=== PATIENT | male | born 1940 | race Caucasian/White ===

== ENCOUNTER → 2017-05-03 | Outpatient (CLI) | payer BC ==
[2017-05-03 08:51] LABS: BASO % 0.4 %; BASO ABS # 0.03 K/uL (0-0.2); COMPLETE YES; HEMATOCRIT 52.7 % (42-52); IG% 0.3 %; LYMPH % 14.9 %; LYMPH ABS # 1.15 K/uL (1.2-3.4); MEAN CELL VOLUME 89.6 fL (80-100); MEAN CORPUSCULAR HEMOGLOBIN 30.4 pg (25-34); MONO % 10.9 %; NEUT % 69.5 %; PLATELET COUNT 179 K/uL (130-400); RED BLOOD COUNT 5.88 M/uL (4.7-6.1)
[2017-05-03 09:13] LABS: AST/SGOT 28 U/L (15-37); BLOOD UREA NITROGEN 19 mg/dl (7-18); BUN/CREATININE RATIO 13.7 (10-20); CARBON DIOXIDE 28 mmol/L (21-32); CHLORIDE 105 mmol/L (98-107); GLUCOSE 91 mg/dl (70-99); POTASSIUM 4.1 mmol/L (3.5-5.1); SODIUM 141 mmol/L (136-145)
[2017-05-03 09:17] LABS: CALCIUM 8.4 mg/dl (8.5-10.1)
[2017-05-03 09:20] LABS: ESTIMATED AVERAGE GLUCOSE 123 mg/dl; HA1C FLAG Normal (Normal)
[2017-05-03 09:23] LABS: ALT/SGPT 55 U/L (12-78); CHOLESTEROL 183 mg/dl (0-200); CHOLESTEROL/HDL RATIO 4.1; HDL CHOLESTEROL 45 mg/dl; LDL CHOLESTEROL CALCULATED 102 mg/dl; TRIGLYCERIDES 180 mg/dl (0-150); VERY LOW DENSITY LIPOPROT CALC 36 mg/dl
== END | disposition home or self-care (01) ==
LOC: C.LAB 07:15
DX: E03.9 Hypothyroidism, unspecified (principal); E78.5 Hyperlipidemia, unspecified; R73.02 Impaired glucose tolerance (oral)

== ENCOUNTER → 2017-05-24 | Outpatient (CLI) | payer BC ==
[2017-05-27 20:18] LABS: ACETYLCHOLINE RECEP MODULATING 18; ACETYLCHOLINE RECEPT BLOCKING <15 % inhibit (<15); RECEPTOR BINDING AB <0.30 nmol/L (<=0.30)
== END | disposition home or self-care (01) ==
LOC: C.LAB 07:22
PROVIDERS: ATTEND Physician Assistant
DX: G70.00 Myasthenia gravis without (acute) exacerbation (principal)

== ENCOUNTER → 2017-07-05 | Outpatient (CLI) | payer BC ==
[2017-07-05 10:35] LABS: BASO % 0.4 %; BASO ABS # 0.03 K/uL (0-0.2); COMPLETE YES; EOS % 4.3 %; HEMATOCRIT 50.2 % (42-52); IG% 0.2 %; LYMPH ABS # 0.97 K/uL (1.2-3.4); MEAN CELL VOLUME 91.4 fL (80-100); MEAN CORPUSCULAR HEMOGLOBIN 30.1 pg (25-34); MEAN CORPUSCULAR HGB CONC 32.9 g/dl (32-36); MEAN PLATELET VOLUME 11.5 fL (7.4-10.4); MONO % 14.4 %; NEUT % 68.7 %; PLATELET COUNT 150 K/uL (130-400); RED BLOOD COUNT 5.49 M/uL (4.7-6.1); WHITE BLOOD COUNT 8.11 K/uL (4.8-10.8)
[2017-07-05 10:53] LABS: BLOOD UREA NITROGEN 23 mg/dl (7-18); BUN/CREATININE RATIO 20.5 (10-20); CALCIUM 8.7 mg/dl (8.5-10.1); CARBON DIOXIDE 30 mmol/L (21-32); CHLORIDE 109 mmol/L (98-107); CHOLESTEROL 248 mg/dl (0-200); GLUCOSE 89 mg/dl (70-99); POTASSIUM 4.4 mmol/L (3.5-5.1); SODIUM 140 mmol/L (136-145)
[2017-07-05 11:04] LABS: CHOLESTEROL/HDL RATIO 6.4; HDL CHOLESTEROL 39 mg/dl; LDL CHOLESTEROL CALCULATED 180 mg/dl; THYROID STIMULATING HORMONE 0.238 uIu/ml (0.300-4.500); TRIGLYCERIDES 146 mg/dl (0-150); VERY LOW DENSITY LIPOPROT CALC 29 mg/dl
== END | disposition home or self-care (01) ==
LOC: C.LAB 07:40
PROVIDERS: ATTEND Physician Assistant
DX: E03.9 Hypothyroidism, unspecified (principal); E78.5 Hyperlipidemia, unspecified; E29.1 Testicular hypofunction

== ENCOUNTER → 2017-08-12 | Outpatient (CLI) | payer BC ==
[2017-08-12 15:37] LABS: BASO % 0.3 %; BASO ABS # 0.02 K/uL (0-0.2); COMPLETE YES; HEMATOCRIT 48.7 % (42-52); IG% 0.3 %; LYMPH % 19.4 %; LYMPH ABS # 1.41 K/uL (1.2-3.4); MEAN CELL VOLUME 89.5 fL (80-100); MEAN CORPUSCULAR HEMOGLOBIN 30.1 pg (25-34); MEAN CORPUSCULAR HGB CONC 33.7 g/dl (32-36); MONO % 14.3 %; NEUT % 61.7 %; PLATELET COUNT 155 K/uL (130-400); RED BLOOD COUNT 5.44 M/uL (4.7-6.1); WHITE BLOOD COUNT 7.25 K/uL (4.8-10.8)
== END | disposition home or self-care (01) ==
LOC: C.LAB 14:45
PROVIDERS: ATTEND Physician Assistant
DX: G70.00 Myasthenia gravis without (acute) exacerbation (principal)

== ENCOUNTER → 2017-08-21 | Outpatient (CLI) | payer BC ==
--- NOTE | 2017-08-22 08:37 | PULMONARY FUNCTION TEST ---
Spirometry shows a mild decrease in both forced vital capacity and FEV1 with a normal FEV1/FVC ratio. This would represent mild restriction. Repeat study done following bronchodilator showed no significant change in function. Flow volume loops were consistent with spirometric findings. No prior studies were available for comparison.
== END | disposition home or self-care (01) ==
LOC: C.RC 12:28
DX: R06.00 Dyspnea, unspecified (principal); G70.00 Myasthenia gravis without (acute) exacerbation

== ENCOUNTER → 2017-10-24 | Outpatient (CLI) | payer BC ==
[2017-10-24 12:10] LABS: BASO % 0.4 %; BASO ABS # 0.03 K/uL (0-0.2); COMPLETE YES; EOS % 1.5 %; HEMATOCRIT 50.2 % (42-52); IG% 0.3 %; LYMPH % 10.8 %; LYMPH ABS # 0.78 K/uL (1.2-3.4); MEAN CELL VOLUME 88.7 fL (80-100); MEAN CORPUSCULAR HEMOGLOBIN 29.7 pg (25-34); MEAN CORPUSCULAR HGB CONC 33.5 g/dl (32-36); MEAN PLATELET VOLUME 11.1 fL (7.4-10.4); MONO % 9.8 %; NEUT % 77.2 %; PLATELET COUNT 151 K/uL (130-400); RED BLOOD COUNT 5.66 M/uL (4.7-6.1); WHITE BLOOD COUNT 7.25 K/uL (4.8-10.8)
[2017-10-24 12:22] LABS: ESTIMATED AVERAGE GLUCOSE 123 mg/dl; HA1C FLAG Normal (Normal)
[2017-10-24 12:37] LABS: BLOOD UREA NITROGEN 22 mg/dl (7-18); CALCIUM 8.8 mg/dl (8.5-10.1); CARBON DIOXIDE 27 mmol/L (21-32); CHLORIDE 105 mmol/L (98-107); GLUCOSE 93 mg/dl (70-99); POTASSIUM 4.4 mmol/L (3.5-5.1); SODIUM 137 mmol/L (136-145)
[2017-10-24 12:46] LABS: ALB/GLOB RATIO 1.3 (0.9-2); ALKALINE PHOSPHATASE 72 U/L (45-117); ALT/SGPT 37 U/L (12-78); AST/SGOT 24 U/L (15-37); FERRITIN 332.1 ng/ml (8.0-388.0)
== END | disposition home or self-care (01) ==
LOC: C.LAB 10:19
DX: E03.9 Hypothyroidism, unspecified (principal); R53.83 Other fatigue; F39 Unspecified mood [affective] disorder; E53.8 Deficiency of other specified B group vitamins

== ENCOUNTER → 2018-02-26 | Outpatient (CLI) | payer BC ==
[2018-02-26 12:30] LABS: BASO % 0.3 %; BASO ABS # 0.02 K/uL (0-0.2); EOS % 5.8 %; EOS ABS # 0.34 K/uL (0-0.5); HEMATOCRIT 44.6 % (42-52); HEMOGLOBIN 15.3 g/dL (14.0-18.0); IG# 0.02 K/uL (0.00-0.02); LYMPH % 23.9 %; MEAN CELL VOLUME 88.5 fL (80-100); MEAN CORPUSCULAR HEMOGLOBIN 30.4 pg (25-34); MEAN CORPUSCULAR HGB CONC 34.3 g/dl (32-36); MEAN PLATELET VOLUME 10.9 fL (7.4-10.4); MONO % 11.8 %; MONO ABS # 0.69 K/uL (0.11-0.59); NEUT % 57.9 %; NEUT ABS # 3.38 K/uL (1.4-6.5); PLATELET COUNT 159 K/uL (130-400); RED CELL DISTRIBUTION WIDTH CV 14.5 % (11.5-14.5); RED CELL DISTRIBUTION WIDTH SD 46.9 fL (36.4-46.3); WHITE BLOOD COUNT 5.85 K/uL (4.8-10.8)
[2018-02-26 12:47] LABS: ALBUMIN 3.9 gm/dl (3.4-5.0); ALT/SGPT 37 U/L (12-78); BLOOD UREA NITROGEN 17 mg/dl (7-18); CALCIUM 9.3 mg/dl (8.5-10.1); CARBON DIOXIDE 29 mmol/L (21-32); CREATININE 1.06 mg/dl (0.60-1.40); GLUCOSE 92 mg/dl (70-99); POTASSIUM 4.2 mmol/L (3.5-5.1); SODIUM 137 mmol/L (136-145)
[2018-02-26 12:50] LABS: ALKALINE PHOSPHATASE 60 U/L (45-117); AST/SGOT 28 U/L (15-37); TOTAL PROTEIN 7.4 gm/dl (6.4-8.2)
== END | disposition home or self-care (01) ==
LOC: C.LAB 10:31
PROVIDERS: ATTEND Physician Assistant
DX: G70.00 Myasthenia gravis without (acute) exacerbation (principal)

== ENCOUNTER → 2018-03-25 | Outpatient (CLI) | payer BC ==
--- NOTE | 2018-03-26 04:55 | PAP/PSG TECHNICIAN REPORT ---
[facility] Assessment Nurse Polysomnogram Report Study name: None Report date: 03/26/2018 Study date: 03/25/2018 Referring Physician: Dr. Umang Daly DO Name: KIARA COTA Interpreting Physician: Umang Daly D.O. Date of : 1940 Assessment Nurse: WILFREDO Morley. Sex: Male Age: 77 StudyType: PSG PAP Weight: 185 lbs Height: 77 years, Height 6' 1" Neck Circum:15.75inches BMI: 24.41 Medications: Levothyroxine 137mcg, Mycophenolate Mefetil 500mg, Pyridostigmine Shepherd 60mg, ASA 81mg, Depakote ER 250mg, Mirtazapine 30mg, Multivitamins, Sertraline HCl Vit D3 2000unit Patient History Study started on room air with bipap+ 8/4 in room #6. 77 yr old male here tonight for a bipap titration study. He has been using cpap for many years but has been having difficulty exhaling. He is her for a trial of bipap. His neck circ=15.75inches. ESS=6/24. Parameters Monitored NPSG: E1-M2, E2-M1, Fp1-M2, Fp2-M1, F3-M2, F4-M2, F4-M1, C3-M2, C4-M2, C4-M1, O1-M2, O2-M2, O2-M1, T3-M2, T4-M1, P3-M2, P4-M1, CHIN1, CHIN2, HR, EKG, Legs, PFLOW, SNOR, FLOW, CFLOW, Tidal Volume, THOR, ABDO, SpO2, PLTH, CPRESS, ETCO2 Wave, ETCO2, pH Sleep Architecture Sleep Stages Time at Lights Off 10:11:11 PM STAGES Time (min.) TST (%) Time at Lights On 4:47:11 AM Wake 67.0 -- Total Recording Time (TRT) 396.00 min. N1 32.5 10 Total Sleep Period (TSP) 356.5 min. N2 217.0 66 Total Sleep Time (TST) 329.0min. N3 44.5 14 Awake Time 67.0 min. REM 35.0 11 Wake after Sleep Onset 46.5 min. Sleep Efficiency (SE) 83 % Sleep Onset Latency (PATRICIA) 20.5 min. Number of Stage 1 Shifts None Awakenings 24 Stage Changes 131 Number of REM periods 1 REM 35.0 11 REM Latency 321.5 min. NREM 294.0 89 Body Position Analysis Supine Right Left Side Prone Vertical Total Sleep Time (min.) 153.0 169.5 52.5 222.00 0.0 0.0 Total Sleep Time (%) 33% 52% 16% 67 0% N/A% Total Sleep Time REM (min.) 0.0 35.0 0.0 None 0.0 0.0 Total Sleep Time NREM (min.) 107.0 134.5 52.5 None 0.0 0.0 Intermittent Wake (min.) 46.0 14.4 6.6 None 0.0 0.0 Total Sleep Period (%) 32% None None None None None Arousals Myoclonus (PLM) * Events Count Index Events Count Index Spontaneous 32 6 Events Awake (PLMW) 91 81.5 Respiratory 1 0.2 Events Asleep w/ Arousal (PLMA) 27 4.9 PLM 27 5 Events Asleep w/o Arousal (PLMS) 141 25.7 Snoring 8 1 Total Asleep 168 30.6 Total 68 12 Total 259 39 Respiratory Analysis * CA OA MA CH H RERA Total Count 0 1 0 0 3 0 4 Index 0.0 0.2 0.0 0 0.5 0 0.7 Mean Duration 0.0 23.2 0.0 0.00 23.3 0.0 23.3 Longest Duration 0.0 23.2 0.0 0.00 0.0 0.0 27.5 Respiratory Event Summary Total Supine ~Supine Right Left Prone REM NREM Apneas Count 1 1 0 0 0 N/A 0 1 Index 0.2 1 0 0.0 0.0 N/A 0 0 Hypopneas (4% Desat) Count 3 3 0 0 0 N/A 0 3 Index 0.5 1.7 0 0.0 0.0 N/A 0.0 0.6 Apneas & All Hypopneas Count 4 4 0 0 0 N/A 0 4 Index 0.7 2 0 0 0 N/A 0.0 0.8 Respiratory Events (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 And 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 Hyp+RERA) Count 4 4 0 0 0 N/A 0 4 Index 0.7 2 0 0.0 0.0 N/A 0.0 0.8 Respiratory Related Arousal Count 1 4 0 0 0 N/A 0 1 Index 0.2 1 0 0 0 N/A 0 0 Snoring Analysis Supine Right Left Prone REM NREM Total Snore duration 3.5 min Snores count 26 19 6 N/A 0 51 51 Snore mean duration 4.1 Sec Snores index 15 7 7 N/A 0.0 10.4 9.3 TST with snoring (%) 1.1% Desaturation Event Summary: Minimum %SpO2 Event Count Mean/Min/Max Duration(sec.) Desaturation Index % Time In Bed > 90 11 26.7 / 11.0 / 60.0 1.9 89.4 86 - 90 0 N/A 0.0 10.6 81 - 85 0 N/A 0.0 0.0 76 - 80 0 N/A 0.0 0.0 71 - 75 0 N/A 0.0 0.0 66 - 70 0 N/A 0.0 0.0 61 - 65 0 N/A 0.0 0.0 56 - 60 0 N/A 0.0 0.0 51 - 55 0 N/A 0.0 0.0 < 50 0 N/A 0.0 0.0 Total REM NREM Awake <50% 0.0 min. 0.0 min. 0.0 min. 0.0 min. 51 - 60% 0.0 min. 0.0 min. 0.0 min. 0.0 min. 61 - 70% 0.0 min. 0.0 min. 0.0 min. 0.0 min. 71 - 80% 0.0 min. 0.0 min. 0.0 min. 0.0 min. 81 - 90% 41.0 min. 0.0 min. 37.9 min. 3.0 min. 91 - 100% 343.9 min. 35.0 min. 254.0 min. 54.9 min. Average 92 93 92 93 Minimum SpO2 86 91 86 88 Desaturation Event Index 1.7 0.0 1.0 5.4 # Desat. Events below 89% 3 N/A 3 N/A Time(%) with Saturation below 89% 0.2 0.0 0.2 0.1 Time(min.) with Saturation below 89% 0.8 0.0 0.6 0.2 Time (mins) REM (mins) NREM (mins) % of TST SpO2 Below 90% 4 N/A N4 1.9 SpO2 Below 88% 2 0 0 0 Heart Rate Analysis Min (bpm) Max (bpm) Average (bpm) Awake 40 127 72 NREM 58 127 70 REM 64 75 68 Overall 58 127 69 Supplemental O2 Values Minimum O2 level: None Value Start Time End Time Assessment Nurse Comments Mr. Cota slept in the right, left and supine positions. No cardiac arrhythmia noted. PLM's were noted. No bruxism noted. PAP initiated at an IPAP of +8 CMH2O and an EPAP of +4 CMH2O which nearly eliminated all respiratory events and snoring. His own Air Fit F20 full facemask by [employer] was used during titration. He did not use the restroom during the night. He stated that he slept great and would like to come back and sleep here again tonight. The final report will be interpreted and signed by a sleep physician. The completed physician report will then be placed in the patient medical record. Therapy Event: Therapy (cm H20) 06/20 Total Time at Pressure (min.) 395.8 TST at Pressure (min.) 329.0 # Periods 1 Sleep Onset (min.) 20.3 REM Onset (min.) 341.8 Sleep Efficiency % 83 Wakefulness (%) 16.9 Wakefulness (min.) 66.8 NREM 1 (%) 8.2 NREM 1 (min.) 32.5 NREM 2 (%) 54.8 NREM 2 (min.) 217.0 NREM 3 (%) 11.2 NREM 3 (min.) 44.5 REM (%) 8.8 REM (min.) 35.0 # Arousals 68 Arousal Index 12.4 # Snore 51 Snore Index 9.3 AHI 0.7 AHI Supine 2.2 AHI Non-Supine 0.0 NREM AHI 0.8 REM AHI 0.0 RDI 0.7 # Obstructive 1 # Central Ap 0 # Mixed 0 # Hypopneas 3 RERAS 0 Total Respiratory Events 4 Time Below SpO2 89.00% (min.) 0.6 Mean NREM SpO2 (%) 92 Mean REM SpO2 (%) 93 Mean Sleep SpO2 (%) 92 Min NREM SpO2 (%) 86 Min REM SpO2 (%) 91 Position Supine (min.) 107.0 Position Non-supine (min.) 222.0 LM Index Sleep 30.6 LM Index NREM 33.3 LM Index REM 8.6 Mean Heart Rate (bpm) 69 Min Heart Rate (bpm) 58
--- NOTE | 2018-03-28 15:06 | POLYSOMNOGRAPH REPORT ---
SLEEP STUDY REPORT CLINICAL DATA: The patient is a 77-year-old male who has a history of sleep apnea diagnosed from a home study in 2015. He has been on auto CPAP since then, but not doing well. His compliance data has not been good. He complains of difficulty exhaling. The patient comes to the sleep lab for a BiPAP titration study. SLEEP ARCHITECTURE: The total sleep period was 356.5 minutes. The total sleep time was 329 minutes. The sleep efficiency was mildly reduced at 83%. The sleep latency was 20.5 minutes. Wake after sleep onset was 46.5 minutes. The REM latency was prolonged to 321.5 minutes. There was only 1 REM period during the night. Sleep consisted of stage N1 10%, stage N2 66%, stage N3 14%, stage REM 11%. AROUSAL DATA: The patient had a total of 68 arousals including 32 spontaneous arousals, 1 respiratory arousal, 27 PLM arousals, and 8 snoring arousals. The arousal index was 12. PLM DATA: The patient had a total of 168 periodic limb movements of sleep for a PLM index of 30.6. There were 27 arousals, associated with limb movements for a PLM arousal index of 4.9. EKG: The underlying cardiac rhythm was normal sinus. He had at times frequent PACs. The cardiac rates ranged from 58-75 beats per minute. The average heart rate was 69 beats per minute. RESPIRATORY DATA: The patient's nocturnal events were treated with BiPAP. He had a total of 4 respiratory events including 1 obstructive apnea and 3 hypopneas. Hypopneas were scored according to the 4% desaturation rule. The apnea was 23.2 seconds. The mean duration of hypopneas was 23.3 seconds. The apnea hypopnea index was only 0.7 events per hour, suggesting no significant sleep apnea. The patient was maintained on BiPAP 8/4 throughout the night. OXIMETRY DATA: The average saturation for the night was 92%. The minimum saturation was 86%. There was a total of 0.8 minutes with saturations less than 89%. 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 PLMs were noted. No bruxism noted. BiPAP was initiated at IPAP 8 and EPAP 4 which nearly eliminated all respiratory events and snoring. His own AirFit F20 full facemask by [employer] was used during titration. He did not use the restroom during the night. He stated that he slept great and would like to come back and sleep again tonight. IMPRESSION: 1. Obstructive sleep apnea - treated with BiPAP 06/20. 2. Cardiac arrhythmia - PACs. COMMENTS: The patient overall did well. His sleep efficiency was mildly reduced. He had only 1 REM episode and there was a delayed REM latency. However, he is on mirtazapine which may suppress REM sleep. Otherwise, the patient slept well and tolerated BiPAP without symptoms. RECOMMENDATIONS: 1. It is advised that the patient be started on BiPAP 06/20. 2. He can continue to wear his current mask which is a [employer] AirFit F20 full facemask. 3. The patient should be advised of the appropriate principles of sleep hygiene. 4. Clinical followup is required along with compliance data to determine if BiPAP has been well tolerated.
== END | disposition home or self-care (01) ==
LOC: C.NEUR 20:00
PROVIDERS: ATTEND Internal Medicine Pulmonary Disease
DX: G47.33 Obstructive sleep apnea (adult) (pediatric) (principal); J98.4 Other disorders of lung; G70.00 Myasthenia gravis without (acute) exacerbation

== ENCOUNTER 2022-09-23 20:19 | Observation (INO) ==
[2022-09-23 21:40] LABS: Alanine Aminotransferase 17 U/L (7-52); Albumin Globulin Ratio 1.6 (0.9-2); Albumin Level 4.9 gm/dl (3.4-5.0); Alkaline Phosphatase 78 U/L (34-104); Anion Gap 9 (3-11); Aspartate Aminotransferase 21 U/L (13-39); BUN Creatinine Ratio 12.6 (10-20); Bilirubin,Total 0.9 mg/dl (0.2-1.0); Blood Urea Nitrogen 14 mg/dl (6-23); Calcium 9.7 mg/dl (8.5-10.1); Carbon Dioxide 25 mmol/L (21-32); Chloride 102 mmol/L (98-107); Est GFR (African American) 70.8 ml/min; Est GFR (Non-African American) 61.1 ml/min; Glucose 85 mg/dl (70-99(Fasting)); Potassium 4.6 mmol/L (3.5-5.1); Sodium 136 mmol/L (136-145); Total Protein 7.9 gm/dl (6.0-8.3)
[2022-09-23 21:41] LABS: Troponin I High Sensitivity 11.5 pg/ml (0-20)
[2022-09-23 21:42] LABS: Appearance Urine Clear (Clear); Bacteria Urine Automated Negative (Negative); Bilirubin Urine Negative (Negative); Blood Urine 1+ (Negative); Color Urine Yellow; Epithelial Cell Urine Auto 0-5 /lpf (0-5); Glucose Urine UA Negative (Negative); Ketones Urine 1+ (Negative); Leukocyte Esterase Urine Negative (Negative); Nitrite Urine Negative (Negative); Protein Urine Negative (Negative); RBC Urine Automated 0-4 /hpf (0-4); Specific Gravity Urine 1.016 (1.000-1.030); Urobilinogen Urine Negative (Negative); WBC Urine Automated 0 /hpf (0-5); pH Urine 5.5 (4.5-7.5)
[2022-09-23 22:08] LABS: Basophils # (auto) 0.04 K/uL (0-0.2); Basophils % (auto) 0.5 %; Eosinophils # (auto) 0.05 K/uL (0-0.50); Eosinophils % (auto) 0.7 %; Hematocrit (blood only) 45.3 % (40.1-51.0); Hemoglobin 15.8 g/dl (14.0-18.0); Immature Granulocytes # (auto) 0.01 K/uL (0.00-0.02); Immature Granulocytes % (auto) 0.1 %; Lymphocytes # (auto) 1.07 K/uL (1.2-3.4); Lymphocytes % (auto) 14.2 %; Mean Corpuscular Hgb Conc 34.9 g/dL (32.0-36.0); Mean Corpuscular Volume 88.8 fL (80.0-100.0); Mean Platelet Volume 11.5 fL (9.4-12.4); Monocytes # (auto) 0.63 K/uL (0.24-0.82); Monocytes % (auto) 8.4 %; Neutrophils # (auto) 5.72 K/uL (1.4-6.5); Neutrophils % (auto) 76.1 %; Platelet Count 142 K/uL (130-400); RDW Coefficient of Variation 13.3 % (11.5-14.5); RDW Standard Deviation 43.8 fL (36.4-46.3); White Blood Count 7.52 K/ul (4.8-10.8)
[2022-09-23] MEDS ORDERED: SODIUM CHLORIDE 0.9% 1000ML 500 ML IV ONE (22:08)
[2022-09-23] MEDS ORDERED: KETOROLAC TROMETHAMINE 15 MG/ML VIAL IV STA (22:23)
--- NOTE | 2022-09-23 22:34 | Emergency Department Note ---
Impression & Plan Weakness, Falling, Cough, Influenza A ED Provider Note NAME: KIARA COTA AGE: 81 SEX: M : 1940 ARRIVES VIA: Ambulance INFORMANT: [Patient][family, EMS] ED PROVIDER(S): [Qasim Kennedy MD] CHIEF COMPLAINT: Weakness, falling HISTORY OF PRESENT ILLNESS: The patient is an 81-year-old male who truly has been feeling weaker for about a year but, in the last 2 days, he has been quite a bit worse. He has had a cough and some congestion and burning in his chest. He feels short of breath but states this is not really all that unusual. No fever. No vomiting or urinary complaints. The patient actually fell 3 times today and the last time, really could not get up and had to call EMS. Of note, the patient's is ill with a cough, she is on a Z-Umberto. The patient denies any sick exposures except for his . The patient did not lose consciousness with his falls, he denies any injury. The last time he fell, he slid off the bed. REVIEW OF SYSTEMS: See HPI for pertinent positives and negatives. A total of ten systems were reviewed and were otherwise negative. PMHx/PSHx: See Below SOCIAL HISTORY: See Below. PHYSICAL EXAM: GENERAL: Patient is in no acute distress. HEENT: No acute trauma, normocephalic atraumatic, mucous membranes dry, no nasal congestion, no scleral icterus. NECK: No stridor, no adenopathy, no meningismus, trachea is midline. LUNGS: Crackles at the left base, no wheezing. No respiratory distress HEART: Mildly tachycardic, regular rhythm, no murmurs. ABDOMEN: Soft, nontender, bowel sounds positive, no peritonitis. EXTREMITIES: No cyanosis or edema, full range of motion of all the joints without pain or difficulty, no signs for acute trauma. NEUROLOGIC: Oriented x 3, no acute motor or sensory deficits, no focal weakness. SKIN: No rash, no jaundice, no diaphoresis. DIFFERENTIAL DIAGNOSIS: Infection, dehydration, metabolic abnormality, UTI, COVID-19, RSV, influenza, bronchitis, hypo/hyperglycemia, electrolyte disturbance, anemia, hypoxia, cardiac sources, intracerebral event, toxicologic issues, stroke, TIA, as well as other pathologies. EMERGENCY DEPARTMENT COURSE/PROCEDURES: ECG: Indication was weakness. The ECG shows a sinus tachycardia with a first- degree AV block. There is some baseline artifact and some nonspecific ST change. There is no ST elevation. No PVCs. The QTc is 409. Continuous Cardiac Monitoring: An order was placed for continuous cardiac monitoring. The monitor shows a rate of 104 with sinus tachycardia. MEDICAL DECISION MAKING: There is no leukocytosis or concerning anemia. There is a normal platelet count. No renal failure or significant electrolyte abnormality. Lactic acid level is not elevated making sepsis less likely. ECG shows a sinus tachycardia with a first-degree AV block, no ischemia. Cardiac enzyme testing x1 is not not consistent with acute cardiac injury. TSH is slightly elevated. Urinalysis does not show infection. COVID and RSV test were negative. Influenza A test was positive. Chest film does not show pneumonia or CHF. Brain CT showed no acute bleed or mass-effect. On exam, the patient seemed a bit dehydrated, he was mildly tachycardic. The patient received IV saline, 500 cc. He was given IV Toradol for pain, he received oral Tamiflu. The patient has influenza A. I suspect this has led to his cough increasing weakness and falling. He is not safe for discharge home. Hospitalization and further care is warranted. I spoke with the patient and his family, I spoke with the on-call hospitalist, case management has been involved. Past Med/Surg History Medical History Abnormal gag reflex RESOLVED Anxiety Chronic fatigue unknown cause Chronic sore throat year around -- unknown reason. following with PCP (possibly could be spinal stenosis) Depression GERD (gastroesophageal reflux disease) Hearing deficit History of COVID-19 x2 (October 2020 - treated through the emergency room & spring - asymptomatic) no current problems. History of Mohs micrographic surgery for skin cancer Hx of basal cell carcinoma Hx of squamous cell carcinoma of the skin Hypothyroidism Myasthenia gravis WAS DIAGNOSED INCORRECTLY> DID NOT HAVE THIS Osteoarthritis Pneumothorax partially collapsed right lung -> incidentally found on scans at [facility] and treated with [facility] ~Spring 2020. patient does state he still has sob occasionally, he does monitor his oxygen levels at home and they have been "fine", 94-95% on RA. does not use oxygen. Sleep apnea unable to use cpap machine. Spinal stenosis Weight loss RESOLVED Surgical History History of bilateral cataract extraction History of colonoscopy History of endoscopic sinus surgery x2 History of right inguinal hernia repair History of tonsillectomy and adenoidectomy History of tooth extraction Hx of vasectomy S/P epidural steroid injection LESI Family History Mother Lung cancer Father Stroke Tremor Other No family history of adverse response to anesthesia Social History Smoking Status: Never smoker Second Hand Exposure: No; Hx Alcohol Use: No Hx Substance Use: No Preferred Language: Hebrew Communication Ability: Effective 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 Beliefs That Will Affect Care: None Current Living Situation: Spouse Feels Safe at Home: Yes Assistive Devices: Cane, Glasses, Hearing Aid - Bilateral and Walker Allergies Allergies Allergy/AdvReac Type Severity Reaction Status Date / Time No Known Allergies Allergy Verified 09/23/22 22:43 Home Meds Home Medications Medication Instructions Recorded Confirmed cholecalciferol (vitamin D3) 50 2,000 unit PO QAM 01/20/19 09/23/22 mcg (2,000 unit) capsule (Vitamin D3) levothyroxine 137 mcg tablet 137 mcg PO QAM 01/20/19 09/23/22 multivitamin 1 tab PO QAM 01/20/19 09/23/22 sertraline 100 mg tablet 200 mg PO 08/18/19 09/23/22 azelastine 205.5 mcg (0.15 %) 2 spray intranasal HS 09/26/20 09/23/22 nasal spray famotidine 40 mg tablet (Pepcid) 40 mg PO HS 08/12/22 09/23/22 ropinirole 1 mg tablet 1 mg PO 08/12/22 09/23/22 tamsulosin 0.4 mg capsule 0.8 mg PO 08/12/22 09/23/22 salmon oil 1,000 mg-omega-3 fatty 2 cap PO QAM 09/23/22 09/23/22 acids 210 mg capsule Results & Data (ED) Vital Signs Vital Signs - 24 hr 09/23/22 20:10 09/23/22 20:10 09/23/22 20:10 Temperature 37.1 C Temperature Source Oral Pulse Rate 103 H Pulse Rate [Apical] 101 H Pulse Rhythm Regular Pulse Rhythm [Apical] Regular Pulse Strength Normal Pulse Strength [Apical] Normal Respiratory Rate 19 22 Respiratory Effort / Characteristics Non-Labored Non-Labored Respiratory Depth Normal Normal Respiratory Pattern Regular Regular Blood Pressure 163/75 H Blood Pressure [Right Arm] 163/75 H Blood Pressure Mean 104 Blood Pressure Mean [Right Arm] 104 Blood Pressure Position Lying Blood Pressure Position [Right Arm] Lying Pulse Oximetry 98 94 94 Oxygen Delivery Method Room Air Room Air Room Air Sepsis Recent Fever Within 48 Hours No Sepsis New/Unexplained Change in Mental Status N/A Sepsis Action Taken by Nursing No Action Required 09/23/22 22:10 09/23/22 23:41 Temperature 37.5 C Temperature Source Oral Pulse Rate Pulse Rate [Apical] 104 H 98 H Pulse Rhythm Pulse Rhythm [Apical] Pulse Strength Pulse Strength [Apical] Respiratory Rate 21 22 Respiratory Effort / Characteristics Respiratory Depth Respiratory Pattern Blood Pressure Blood Pressure [Right Arm] 141/80 H 141/71 H Blood Pressure Mean Blood Pressure Mean [Right Arm] 100 94 Blood Pressure Position Blood Pressure Position [Right Arm] Pulse Oximetry 93 94 Oxygen Delivery Method Room Air Sepsis Recent Fever Within 48 Hours Sepsis New/Unexplained Change in Mental Status Sepsis Action Taken by Residential Medications Current Medication List: was personally reviewed by me Laboratory Data Attestation: I reviewed the patient's lab results. Result diagrams: 09/23/22 20:29 09/23/22 20:29 Lab Results 09/23/22 09/23/22 09/23/22 Range/Units 20:29 20:29 20:29 WBC 7.52 (4.8-10.8) K/ul RBC 5.10 (4.63-6.08) M/uL Hgb 15.8 (14.0-18.0) g/dl Hct 45.3 (40.1-51.0) % MCV 88.8 (80.0-100.0) fL MCH 31.0 (25.0-34.0) pg MCHC 34.9 (32.0-36.0) g/dL RDW Std Deviation 43.8 (36.4-46.3) fL RDW Coeff of Anita 13.3 (11.5-14.5) % Plt Count 142 (130-400) K/uL MPV 11.5 (9.4-12.4) fL Immature Gran % (Auto) 0.1 % Neut % (Auto) 76.1 % Lymph % (Auto) 14.2 % Storey % (Auto) 8.4 % Eos % (Auto) 0.7 % Baso % (Auto) 0.5 % Neut # (Auto) 5.72 (1.4-6.5) K/uL Lymph # (Auto) 1.07 L (1.2-3.4) K/uL Storey # (Auto) 0.63 (0.24-0.82) K/uL Eos # (Auto) 0.05 (0-0.50) K/uL Baso # (Auto) 0.04 (0-0.2) K/uL Immature Gran # (Auto) 0.01 (0.00-0.02) K/uL Sodium 136 (136-145) mmol/L Potassium 4.6 (3.5-5.1) mmol/L Chloride 102 (98-107) mmol/L Carbon Dioxide 25 (21-32) mmol/L Anion Gap 9 (3-11) BUN 14 (6-23) mg/dl Creatinine 1.11 (0.6-1.4) mg/dl Est Cr Clr Drug Dosing Not Reportable Est GFR ( Amer) 70.8 ml/min Est GFR (Non-Af Amer) 61.1 ml/min BUN/Creatinine Ratio 12.6 (10-20) Glucose 85 (70-99(Fasting)) mg/dl Lactate (0.4-2.0) mmol/L Calcium 9.7 (8.5-10.1) mg/dl Magnesium (1.7-2.4) mg/dl Total Bilirubin 0.9 (0.2-1.0) mg/dl AST 21 (13-39) U/L ALT 17 (7-52) U/L Alkaline Phosphatase 78 (34-104) U/L Troponin I High Sens 11.5 (0-20) pg/ml Total Protein 7.9 (6.0-8.3) gm/dl Albumin 4.9 (3.4-5.0) gm/dl Globulin 3.0 (2.5-4.0) gm/dl Albumin/Globulin Ratio 1.6 (0.9-2) TSH 4.591 H (0.300-4.500) uIu/ml Urine Color Urine Appearance (Clear) Urine pH (4.5-7.5) Ur Specific [place] (1.000-1.030) Urine Protein (Negative) Urine Glucose (UA) (Negative) Urine Ketones (Negative) Urine Blood (Negative) Urine Nitrite (Negative) Urine Bilirubin (Negative) Urine Urobilinogen (Negative) Ur Leukocyte Esterase (Negative) Urine WBC (Auto) (0-5) /hpf Urine RBC (Auto) (0-4) /hpf U Hyaline Cast (Auto) (0-5) /lpf U Epithel Cells (Auto) (0-5) /lpf Urine Bacteria (Auto) (Negative) SARS-CoV-2 (PCR) (Negative) Influenza Type A (PCR) (Neg) Influenza Type B (PCR) (Neg) RSV (RT-PCR) (Neg) 09/23/22 09/23/22 09/23/22 Range/Units 20:29 21:21 22:15 WBC (4.8-10.8) K/ul RBC (4.63-6.08) M/uL Hgb (14.0-18.0) g/dl Hct (40.1-51.0) % MCV (80.0-100.0) fL MCH (25.0-34.0) pg MCHC (32.0-36.0) g/dL RDW Std Deviation (36.4-46.3) fL RDW Coeff of Anita (11.5-14.5) % Plt Count (130-400) K/uL MPV (9.4-12.4) fL Immature Gran % (Auto) % Neut % (Auto) % Lymph % (Auto) % Storey % (Auto) % Eos % (Auto) % Baso % (Auto) % Neut # (Auto) (1.4-6.5) K/uL Lymph # (Auto) (1.2-3.4) K/uL [place] # (Auto) (0.24-0.82) K/uL Eos # (Auto) (0-0.50) K/uL Baso # (Auto) (0-0.2) K/uL Immature Gran # (Auto) (0.00-0.02) K/uL Sodium (136-145) mmol/L Potassium (3.5-5.1) mmol/L Chloride (98-107) mmol/L Carbon Dioxide (21-32) mmol/L Anion Gap (3-11) BUN (6-23) mg/dl Creatinine (0.6-1.4) mg/dl Est Cr Clr Drug Dosing Est GFR ( Amer) ml/min Est GFR (Non-Af Amer) ml/min BUN/Creatinine Ratio (10-20) Glucose (70-99(Fasting)) mg/dl Lactate (0.4-2.0) mmol/L Calcium (8.5-10.1) mg/dl Magnesium 2.2 (1.7-2.4) mg/dl Total Bilirubin (0.2-1.0) mg/dl AST (13-39) U/L ALT (7-52) U/L Alkaline Phosphatase (34-104) U/L Troponin I High Sens (0-20) pg/ml Total Protein (6.0-8.3) gm/dl Albumin (3.4-5.0) gm/dl Globulin (2.5-4.0) gm/dl Albumin/Globulin Ratio (0.9-2) TSH (0.300-4.500) uIu/ml Urine Color Yellow Urine Appearance Clear (Clear) Urine pH 5.5 (4.5-7.5) Ur Specific [place] 1.016 (1.000-1.030) Urine Protein Negative (Negative) Urine Glucose (UA) Negative (Negative) Urine Ketones 1+ H (Negative) Urine Blood 1+ H (Negative) Urine Nitrite Negative (Negative) Urine Bilirubin Negative (Negative) Urine Urobilinogen Negative (Negative) Ur Leukocyte Esterase Negative (Negative) Urine WBC (Auto) 0 (0-5) /hpf Urine RBC (Auto) 0-4 (0-4) /hpf U Hyaline Cast (Auto) 1-5 (0-5) /lpf U Epithel Cells (Auto) 0-5 (0-5) /lpf Urine Bacteria (Auto) Negative (Negative) SARS-CoV-2 (PCR) NEGATIVE (Negative) Influenza Type A (PCR) Positive A* (Neg) Influenza Type B (PCR) Negative (Neg) RSV (RT-PCR) Negative (Neg) 09/23/22 Range/Units 22:34 WBC (4.8-10.8) K/ul RBC (4.63-6.08) M/uL Hgb (14.0-18.0) g/dl Hct (40.1-51.0) % MCV (80.0-100.0) fL MCH (25.0-34.0) pg MCHC (32.0-36.0) g/dL RDW Std Deviation (36.4-46.3) fL RDW Coeff of Anita (11.5-14.5) % Plt Count (130-400) K/uL MPV (9.4-12.4) fL Immature Gran % (Auto) % Neut % (Auto) % Lymph % (Auto) % Storey % (Auto) % Eos % (Auto) % Baso % (Auto) % Neut # (Auto) (1.4-6.5) K/uL Lymph # (Auto) (1.2-3.4) K/uL [place] # (Auto) (0.24-0.82) K/uL Eos # (Auto) (0-0.50) K/uL Baso # (Auto) (0-0.2) K/uL Immature Gran # (Auto) (0.00-0.02) K/uL Sodium (136-145) mmol/L Potassium (3.5-5.1) mmol/L Chloride (98-107) mmol/L Carbon Dioxide (21-32) mmol/L Anion Gap (3-11) BUN (6-23) mg/dl Creatinine (0.6-1.4) mg/dl Est Cr Clr Drug Dosing Est GFR ( Amer) ml/min Est GFR (Non-Af Amer) ml/min BUN/Creatinine Ratio (10-20) Glucose (70-99(Fasting)) mg/dl Lactate 0.9 (0.4-2.0) mmol/L Calcium (8.5-10.1) mg/dl Magnesium (1.7-2.4) mg/dl Total Bilirubin (0.2-1.0) mg/dl AST (13-39) U/L ALT (7-52) U/L Alkaline Phosphatase (34-104) U/L Troponin I High Sens (0-20) pg/ml Total Protein (6.0-8.3) gm/dl Albumin (3.4-5.0) gm/dl Globulin (2.5-4.0) gm/dl Albumin/Globulin Ratio (0.9-2) TSH (0.300-4.500) uIu/ml Urine Color Urine Appearance (Clear) Urine pH (4.5-7.5) Ur Specific [place] (1.000-1.030) Urine Protein (Negative) Urine Glucose (UA) (Negative) Urine Ketones (Negative) Urine Blood (Negative) Urine Nitrite (Negative) Urine Bilirubin (Negative) Urine Urobilinogen (Negative) Ur Leukocyte Esterase (Negative) Urine WBC (Auto) (0-5) /hpf Urine RBC (Auto) (0-4) /hpf U Hyaline Cast (Auto) (0-5) /lpf U Epithel Cells (Auto) (0-5) /lpf Urine Bacteria (Auto) (Negative) SARS-CoV-2 (PCR) (Negative) Influenza Type A (PCR) (Neg) Influenza Type B (PCR) (Neg) RSV (RT-PCR) (Neg) Administered Medications Discontinued Medications Sodium Chloride (Nss 1000ml) 500 mls @ 999 mls/hr IV .Q31M ONE Stop: 09/23/22 22:38 Last Infusion: 09/23/22 22:54 Dose: 0 mls/hr Documented By: Admin: 09/23/22 22:23 Dose: 999 mls/hr Documented By: JOHNNIE Ketorolac Tromethamine (Ketorolac Tromethamine 15 Mg/Ml Vial) 15 mg IV NOW STA Stop: 09/23/22 22:24 Last Admin: 09/23/22 23:01 Dose: 15 mg Documented By: BIRGIT Oseltamivir Phosphate (Oseltamivir Phosphate 75 Mg Cap) 75 mg PO NOW STA; Protocol Stop: 09/23/22 23:19 Last Admin: 09/23/22 23:40 Dose: 75 mg Documented By: SHARON Imaging Data Attestation: I personally reviewed and interpreted this imaging study as foll ows: My Impression: Chest x-ray: There is some chronic change, no pneumonia, CHF or pneumothorax. Radiologist's Impression: Brain CT: No intracranial hemorrhage or mass-effect, no edema. No acute cortical stroke. Sinuses appear clear. Discharge Plan Visit Data Chief Complaint: Weakness ED Provider: Feese,Qasim J Discharge Problem: Weakness, Falling, Cough, Influenza A Patient Disposition: Admitted As Inpatient Condition: Fair Forms Stand Alone Forms: My [facility] [employer] Prescriptions Prescriptions: No Action sertraline 100 mg tablet 200 mg PO HS azelastine 0.15 % (205.5 mcg) spray,non-aerosol 2 spray intranasal HS Rx Instructions: administer into each nostril multivitamin Tablet 1 tab PO QAM levothyroxine 137 mcg Tablet 137 mcg PO QAM cholecalciferol (vitamin D3) [Vitamin D3] 2,000 unit Capsule 2,000 unit PO QAM ropinirole 1 mg Tablet 1 mg PO HS Rx Instructions: administer 1-3 hours before bedtime tamsulosin 0.4 mg Capsule 0.8 mg PO HS famotidine [Pepcid] 40 mg Tablet 40 mg PO HS salmon oil-omega-3 fatty acids 1,000-210 mg Capsule 2 cap PO QAM Referrals Referrals: Zachary Pablo Jr, [Primary Care Provider] -
[2022-09-23 23:12] LABS: Influenza B virus by PCR Negative (Neg); RSV by PCR Negative (Neg); SARS CoV2 RNA(COVID-19)Cepheid NEGATIVE (Negative)
[2022-09-23 23:16] LABS: Influenza A virus by PCR Positive (Neg)
[2022-09-23] MEDS ORDERED: OSELTAMIVIR PHOSPHATE 75 MG CAP PO STA (23:18)
--- NOTE | 2022-09-23 23:33 | History & Physical Report ---
Date of Service September 23, 2022 Assessment & Plan (1) Influenza A: Plan: Influenza A- Likely cause of worsening recent generalized weakness Tamiflu 75 mg p.o. twice daily, with first dose given in ED NSS + KCl 20 mEq at 80 mils per hour x1 L (2) Vitamin D deficiency: Plan: Continue vitamin D3 2000 international units p.o. every morning (3) Impaired gait: Plan: Impaired gait/idiopathic polyneuropathy/lumbar spinal stenosis- Likely all contributing to problems with generalized weakness and ambulatory dysfunction Consult PT/OT if symptoms do not improve after treatment for influenza A (4) Idiopathic polyneuropathy: (5) Cervical spinal stenosis: (6) Spinal stenosis of lumbar region: Plan: Patient reports his last injection with Dr. 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 at bedtime (12) Restless leg syndrome: Plan: Continue ropinirole 1 mg at bedtime History of Present Illness Chief Complaint: The patient presents to the emergency department with complaint of worsening generalized weakness over the past year, but in particular over the past 2 days, accompanied by nasal congestion, cough and burning in his chest. He also reports having fallen 1 time yesterday, and 3 times today, with the last time not being able to get up off the floor, and thus had to call EMS, which brought him to the ED for assessment Primary Care Provider: Zachary Pablo Jr, DO The patient is an 81-year-old male with past medical history including BPH with LUTS, depression, hyperlipidemia, RLS, hypothyroidism, GERD, allergic rhinitis and vitamin D deficiency he presents to the emergency department as noted above. He reports that his presently is ill with a cough, and is presently taking a Z-Umberto. He denies any other sick exposures other than his . Allergies Allergy/AdvReac Type Severity Reaction Status Date / Time No Known Allergies Allergy Verified 09/23/22 22:43 Home Medications Medication Instructions Recorded Confirmed Type cholecalciferol (vitamin D3) 50 2,000 unit PO QAM 01/20/19 09/23/22 History mcg (2,000 unit) capsule (Vitamin D3) levothyroxine 137 mcg tablet 137 mcg PO QAM 01/20/19 09/23/22 History multivitamin 1 tab PO QAM 01/20/19 09/23/22 History sertraline 100 mg tablet 200 mg PO HS 08/18/19 09/23/22 History azelastine 205.5 mcg (0.15 %) 2 spray intranasal HS 09/26/20 09/23/22 History nasal spray famotidine 40 mg tablet (Pepcid) 40 mg PO HS 08/12/22 09/23/22 History ropinirole 1 mg tablet 1 mg PO HS 08/12/22 09/23/22 History tamsulosin 0.4 mg capsule 0.8 mg PO HS 08/12/22 09/23/22 History salmon oil 1,000 mg-omega-3 fatty 2 cap PO QAM 09/23/22 09/23/22 History acids 210 mg capsule Past Med/Surg History Medical History (Updated 09/24/22 @ 00:41 by Carlitos Nielsen MD) Abnormal gag reflex RESOLVED Anxiety Chronic fatigue unknown cause Chronic sore throat year around -- unknown reason. following with PCP (possibly could be spinal stenosis) Depression GERD (gastroesophageal reflux disease) Hearing deficit History of COVID-19 x2 (October 2020 - treated through the emergency room & spring - asymptomatic) no current problems. History of Mohs micrographic surgery for skin cancer Hx of basal cell carcinoma Hx of squamous cell carcinoma of the skin Hypothyroidism Myasthenia gravis WAS DIAGNOSED INCORRECTLY> DID NOT HAVE THIS Osteoarthritis Pneumothorax partially collapsed right lung -> incidentally found on scans at [facility] and treated with [facility] ~Spring 2020. patient does state he still has sob occasionally, he does monitor his oxygen levels at home and they have been "fine", 94-95% on RA. does not use oxygen. Sleep apnea unable to use cpap machine. Spinal stenosis Weight loss RESOLVED Surgical History History of bilateral cataract extraction History of colonoscopy History of endoscopic sinus surgery x2 History of right inguinal hernia repair History of tonsillectomy and adenoidectomy History of tooth extraction Hx of vasectomy S/P epidural steroid injection LESI Family History Mother Lung cancer Father Stroke Tremor Other No family history of adverse response to anesthesia Social History Smoking Status: Never smoker Second Hand Exposure: No; Hx Alcohol Use: No Hx Substance Use: No Preferred Language: Upper Sorbian Communication Ability: Effective [employer]ment Technician Required: No Beliefs That Will Affect Care: None Current Living Situation: Spouse Feels Safe at Home: Yes Assistive Devices: Cane, Glasses, Hearing Aid - Bilateral and Walker Review of Systems Review of Systems: The patient denies palpitations, lower extremity swelling, fevers, chills, sweats, nausea, vomiting, diarrhea , constipation, abdominal pain, pelvic pain, blood in urine or stool, dysuria, urinary frequency or urgency, lightheadedness, dizziness, headache, memory loss, loss of consciousness, rash, abnormal bruising or bleeding, focal weakness, numbness or tingling in arms or legs, generalized arthralgias or myalgias, change in chronic back, or neck pain, or night sweats. The review of systems is otherwise negative other than for that already noted above, and at least 10 systems have been reviewed. Physical Exam Physical Exam: The patient is awake, alert and oriented 3, well developed and well nourished, normocephalic and atraumatic, lying in bed and in no acute distress. HEENT--PERRL, EOMI, mucous membranes and oropharynx normal. Neck--supple. No JVD. No bruits. Thyroid normal, trachea midline, no adenopathy. Heart--normal S1 and S2. No murmurs, rubs or gallops. Lungs--clear bilaterally, no respiratory distress, no accessory muscle use. Abdomen--normal bowel sounds and soft. Nontender. Nondistended, no hernias or masses, no organomegaly. Extremities--no cyanosis or clubbing. No edema. Dermatologic--normal skin turgor, normal color, no abnormal lymph nodes, no rash. Neurologic--cranial nerves II through XII grossly intact. Rheumatologic--normal range of motion. Psychiatric--normal affect. Results & Data Results & Data ([facility]) Vital Signs (Past 12 Hours) Vital Signs Temp Pulse Pulse Resp BP BP Pulse Ox 09/23/22 22:10 104 H 21 141/80 H 93 09/23/22 20:10 101 H 22 163/75 H 94 09/23/22 20:10 94 09/23/22 20:10 37.1 C 103 H 19 163/75 H 98 O2 Del Method 09/23/22 22:10 09/23/22 20:10 Room Air 09/23/22 20:10 Room Air 09/23/22 20:10 Room Air Laboratory Results Laboratory Results WBC 7.52 K/ul (4.8-10.8) 09/23/22 20: RBC 5.10 M/uL (4.63-6.08) 09/23/22: Hgb 15.8 g/dl (14.0-18.0) 09/23/22: Hct 45.3 % (40.1-51.0) 09/23/22: MCV 88.8 fL (80.0-100.0) 09/23/22: MCH 31.0 pg (25.0-34.0) 09/23/22: MCHC 34.9 g/dL (32.0-36.0) 09/23/22: RDW Std Deviation 43.8 fL (36.4-46.3) 09/23/22: RDW Coeff of Anita 13.3 % (11.5-14.5) 09/23/22: Plt Count 142 K/uL (130-400) 09/23/22: MPV 11.5 fL (9.4-12.4) 09/23/22: Immature Gran % (Auto) 0.1 % 09/23/22: Neut % (Auto) 76.1 % 09/23/22: Lymph % (Auto) 14.2 % 09/23/22: [place] % (Auto) 8.4 % 09/23/22: Eos % (Auto) 0.7 % 09/23/22: Baso % (Auto) 0.5 % 09/23/22: Neut # (Auto) 5.72 K/uL (1.4-6.5) 09/23/22 20: Lymph # (Auto) 1.07 K/uL (1.2-3.4) L 09/23/22 20: [place] # (Auto) 0.63 K/uL (0.24-0.82) 09/23/22 20: Eos # (Auto) 0.05 K/uL (0-0.50) 09/23/22 20: Baso # (Auto) 0.04 K/uL (0-0.2) 09/23/22: Immature Gran # (Auto) 0.01 K/uL (0.00-0.02) 09/23/22 20: Sodium 136 mmol/L (136-145) 09/23/22: Potassium 4.6 mmol/L (3.5-5.1) 09/23/22: Chloride 102 mmol/L (98-107) 09/23/22: Carbon Dioxide 25 mmol/L (21-32) 09/23/22: Anion Gap 9 (3-11) 09/23/22: BUN 14 mg/dl (6-23) 09/23/22: Creatinine 1.11 mg/dl (0.6-1.4) 09/23/22: Est Cr Clr Drug Dosing Not Reportable 09/23/22: Est GFR ( Amer) 70.8 ml/min 09/23/22: Est GFR (Non-Af Amer) 61.1 ml/min 09/23/22: BUN/Creatinine Ratio 12.6 (10-20) 09/23/22: Glucose 85 mg/dl (70-99(Fasting)) 09/23/22: Lactate 0.9 mmol/L (0.4-2.0) 09/23/22 22:34 Calcium 9.7 mg/dl (8.5-10.1) 09/23/22: Magnesium 2.2 mg/dl (1.7-2.4) 09/23/22: Total Bilirubin 0.9 mg/dl (0.2-1.0) 09/23/22 20: AST 21 U/L (13-39) 09/23/22: ALT 17 U/L (7-52) 09/23/22 20:29 Alkaline Phosphatase 78 U/L (34-104) 09/23/22 20: Troponin I High Sens 11.5 pg/ml (0-20) 09/23/22 20: Total Protein 7.9 gm/dl (6.0-8.3) 09/23/22 20: Albumin 4.9 gm/dl (3.4-5.0) 09/23/22: Globulin 3.0 gm/dl (2.5-4.0) 09/23/22 20: Albumin/Globulin Ratio 1.6 (0.9-2) 09/23/22: TSH 4.591 uIu/ml (0.300-4.500) H 09/23/22 20: Urine Color Yellow 09/23/22 21: Urine Appearance Clear (Clear) 09/23/22 21: Urine pH 5.5 (4.5-7.5) 09/23/22 21: Ur Specific [place] 1.016 (1.000-1.030) 09/23/22 21:21 Urine Protein Negative (Negative) 09/23/22 21:21 Urine Glucose (UA) Negative (Negative) 09/23/22 21: Urine Ketones 1+ (Negative) H 09/23/22 21: Urine Blood 1+ (Negative) H 09/23/22 21:21 Urine Nitrite Negative (Negative) 09/23/22 21:21 Urine Bilirubin Negative (Negative) 09/23/22 21:21 Urine Urobilinogen Negative (Negative) 09/23/22 21:21 Ur Leukocyte Esterase Negative (Negative) 09/23/22 21:21 Urine WBC (Auto) 0 /hpf (0-5) 09/23/22 21:21 Urine RBC (Auto) 0-4 /hpf (0-4) 09/23/22 21: U Hyaline Cast (Auto) 1-5 /lpf (0-5) 09/23/22 21:21 U Epithel Cells (Auto) 0-5 /lpf (0-5) 09/23/22 21:21 Urine Bacteria (Auto) Negative (Negative) 09/23/22 21:21 SARS-CoV-2 (PCR) NEGATIVE (Negative) 09/23/22 22:15 Influenza Type A (PCR) Positive (Neg) A* 09/23/22 22:15 Influenza Type B (PCR) Negative (Neg) 09/23/22 22:15 RSV (RT-PCR) Negative (Neg) 09/23/22 22:15 Code Status & VTE Plan Code Status Full code VTE Prophylaxis Plan VTE Prophylaxis will be ordered: Yes
--- NOTE | 2022-09-24 00:42 | Billing Data ---
Date of Service September 24, 2022 Coding Level of Care Code INT OBSERVATION CARE 70M LVL 3
[2022-09-24] MEDS ORDERED: ONDANSETRON INJ 2 MG/ML 2 ML VIAL IV PRN (01:17)
[2022-09-24] MEDS ORDERED: ACETAMINOPHEN 325 MG TAB PO PRN (01:17)
[2022-09-24] MEDS ORDERED: ALUMINUM/MAGNESIUM SUSP 30 ML UDC PO PRN (01:17)
[2022-09-24] MEDS ORDERED: MAGNESIUM HYDROXIDE SUSP 30 ML UDC PO PRN (01:17)
[2022-09-24] MEDS ORDERED: NSS + 20MEQ KCL 20 MEQ/1,000 ML BAG IV SCH (02:00)
[2022-09-24] MEDS: LEVOTHYROXINE SODIUM 137 MCG TABLET PO SCH (05:54)
--- NOTE | 2022-09-24 07:28 | XRay Report ---
XR chest 1V portable CLINICAL HISTORY: weakness TECHNIQUE: Single frontal radiograph of the chest was obtained. Comparison: Comparison is made to chest radiograph 11/24/2020 FINDINGS: No lines and tubes are seen. The cardiomediastinal silhouette is stable. Lungs are underinflated but clear apart from previously noted atelectasis/scarring predominantly in the right lower lung. No evid ence of pleural effusion or pneumothorax. IMPRESSION: No acute abnormalities and in particular no evidence of pneumonia. ACT 112: Negative or not required by law. Electronically signed by: Delmer Koroma M.D. 09/24/2022 7:27 AM
[2022-09-24] MEDS ORDERED: ASTELIN - ORDER AWAITING ACTION SCH (08:00)
--- NOTE | 2022-09-24 08:35 | CT Scan Report ---
CT head/brain wo con CLINICAL HISTORY: falling, weak Technique: Contiguous axial CT images of the head were acquired from the base of the skull to the nabeel naveed without intravenous contrast administration. Images were viewed in brain, subdural and bone [facility]. Automated dose lowering techniques and/or adjustment according to patient size were utilized for this exam. Comparison: Comparison is made to MRI brain 01/01/2021 Findings: Areas of decreased attenuation are present in the periventricular and subcortical white matter bilate rally consistent with small vessel ischemic disease. Generalized cerebral atrophy with commensurate e nlargement of the ventricles, sulci, and cisterns is also present. There is no acute intracranial hem orrhage or evidence of acute territorial infarction. No shift of the midline structures, mass effect, or extra-axial abnormalities are shown. Atherosclerotic calcifications are present in the intracran ial segments of the internal carotid arteries. Imaged portions of the paranasal sinuses and mastoid air cells are clear. The orbits appear normal. There are no acute fractures of the calvaria or scalp swelling. Impression: No acute intracranial hemorrhage, no evidence of acute territorial infarction or other acute intracra nial disease process. ACT 112: Negative or not required by law. Electronically signed by: Delmer Koroma M.D. 09/24/2022 8:34 AM
[2022-09-24] MEDS: MULTIVITAMIN TAB PO SCH (08:47)
[2022-09-24] MEDS: CHOLECALCIFEROL 1,000 UNITS 25 MCG TAB PO SCH (08:47)
[2022-09-24] MEDS ORDERED: OSELTAMIVIR PHOSPHATE SUSP 30 MG/5 ML UDP PO SCH (09:00)
[2022-09-24] MEDS: OSELTAMIVIR PHOSPHATE SUSP 30 MG/5 ML UDP PO SCH ×2 (09:52→20:17)
--- NOTE | 2022-09-24 13:58 | Electrocardiogram Report ---
Test Reason : Blood Pressure : / mmHG Vent. Rate : 101 BPM Atrial Rate : 101 BPM P-R Int : 232 ms QRS Dur : 074 ms QT Int : 316 ms P-R-T Axes : 042 -03 065 degrees QTc Int : 409 ms Poor data quality, interpretation may be adversely affected Sinus tachycardia with 1st degree A-V block Otherwise normal ECG When compared with ECG of 24-NOV-2020 12:32, No significant change was found Confirmed by Earl Nicole ([id number]) on 09/24/2022 1:58:08 PM Referred By: REFERRED SELF Confirmed By:Earl Nicole
--- NOTE | 2022-09-24 14:17 | Hospitalist Progress Note ---
Date of Service September 24, 2022 Assessment & Plan (1) Influenza A: Plan: Day #2 of tamiflu. Plan 5 day course in total. Supportive care - add combivent for cough; add mucinex. Mild rhabdo from the flu infection - cont IV fluids. PT consult due to weakness and unsteady gait. Recheck labs in am. Cont droplet precautions. (2) Vitamin D deficiency: Plan: Continue vitamin D3 2000 international units p.o. every morning (3) Impaired gait: Plan: Impaired gait/idiopathic polyneuropathy/lumbar spinal stenosis- Likely all contributing to problems with generalized weakness and ambulatory dysfunction Consult PT/OT (4) Idiopathic polyneuropathy: (5) Cervical spinal stenosis: (6) Spinal stenosis of lumbar region: Plan: Patient reports his last injection with Dr. 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 at bedtime (12) Restless leg syndrome: Plan: Continue ropinirole 1 mg at bedtime (13) Rhabdomyolysis: Plan: 2nd to flu infection. IV fluids; repeat CPK am. (14) Chest tightness: Plan: 2nd to flu. Pleuritic. Likely has element of bronchial involvement from the flu. Add bronchodilators. Trop is scantly elevated. EKG without ischemic changes. follow carefully. o2 sats wnl at this time. (15) Elevated troponin: Plan: 2nd myocardial demand ischemia in setting of #1 above (16) DVT prophylaxis: Plan: heparin SC Plan daughter updated at bedside cont supportive care Admission and Anticipated Discharge Date Admission Date: September 23, 2022 Subjective patient feels exhausted, fatigued, poor appetite, achy all over. mild cough, nonproductive. mild chest tightness centrally off and on. no vomiting or diarrhea. no chills. feels unsteady on feet. feels a little dizzy as well. recently sick with similar symptoms as well. did have flu shot. Review of Systems Review of Systems: gen - no fevers today pulm - no dyspnea GI - no pain CV - pain is mildly pleuritic Physical Exam Physical Exam: gen - looks sick but nontoxic mouth - MM slightly dry neck - no JVD heart - RRR, s1 s2 lungs - mildly decreased BS expiratory phase but no rales or wheeze abd - soft NT ND BS+ ext - no edema, pulses 2+ b/l neuro - gait - slow musculo - foot deformity on right with walking (significant eversion present) Results & Data Results & Data ([facility]) Vital Signs (Past 12 Hours) Vital Signs Temp Pulse Resp BP Pulse Ox O2 Del Method 09/24/22 07:20 36.6 C 90 18 115/71 94 Room Air 09/24/22 04:20 36.3 C L 96 H 20 141/78 H 93 Room Air Laboratory Results Laboratory Results - last 24 hr 09/24/22 14:38 WBC RBC Hgb Hct MCV MCH MCHC RDW Std Deviation RDW Coeff of Anita Plt Count MPV Sodium 137 Potassium 4.0 Chloride 108 H Carbon Dioxide 24 Anion Gap 5 BUN 19 Creatinine 1.15 Est Cr Clr Drug Dosing 50.3 Est GFR ( Amer) 67.8 Est GFR (Non-Af Amer) 58.5 BUN/Creatinine Ratio 16.5 Glucose 101 H Calcium 8.2 L Total Creatine Kinase 637 H Troponin I High Sens 28.3 H D Diagnostic Findings EKG - NSR, 1st degree AV block, no ST changes (my reading) PG Care Time/CCT Total # of Minutes Spent Total Time Spent with Patient: Total time spent is greater than 50% in coordination of care (as documented) at patient's floor/unit and/or counseling patient: Coding Level of Care Code 10171 Subseq Obs Care Lvl 3 Diagnoses Influenza A J10.1 Vitamin D deficiency E55.9 Impaired gait R26.9 Idiopathic polyneuropathy G60.9 Cervical spinal stenosis M48.02 Spinal stenosis of lumbar region M48.061 Hypothyroidism E03.9 GERD (gastroesophageal reflux disease) K21.9 Anxiety F41.9 Depression F32.9 BPH w urinary obs/LUTS N40.1; N13.8 Restless leg syndrome G25.81 Rhabdomyolysis M62.82 Chest tightness R07.89 Elevated troponin R77.8 DVT prophylaxis Z29.9
[2022-09-24] MEDS: IPRATROPIUM BROMIDE HFA INHALER INH SCH ×2 (15:27→19:04)
[2022-09-24] MEDS: ALBUTEROL HFA 8 GM INHALER INH SCH ×2 (15:27→19:04)
[2022-09-24 15:43] LABS: BUN Creatinine Ratio 16.5 (10-20); Calcium 8.2 mg/dl (8.5-10.1); Creatinine Clr Calc Pharmacy 50.3 ml/min; Est GFR (African American) 67.8 ml/min; Est GFR (Non-African American) 58.5 ml/min; Troponin I High Sensitivity 28.3 pg/ml (0-20)
[2022-09-24] MEDS ORDERED: IPRATROPIUM BROMIDE/ALBUTEROL respimat INH INH SCH (17:00)
[2022-09-24] MEDS: rOPINIRole HCL 1 MG TABLET PO SCH (18:35)
[2022-09-24] MEDS: IBUPROFEN 200 MG TAB PO PRN (20:16)
[2022-09-24] MEDS: FAMOTIDINE 40 MG TABLET PO SCH (20:17)
[2022-09-24] MEDS: SERTRALINE HCL 100 MG TABLET PO SCH (20:17)
[2022-09-24] MEDS: TAMSULOSIN HCL 0.4 MG CAP PO SCH (20:17)
[2022-09-24] MEDS: guaiFENesin 600 MG TABCR PO SCH (20:26)
[2022-09-24] MEDS: AZELASTINE HCL 0.1% NASAL 200 SPRAYS/27,400 MCG BTL NAE SCH (20:26)
[2022-09-24] MEDS: HEPARIN SOD 5,000 UNIT/0.5 ML VIAL SQ SCH (23:01)
[2022-09-25] MEDS: HEPARIN SOD 5,000 UNIT/0.5 ML VIAL SQ SCH ×3 (05:46→22:49)
[2022-09-25] MEDS: LEVOTHYROXINE SODIUM 137 MCG TABLET PO SCH (05:46)
[2022-09-25] MEDS: ALBUTEROL HFA 8 GM INHALER INH SCH ×4 (06:50→19:03)
[2022-09-25] MEDS: IPRATROPIUM BROMIDE HFA INHALER INH SCH ×4 (06:50→19:03)
[2022-09-25 07:30] LABS: BUN Creatinine Ratio 19.2 (10-20); Calcium 8.1 mg/dl (8.5-10.1); Creatinine Clr Calc Pharmacy 55.6 ml/min; Est GFR (African American) 76.6 ml/min; Est GFR (Non-African American) 66.1 ml/min; Potassium 3.9 mmol/L (3.5-5.1)
[2022-09-25 07:31] LABS: Hematocrit (blood only) 36.3 % (40.1-51.0); Hemoglobin 12.3 g/dl (14.0-18.0); Mean Corpuscular Hemoglobin 30.8 pg (25.0-34.0); Mean Corpuscular Hgb Conc 33.9 g/dL (32.0-36.0); Mean Corpuscular Volume 90.8 fL (80.0-100.0); Mean Platelet Volume 10.9 fL (9.4-12.4); Platelet Count 97 K/uL (130-400); RDW Coefficient of Variation 13.8 % (11.5-14.5); RDW Standard Deviation 46.5 fL (36.4-46.3); White Blood Count 4.08 K/ul (4.8-10.8)
[2022-09-25 07:53] LABS: Basophils # (auto) 0.02 K/uL (0-0.2); Basophils % (auto) 0.5 %; Echinocytes 1+; Eosinophils # (auto) 0.11 K/uL (0-0.50); Eosinophils % (auto) 2.7 %; Lymphocytes % (auto) 39.2 %; Monocytes # (auto) 0.65 K/uL (0.24-0.82); Monocytes % (auto) 15.9 %; Neutrophils % (auto) 41.7 %
[2022-09-25] MEDS: MULTIVITAMIN TAB PO SCH (08:12)
[2022-09-25] MEDS: OSELTAMIVIR PHOSPHATE SUSP 30 MG/5 ML UDP PO SCH ×2 (08:12→20:22)
[2022-09-25] MEDS: guaiFENesin 600 MG TABCR PO SCH ×2 (08:12→20:15)
[2022-09-25] MEDS: CHOLECALCIFEROL 1,000 UNITS 25 MCG TAB PO SCH (08:12)
--- NOTE | 2022-09-25 16:38 | Electrocardiogram Report ---
Test Reason : Blood Pressure : / mmHG Vent. Rate : 067 BPM Atrial Rate : 067 BPM P-R Int : 262 ms QRS Dur : 070 ms QT Int : 388 ms P-R-T Axes : 046 -17 069 degrees QTc Int : 409 ms Sinus rhythm with sinus arrhythmia with 1st degree A-V block Otherwise normal ECG When compared with ECG of 23-SEP-2022 20:26, Vent. rate has decreased BY 34 BPM Confirmed by Earl Nicole ([id number]) on 09/25/2022 4:38:46 PM Referred By: REFERRED SELF Confirmed By:Earl Nicole
[2022-09-25] MEDS: rOPINIRole HCL 1 MG TABLET PO SCH (18:13)
[2022-09-25] MEDS: IBUPROFEN 200 MG TAB PO PRN (18:15)
--- NOTE | 2022-09-25 18:53 | XRay Report ---
XR chest 2V PA/lateral CLINICAL HISTORY: fluA; b/l basilar rales COMPARISON STUDY: Chest CT November 24, 2020. Chest radiograph September 23, 2022. FINDINGS: Lung volumes are normal. No pneumothorax or pleural effusion is present. Cardiomediastinal silhouette is stable. No evidence for pulmonary edema. Apparent lower lung opacity on lateral project ion is probably artifactual. There is mild right lower lung opacity which favors atelectasis. IMPRESSION: Mild lower lung opacities which favor atelectasis. An infectious process would be diffic ult to completely exclude. ACT 112: Negative or not required by law. Electronically signed by: Vincent Joya M.D. 09/25/2022 6:51 PM
--- NOTE | 2022-09-25 19:06 | Hospitalist Progress Note ---
Date of Service September 25, 2022 Assessment & Plan (1) Influenza A: Plan: Day #3 of tamiflu. Plan 5 day course in total. Clinically improved. Mild rales on bases - cxr obtained -- minimal infiltrates. This certainly could be mild pneumonia from the flu itself. No evidence of bacterial superinfection at this time. O2 sats wnl as well. Cont supportive care - combivent for cough; mucinex. Mild rhabdo from the flu infection - improved today; ok to d/c fluids. PT consult appreciated - should be able to return home tomorrow. Recheck labs in am. Cont droplet precautions. (2) Vitamin D deficiency: Plan: Continue vitamin D3 2000 international units p.o. every morning (3) Impaired gait: Plan: Impaired gait/idiopathic polyneuropathy/lumbar spinal stenosis- Likely all contributing to problems with generalized weakness and ambulatory dysfunction Influenza will make this worse as well PT/OT (4) Idiopathic polyneuropathy: (5) Cervical spinal stenosis: (6) Spinal stenosis of lumbar region: Plan: Patient reports his last injection with Dr. 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 at bedtime (12) Restless leg syndrome: Plan: Continue ropinirole 1 mg at bedtime (13) Rhabdomyolysis: Plan: 2nd to flu infection. Very mild - CPK improved today s/p IV fluids. ok to d/c fluids. (14) Chest tightness: Plan: 2nd to flu. Pleuritic. Likely has element of bronchial involvement from the flu. Added bronchodilators and these helped. Trop is scantly elevated. EKG without ischemic changes. follow carefully. o2 sats wnl at this time. (15) Elevated troponin: Plan: 2nd myocardial demand ischemia in setting of #1 above (16) DVT prophylaxis: Plan: heparin SC (17) Pancytopenia: Plan: 2nd to flu - repeat CBC am Plan daughter updated at bedside yesterday updated at bedside today cont supportive care change obs to full admit status home tomorrow? 2 days? Admission and Anticipated Discharge Date Admission Date: September 25, 2022 Subjective patient feeling better today although still very achy and still quite tired/fatigued he worked with PT and did feel more steady & stronger on feet but not back to baseline appetite is better today inhaler is helping his cough and chest symptoms no sputum no headache at bedside -- she recently had the flu as well Review of Systems Review of Systems: gen - no fevers or chills; still with fatigue cv - no further chest tightness pulm - no dyspnea or WARNER GI - no nausea/emesis; no pain Physical Exam Physical Exam: gen - looks better today, more animated than yesterday mouth - MMM neck - no JVD heart - RRR, s1 s2 lungs - mild dry rales bases, otherwise CTA b/l; airation improved today abd - soft NT ND BS+ ext - no edema, pulses 2+ b/l Results & Data Results & Data ([facility]) Vital Signs (Past 12 Hours) Vital Signs Temp Pulse Resp BP Pulse Ox O2 Del Method 09/25/22 19:04 64 18 95 Room Air 09/25/22 15:08 67 16 95 Room Air 09/25/22 14:21 36.2 C L 67 16 131/71 96 Room Air 09/25/22 11:03 64 16 96 Room Air 09/25/22 07:51 Room Air, Nasal Cannula 09/25/22 07:50 36.2 C L 65 16 113/70 94 Room Air Laboratory Results Laboratory Results - last 24 hr 09/25/22 09/25/22 09/25/22 05:51 05:51 08:00 WBC 4.08 L RBC 4.00 L Hgb 12.3 L D Hct 36.3 L MCV 90.8 MCH 30.8 MCHC 33.9 RDW Std Deviation 46.5 H RDW Coeff of Anita 13.8 Plt Count 97 L MPV 10.9 Immature Gran % (Auto) 0.0 Neut % (Auto) 41.7 Lymph % (Auto) 39.2 [place] % (Auto) 15.9 Eos % (Auto) 2.7 Baso % (Auto) 0.5 Neut # (Auto) 1.70 Lymph # (Auto) 1.60 [place] # (Auto) 0.65 Eos # (Auto) 0.11 Baso # (Auto) 0.02 Immature Gran # (Auto) 0.00 Echinocytes 1+ Sodium 138 Potassium 3.9 Chloride 108 H Carbon Dioxide 23 Anion Gap 7 BUN 20 Creatinine 1.04 Est Cr Clr Drug Dosing 55.6 Est GFR ( Amer) 76.6 Est GFR (Non-Af Amer) 66.1 BUN/Creatinine Ratio 19.2 Glucose 77 POC Glucose 75 Calcium 8.1 L Total Creatine Kinase 576 H Diagnostic Findings Chest X-Ray 09/25/22 14:05 XR chest 2V PA/lateral CLINICAL HISTORY: fluA; b/l basilar rales COMPARISON STUDY: Chest CT November 24, 2020. Chest radiograph September 23, 2022. FINDINGS: Lung volumes are normal. No pneumothorax or pleural effusion is present. Cardiomediastinal silhouette is stable. No evidence for pulmonary edema. Apparent lower lung opacity on lateral projection is probably artifactual. There is mild right lower lung opacity which favors atelectasis. IMPRESSION: Mild lower lung opacities which favor atelectasis. An infectious process would be difficult to completely exclude. ACT 112: Negative or not required by law. Electronically signed by: Vincent Joya M.D. 09/25/2022 6:51 PM PG Care Time/CCT Total # of Minutes Spent Total Time Spent with Patient: Total time spent is greater than 50% in coordination of care (as documented) at patient's floor/unit and/or counseling patient: Coding Level of Care Code 79775 Subseq Hosp Care Lvl 2 Diagnoses Influenza A J10.1 Vitamin D deficiency E55.9 Impaired gait R26.9 Idiopathic polyneuropathy G60.9 Cervical spinal stenosis M48.02 Spinal stenosis of lumbar region M48.061 Hypothyroidism E03.9 GERD (gastroesophageal reflux disease) K21.9 Anxiety F41.9 Depression F32.9 BPH w urinary obs/LUTS N40.1; N13.8 Restless leg syndrome G25.81 Rhabdomyolysis M62.82 Chest tightness R07.89 Elevated troponin R77.8 DVT prophylaxis Z29.9 Pancytopenia D61.818
[2022-09-25] MEDS: AZELASTINE HCL 0.1% NASAL 200 SPRAYS/27,400 MCG BTL NAE SCH (20:14)
[2022-09-25] MEDS: FAMOTIDINE 40 MG TABLET PO SCH (20:15)
[2022-09-25] MEDS: SERTRALINE HCL 100 MG TABLET PO SCH (20:15)
[2022-09-25] MEDS: TAMSULOSIN HCL 0.4 MG CAP PO SCH (20:15)
[2022-09-26] MEDS: LEVOTHYROXINE SODIUM 137 MCG TABLET PO SCH (06:20)
[2022-09-26] MEDS: HEPARIN SOD 5,000 UNIT/0.5 ML VIAL SQ SCH (06:20)
[2022-09-26] MEDS: IPRATROPIUM BROMIDE HFA INHALER INH SCH ×2 (06:21→11:33)
[2022-09-26] MEDS: ALBUTEROL HFA 8 GM INHALER INH SCH ×2 (06:22→11:34)
[2022-09-26 06:57] LABS: Hemoglobin 12.9 g/dl (14.0-18.0); Mean Corpuscular Hemoglobin 30.7 pg (25.0-34.0); Mean Corpuscular Hgb Conc 33.9 g/dL (32.0-36.0); Mean Corpuscular Volume 90.5 fL (80.0-100.0); Platelet Count 107 K/uL (130-400); RDW Coefficient of Variation 13.7 % (11.5-14.5); RDW Standard Deviation 45.4 fL (36.4-46.3); White Blood Count 3.36 K/ul (4.8-10.8)
[2022-09-26 07:27] LABS: Basophils # (auto) 0.03 K/uL (0-0.2); Basophils % (auto) 0.9 %; Echinocytes 1+; Eosinophils # (auto) 0.18 K/uL (0-0.50); Eosinophils % (auto) 5.4 %; Immature Granulocytes # (auto) 0.01 K/uL (0.00-0.02); Immature Granulocytes % (auto) 0.3 %; Lymphocytes # (auto) 1.57 K/uL (1.2-3.4); Lymphocytes % (auto) 46.7 %; Monocytes # (auto) 0.31 K/uL (0.24-0.82); Monocytes % (auto) 9.2 %; Neutrophils # (auto) 1.26 K/uL (1.4-6.5); Neutrophils % (auto) 37.5 %
[2022-09-26] MEDS: CHOLECALCIFEROL 1,000 UNITS 25 MCG TAB PO SCH (07:36)
[2022-09-26] MEDS: guaiFENesin 600 MG TABCR PO SCH (07:37)
[2022-09-26] MEDS: MULTIVITAMIN TAB PO SCH (07:37)
[2022-09-26] MEDS: OSELTAMIVIR PHOSPHATE SUSP 30 MG/5 ML UDP PO SCH (08:45)
--- NOTE | 2022-09-26 11:39 | Discharge Summary ---
Date of Service date of admission - September 23, 2022 date of discharge - September 26, 2022 Admission HPI Per Admitting Provider The patient is an 81-year-old male with past medical history including BPH with LUTS, depression, hyperlipidemia, RLS, hypothyroidism, GERD, allergic rhinitis and vitamin D deficiency who presents to the emergency department with 2 days of generalized weakness, nasal congestion, myalgias, cough, and a burning in his chest. He also reports having fallen 1 time yesterday and 3 times on day of presentation. After his final fall he was unable to get up off the floor and thus had to call EMS. He reports that his is presently ill with a cough. He denies any other sick exposures other than his . Principal Diagnosis Influenza A infection Mild rhabdomyolysis 2nd to flu A infection Mild pancytopenia likely 2nd to flu A infection Discharge Exam gen - looks much better than previous exams, NAD mouth - MMM neck - no JVD heart - RRR, s1 s2 lungs - minimal dry rales bases, otherwise CTA b/l; airation normal abd - soft NT ND BS+ ext - no edema, pulses 2+ b/l psych - a/o x 3 musculo - foot deformity right foot when he walks Discharge Data Allergies Allergy/AdvReac Type Severity Reaction Status Date / Time No Known Allergies Allergy Verified 09/23/22 22:43 Consultations Physical Therapy Ordered Studies Chest X-Ray 09/23/22 22:08 XR chest 1V portable CLINICAL HISTORY: weakness TECHNIQUE: Single frontal radiograph of the chest was obtained. Comparison: Comparison is made to chest radiograph 11/24/2020 FINDINGS: No lines and tubes are seen. The cardiomediastinal silhouette is stable. Lungs are underinflated but clear apart from previously noted atelectasis/scarring predominantly in the right lower lung. No evidence of pleural effusion or pneumothorax. IMPRESSION: No acute abnormalities and in particular no evidence of pneumonia. ACT 112: Negative or not required by law. Electronically signed by: Delmer Koroma M.D. 09/24/2022 7:[address] 09/23/22 22:09 CT head/brain wo con CLINICAL HISTORY: falling, weak Technique: Contiguous axial CT images of the head were acquired from the base of the skull to the vertex without intravenous contrast administration. Images were viewed in brain, subdural and bone windows. Automated dose lowering techniques and/or adjustment according to patient size were utilized for this exam. Comparison: Comparison is made to MRI brain 01/01/2021 Findings: Areas of decreased attenuation are present in the periventricular and subcortical white matter bilaterally consistent with small vessel ischemic disease. Generalized cerebral atrophy with commensurate enlargement of the ventricles, sulci, and cisterns is also present. There is no acute intracranial hemorrhage or evidence of acute territorial infarction. No shift of the midline structures, mass effect, or extra-axial abnormalities are shown. Atherosclerotic calcifications are present in the intracranial segments of the internal carotid arteries. Imaged portions of the paranasal sinuses and mastoid air cells are clear. The orbits appear normal. There are no acute fractures of the calvaria or scalp swelling. Impression: No acute intracranial hemorrhage, no evidence of acute territorial infarction or other acute intracranial disease process. ACT 112: Negative or not required by law. Electronically signed by: Delmer Koroma M.D. 09/24/2022 8:34 AM Chest X-Ray 09/25/22 14:05 XR chest 2V PA/lateral CLINICAL HISTORY: fluA; b/l basilar rales COMPARISON STUDY: Chest CT November 24, 2020. Chest radiograph September 23, 2022. FINDINGS: Lung volumes are normal. No pneumothorax or pleural effusion is presen t. Cardiomediastinal silhouette is stable. No evidence for pulmonary edema. Apparent lower lung opacity on lateral projection is probably artifactual. There is mild right lower lung opacity which favors atelectasis. IMPRESSION: Mild lower lung opacities which favor atelectasis. An infectious process would be difficult to completely exclude. ACT 112: Negative or not required by law. Electronically signed by: Vincent Joya M.D. 09/25/2022 6:51 PM Hospital Course (1) Influenza A: The patient received Tamiflu therapy and supportive care for his FluA infection. O2 sats remained stable the entire stay. He had mild rhabdomyolysis from his FluA infection and received IV fluids for such. PT was consulted, and he was cleared to return home with his at discharge. He will complete 2 more days of Tamiflu at home for a total of 5 days of Rx. He was given bronchodilators to use at home for his cough. WBC count, hemoglobin, and platelet count were all mildly low while here likely due to viral suppression from his FluA infection. He will need a repeat CBC with diff at time of hospital follow-up to ensure norm alization. (2) Rhabdomyolysis: 2nd to flu infection. Very mild - peak CPK was 637. Received IV fluids for such. (3) Pancytopenia: 2nd to Influenza infection. Repeat cbc at time of hospital follow-up advised to ensure normalization. (4) Chest tightness: 2nd to Influenza infection. Pleuritic in quality. Likely had element of bronchial involvement from the Flu as well. Added bronchodilators and these helped. Troponin was scantly elevated. EKG without ischemic changes. O2 sats were normal the entire stay. (5) Elevated troponin: 2nd myocardial demand ischemia in setting of #1 above (6) Impaired gait: 2nd to idiopathic polyneuropathy and lumbar spinal stenosis. While sick with influenza his gait was transiently worse. As he recovered his weakness and gait improved. He was seen by PT and cleared for home with his . (7) Vitamin D deficiency: Continue vitamin D3 2000 international units p.o. every morning (8) Idiopathic polyneuropathy: (9) Cervical spinal stenosis: (10) Spinal stenosis of lumbar region: Patient reports his last injection with Dr. Ronen Mcmahon was about 1 month ago. (11) Hypothyroidism: Continue levothyroxine 137 mcg every morning TSH mildly high at 4.5. simply repeat in 1 month as outpatient. (12) GERD (gastroesophageal reflux disease): Continue famotidine 40 mg at bedtime (13) Anxiety: Anxiety with depression- Continue sertraline 200 mg at bedtime (14) Depression: (15) BPH w urinary obs/LUTS: Continue tamsulosin 0.8 mg p.o. at bedtime No issues while here (16) Restless leg syndrome: Continue ropinirole 1 mg at bedtime Total Time Total Time Spent Total Time Spent (In Minutes): 40 Discharge Plan Discharge Items Patient Disposition: Home - Self-Care Reason For Visit: INFLUENZA A, WEAKNESS, FALLS Discharge Diagnosis: 1. influenza A infection - improving 2. weakness, falls - due to influenza 3. low white blood cell count, mildly low platelets - due to influenza infection - repeat CBC needed at time of hospital follow-up 4. neuropathy, chronic Condition on Discharge: Fair Activity: As commented below Activity Comment: light activity as you recover then gradually increase activity next 7 days Non-emergency contact: Primary Care Provider Call non-emergency contact if: you have any medication questions and your symptoms worsen Follow-up/Referrals: Sung Brown MD [Primary Care Provider] - 10/02/22 1:10 pm (APPT WITH DR LEES) Diet: Regular Addtl Attending Provider Instructions: Mr Peguero, You were hospitalized at [facility] due to weakness from influenza A infection ("the flu"). You received Tamiflu (oseltamivir) anti-viral medication for your influenza. This medication will shorten the course of your illness by about 1-2 days. You gradually improved with IV fluids, Tamiflu, and supportive care. You were seen by physical therapy and you were cleared to return home with your . They are recommending that you use your walker at home diligently, es pecially while you are recovering from your illness. Several lab tests were mildly abnormal due to your influenza infection which is quite common. Your white blood cells and platelets were mildly low. You will need a repeat CBC blood count at time of follow-up with your family doctor. The blood counts will normalize as you recover from the illness. You likely have another few days of recovery at home. During this time please drink plenty of fluids, focus on good nutrition, and treat your symptoms as needed (see below). You likely are contagious to others for another 2-3 days. If you have visitors to your home or you leave your house to go to the pharmacy, etc, please wear a mask. Recommendations - 1. Tamiflu (oseltamivir) medication - 5ml twice daily x 4 doses (2 days). Take your first dose TONIGHT. This is for the influenza. 2. May use albuterol via spacer device - 2 puffs every 6 hours as needed for cough/congestion/wheezing/shortness of breath. 3. May use [id number] mucinex up to 1200mg twice daily as needed/as desired for cough. 4. May use [id number] tylenol and/or ibuprofen as needed for headache, fever over 100 degrees, body aches, etc. Tylenol dosing -- 1000mg every 6 hours as needed, up to 3000mg/ in 24 hours maximum. Ibuprofen dosing -- 400mg every 8 hours as needed; take with food. 5. Please use your incentive spirometer device for another few days at home. This will help speed up resolution of your cough and help you recover faster. Follow-up - see separate section Return to [facility] if - * you have worsening shortness of breath * you have chest pains * you have recurrent, persistent fevers over 100 degrees (you could potentially have a low-grade fever in the next 1-2 days from the flu but high temperatures would be concerning) * you are dizzy or lightheaded or have difficulty walking * any other concerns It was our pleasure to care for you at [facility]! Please continue to feel better, Dr Smith Pending Studies at Discharge: No Stand-Alone Forms: My [facility], Smoking Cessation Medications and DC Order Prescriptions: New albuterol sulfate [Ventolin HFA] 90 mcg/actuation Hfa Aerosol Inhaler 2 puff inhalation Q6H PRN (Reason: cough, wheeze, shortness of breath) Qty: 1 0RF Rx Instructions: use with plastic spacer device provided by [facility] Continued sertraline 100 mg tablet 200 mg PO HS azelastine 0.15 % (205.5 mcg) spray,non-aerosol 2 spray intranasal HS Rx Instructions: administer into each nostril multivitamin Tablet 1 tab PO QAM levothyroxine 137 mcg Tablet 137 mcg PO QAM cholecalciferol (vitamin D3) [Vitamin D3] 2,000 unit Capsule 2,000 unit PO QAM ropinirole 1 mg Tablet 1 mg PO HS Rx Instructions: administer 1-3 hours before bedtime tamsulosin 0.4 mg Capsule 0.8 mg PO HS famotidine [Pepcid] 40 mg Tablet 40 mg PO HS salmon oil-omega-3 fatty acids 1,000-210 mg Capsule 2 cap PO QAM Discharge Orders: Discharge Order (Routine); Ordered 09/26/22 Ordered By: Ede Timmons/Other Patient Handouts: Using an Inhaler with a Spacer, The Flu (Influenza), ED Influenza (Adult) Admission Data Admit Date/Time: 09/23/22 23:32 Attending Provider: Ede Smith Admit Provider: Carlitos Nielsen Primary Care Provider: Sung Brown Other Providers: Carlitos Nielsen ; [facility] Other Interventions: Discharge Summary Assessment (RN) Last Done: 09/26/22 11:31 Coding Level of Care Code D/C DAY MANAGEMENT >30 MINS Diagnoses Influenza A J10.1 Rhabdomyolysis M62.82 Pancytopenia D61.818 Chest tightness R07.89 Elevated troponin R77.8 Impaired gait R26.9 Vitamin D deficiency E55.9 Idiopathic polyneuropathy G60.9 Cervical spinal stenosis M48.02 Spinal stenosis of lumbar region M48.061 Hypothyroidism E03.9 GERD (gastroesophageal reflux disease) K21.9 Anxiety F41.9 Depression F32.9 BPH w urinary obs/LUTS N40.1; N13.8 Restless leg syndrome G25.81
== END 2022-09-26 13:20 | disposition home or self-care (01) ==
LOC: 3E 20:19 → ED 20:19 → SUATTDRO 23:32 → 3E 09-24 00:24
DX: G60.9 Hereditary and idiopathic neuropathy, unspecified; G25.81 Restless legs syndrome; D61.818 Other pancytopenia; M48.02 Spinal stenosis, cervical region; Z86.16 Personal history of COVID-19; J10.1 Influenza due to other identified influenza virus with other respiratory manifestations; F41.9 Anxiety disorder, unspecified; F32.A Depression, unspecified; M62.82 Rhabdomyolysis; M48.061 Spinal stenosis, lumbar region without neurogenic claudication; Z79.899 Other long term (current) drug therapy; Z79.890 Hormone replacement therapy; E03.9 Hypothyroidism, unspecified; E55.9 Vitamin D deficiency, unspecified; R79.89 Other specified abnormal findings of blood chemistry

== ENCOUNTER 2023-11-22 09:00 | Observation (INO) ==
--- NOTE | 2023-11-22 09:04 | Emergency Department Note ---
Impression & Plan COVID-19, Shortness of breath, Generalized weakness ED Provider Note NAME: KIARA COTA AGE: 82 SEX: M ARRIVES VIA: Ambulance INFORMANT: Patient ED PROVIDER(S): Ko Lee MD CHIEF COMPLAINT: Sore throat, congestion, generalized weakness. COVID-19 exposure. PLAN: Disposition: Admit MEDICAL DECISION MAKING: The patient is an 82-year-old gentleman with a past medical history of acid reflux, hypothyroidism who presents to the emergency department via EMS for evaluation of sore throat with mild congestion, shortness of breath, body aches, feverishness that began last night and progressed into this morning. The patient symptoms occur in the setting of his developing similar symptoms over this week where she was diagnosed with COVID-19. Patient reports that he has felt generalized weakness where he feels to weak to walk and so this is why EMS was called. He denies any episodes of syncope near headache. He denies nausea or vomiting. Patient ports he is not vaccinated for COVID-19. He is vaccinated for influenza. On my evaluation the patient is ill appearing but in no acute distress, afebrile with HR in the 100s and otherwise stable vital signs with O2 saturation 97% on room air with normal respiratory effort. Lungs with scant intermittent wheeze and otherwise clear to auscultation. EKG with suspected sinus rhythm with first-degree AV block and premature supraventricular complexes versus atrial ectopic rhythm and otherwise without overt acute ischemia. WBC, H/H and platelets within normal limits. Chemistry without metabolic acidosis. BUNs/creatinine 24, consistent with patient's clinically dry appearance. Electrolytes and LFTs unremarkable. High-sensitivity troponin within normal limits. CPK within normal limits. Lipase is not elevated. Upon evaluation the patient did feel somewhat improved after initial treatment with IV fluid hydration, APAP, albuterol MDI, guaifenesin and nasal saline. He still did exhibit generalized weakness where he did require 1 person assist though eventually did ambulate without assistance but still significantly weak. We did discuss option for admission given his continued weakness and severity of his initial presentation in the setting of severe winter weather arriving. Ultimately we did agree to proceed with admission at this time for continued supportive care and possible PT OT evaluation. Case was discussed with Leo Hu [facility] PAC, with Dr. Foster, [facility] hospitalist who will evaluate the patient for admission. Triage Nursing notes reviewed and agree them. Prior/external medical records reviewed Vital Signs: reviewed Differential diagnosis: Reactive airway disease, pneumonia, pneumothorax, COPD, CHF, infections, cardiac ischemia, pulmonary embolism, musculoskeletal, gastrointestinal, as well as other pathologies. ER treatment provided: See below. Diagnostics interpreted by me: EC bpm, Sinus rhythm with first-degree AV block and premature supraventricular complexes versus atrial ectopic rhythm, no overt ST elevation or depression, QTc 413, QRS 60. Cardiac Monitoring: An order for continuous cardiac monitoring was placed and demonstrated 91 bpm, Sinus rhythm with first-degree AV block and premature supraventricular complexes versus atrial ectopic rhythm Laboratory studies: See below Imaging studies: See below Consultations: Case was discussed with Leo Hu, [facility], with Dr. Foster, [facility] hospitalist who will evaluate the patient for admission. HPI: The patient is an 82-year-old gentleman with a past medical history of acid reflux, hypothyroidism who presents to the emergency department via EMS for evaluation of sore throat with mild congestion, shortness of breath, body aches, feverishness that began last night and progressed into this morning. The patient symptoms occur in the setting of his developing similar symptoms over this week where she was diagnosed with COVID-19. Patient reports that he has felt generalized weakness where he feels to weak to walk and so this is why EMS was called. He denies any episodes of syncope near headache. He denies nausea or vomiting. Patient ports he is not vaccinated for COVID-19. He is vaccinated for influenza. ROS: See above HPI for pertinent positives & negatives. A total of 10 systems reviewed and were otherwise negative. VITALS:See Below PHYSICAL EXAMINATION: GENERAL: Awake, alert, fatigued-appearing, in no distress HENT: Normocephalic, atraumatic. Boggy nasal turbinates. Oropharynx with dry mucous membranes and otherwise unremarkable. EYES: Normal conjunctiva. Sclera non-icteric. NECK: Supple. No nuchal rigidity. FROM. No JVD. RESPIRATORY: Scant intermittent wheeze and otherwise clear to auscultation. CARDIAC: Tachycardic rate, normal rhythm. Extremities warm and well perfused. Pulses equal. ABDOMEN: Soft, non-distended. No tenderness to palpation. No rebound or guarding. No masses. RECTAL: Deferred. MUSCULOSKELETAL: Chest examination reveals no tenderness. The back is symmetrical on inspection without obvious abnormality. There is no CVA tenderness to palpation. No joint edema. LOWER EXTREMITIES: Calves are equal size bilaterally and non-tender. No edema. No discoloration. NEURO: No focal sensory or motor deficits noted. Generalized weakness x 4 ext. SKIN: No rash or jaundice noted. Ko Lee MD Past Med/Surg History Medical History Chronic back pain Pancytopenia Rhabdomyolysis 09/2022?? patient unsure, but was treated at [facility] inpatient for Influenza A. Restless leg syndrome BPH w urinary obs/LUTS GERD (gastroesophageal reflux disease) History of Mohs micrographic surgery for skin cancer Hx of squamous cell carcinoma of the skin Hx of basal cell carcinoma Pneumothorax partially collapsed right lung -> incidentally found on scans at [facility] and treated with [facility] ~Spring 2020. patient does state he still has sob occasionally, he does monitor his oxygen levels at home and they have been "fine", 94-95% on RA. does not use oxygen. Chronic fatigue unknown cause History of COVID-19 x2 (October 2020 - treated through the emergency room & spring - asymptomatic) no current problems. Chronic sore throat year around -- unknown reason. following with PCP (possibly could be spinal stenosis) Cervical spinal stenosis Idiopathic polyneuropathy Spinal stenosis of lumbar region Impaired gait Vitamin D deficiency Osteoarthritis Spinal stenosis Abnormal gag reflex RESOLVED Weight loss RESOLVED Hypothyroidism Hearing deficit Depression Anxiety Myasthenia gravis WAS DIAGNOSED INCORRECTLY> DID NOT HAVE THIS Sleep apnea unable to use cpap machine. 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 Beliefs That Will Affect Care: None Current Living Situation: Spouse Feels Safe at Home: Yes Assistive Devices: Cane, Glasses, Hearing Aid - Bilateral and Walker Allergies Allergies Allergy/AdvReac Type Severity Reaction Status Date / Time No Known Allergies Allergy Verified 11/25/22 13:25 Home Meds Home Medications Medication Instructions Recorded Confirmed cholecalciferol (vitamin D3) 50 2,000 unit PO QAM 01/20/19 11/25/22 mcg (2,000 unit) capsule (Vitamin D3) levothyroxine 137 mcg tablet 137 mcg PO QAM 01/20/19 11/22/23 multivitamin 1 tab PO QAM 01/20/19 11/25/22 azelastine 205.5 mcg (0.15 %) 1 spray intranasal HS 09/26/20 11/22/23 nasal spray famotidine 40 mg tablet (Pepcid) 40 mg PO HS 08/12/22 11/22/23 salmon oil 1,000 mg-omega-3 fatty 2 cap PO QAM 09/23/22 11/25/22 acids 210 mg capsule diphenhydramine HCl 25 mg tablet 25 mg PO HS PRN allergies 11/19/22 11/25/22 duloxetine 20 mg capsule,delayed 60 mg PO HS 11/19/22 11/22/23 release doxazosin 1 mg tablet 1 mg PO DAILY 11/22/23 11/22/23 gabapentin 300 mg capsule 300 mg PO TID 11/22/23 11/22/23 prednisone 10 mg tablet 10 mg PO UD 11/22/23 11/22/23 Previous Rx's Medication Instructions Recorded albuterol sulfate 90 mcg/actuation 2 puff inhalation Q6H PRN cough, 09/26/22 aerosol inhaler (Ventolin HFA) wheeze, shortness of breath #1 inhaler meclizine 12.5 mg tablet 12.5 mg PO TID PRN dizziness #20 05/23/23 tabs Results & Data (ED) Vital Signs Vital Signs - 24 hr 11/22/23 09:10 11/22/23 09:11 11/22/23 09:19 Temperature 36.6 C Temperature Source Oral Pulse Rate 97 H 95 H Pulse Rate from SpO2 Sensor Respiratory Rate 18 Respiratory Effort / Characteristics Non-Labored Spontaneous Respiratory Depth Normal Respiratory Pattern Regular Blood Pressure 155/94 H Blood Pressure Mean 114 Blood Pressure Position Sitting Pulse Oximetry 97 97 Oxygen Delivery Method Room Air Room Air Sepsis Recent Fever Within 48 Hours No Sepsis New/Unexplained Change in Mental Status N/A Sepsis Action Taken by Nursing No Action Required 11/22/23 11:33 11/22/23 12:00 11/22/23 13:00 Temperature Temperature Source Pulse Rate 85 102 H 98 H Pulse Rate from SpO2 Sensor 85 102 H 104 H Respiratory Rate 19 30 H 30 H Respiratory Effort / Characteristics Respiratory Depth Respiratory Pattern Blood Pressure 135/77 Blood Pressure Mean 96 Blood Pressure Position Pulse Oximetry 98 94 95 Oxygen Delivery Method Sepsis Recent Fever Within 48 Hours Sepsis New/Unexplained Change in Mental Status Sepsis Action Taken by Nursing 11/22/23 13:13 11/22/23 14:36 11/22/23 15:00 Temperature Temperature Source Pulse Rate 107 H 91 H Pulse Rate from SpO2 Sensor Respiratory Rate 30 H Respiratory Effort / Characteristics Respiratory Depth Respiratory Pattern Blood Pressure 143/103 H Blood Pressure Mean 116 Blood Pressure Position Pulse Oximetry Oxygen Delivery Method Sepsis Recent Fever Within 48 Hours Sepsis New/Unexplained Change in Mental Status Sepsis Action Taken by Nursing Laboratory Data Attestation: I reviewed the patient's lab results. 11/22/23 09:21 11/22/23 09:21 Lab Results 11/22/23 Range/Units 09:21 WBC 9.80 (4.8-10.8) K/ul RBC 5.26 (4.70-6.10) M/uL Hgb 15.9 (14.0-18.0) g/dl Hct 47.3 (42.0-52.0) % MCV 89.9 (80.0-100.0) fL MCH 30.2 (25.0-34.0) pg MCHC 33.6 (32.0-36.0) g/dL RDW Std Deviation 42.5 (36.4-46.3) fL RDW Coeff of Anita 12.9 (11.5-14.5) % Plt Count 169 (130-400) K/uL MPV 11.0 (9.4-12.4) fL Immature Gran % (Auto) 0.4 % Neut % (Auto) 75.6 % Lymph % (Auto) 17.3 % [place] % (Auto) 5.9 % Eos % (Auto) 0.4 % Baso % (Auto) 0.4 % Neut # (Auto) 7.40 H (1.40-6.50) K/uL Lymph # (Auto) 1.70 (1.20-3.40) K/uL [place] # (Auto) 0.58 (0.11-0.59) K/uL Eos # (Auto) 0.04 (0.00-0.50) K/uL Baso # (Auto) 0.04 (0.00-0.20) K/uL Immature Gran # (Auto) 0.04 (0.01-0.20) K/uL PT 11.0 (9.0-12.0) Seconds INR 1.0 (0.9-1.1) Sodium 139 (136-145) mmol/L Potassium 4.5 (3.5-5.1) mmol/L Chloride 105 (98-107) mmol/L Carbon Dioxide 28 (21-32) mmol/L Anion Gap 6 (3-11) BUN 27 H (6-23) mg/dl Creatinine 1.10 (0.6-1.4) mg/dl Est Cr Clr Drug Dosing Not Reportable Est GFR ( Amer) 71.1 ml/min Est GFR (Non-Af Amer) 61.3 ml/min BUN/Creatinine Ratio 24.5 H (10-20) Glucose 91 (70-99(Fasting)) mg/dl Calcium 9.2 (8.6-10.3) mg/dl Phosphorus 2.5 (2.5-4.9) mg/dl Magnesium 2.0 (1.7-2.4) mg/dl Total Bilirubin 1.0 (0.2-1.0) mg/dl AST 17 (13-39) U/L ALT 14 (7-52) U/L Alkaline Phosphatase 74 (34-104) U/L Total Creatine Kinase 92 (30-223) U/L Troponin I High Sens 13.6 (0-20) pg/ml Total Protein 7.3 (6.0-8.3) gm/dl Albumin 4.3 (3.4-5.0) gm/dl Globulin 3.0 (2.5-4.0) gm/dl Albumin/Globulin Ratio 1.4 (0.9-2) Lipase 22 (11-82) U/L Administered Medications Discontinued Medications Albuterol (Albuterol Hfa 8 Gm Inhaler) 2 puffs INH NOW ONE Stop: 11/22/23 09:17 Last Admin: 11/22/23 09:39 Dose: 2 puffs Documented By: YARA Guaifenesin (Guaifenesin 600 Mg Tabcr) 600 mg PO NOW STA Stop: 11/22/23 09:17 Last Admin: 11/22/23 09:40 Dose: 600 mg Documented By: YARA Acetaminophen (Ofirmev) 1,000 mg in 100 mls @ 400 mls/hr IV NOW STA Stop: 11/22/23 09:30 Last Infusion: 11/22/23 10:54 Dose: Infused Documented By: Admin: 11/22/23 09:39 Dose: 400 mls/hr Documented By: YARA Sodium Chloride (Nss) 1,000 mls @ 999 mls/hr IV .Q1H1M ONE Stop: 11/22/23 10:16 Last Infusion: 11/22/23 10:54 Dose: Infused Documented By: Admin: 11/22/23 09:40 Dose: 999 mls/hr Documented By: YARA Sodium Chloride (Sodium Chloride 0.65% Na Soln 45 Ml ([place])) 2 sprays NA NOW ONE Stop: 11/22/23 09:17 Last Admin: 11/22/23 09:40 Dose: 2 sprays Documented By: YARA Imaging Data Radiologist's Impression: Chest X-Ray 11/22/23 09:15 XR chest 1V portable CLINICAL HISTORY: Chest pain, nonspecific COMPARISON STUDY: Chest CT November 24, 2020. Chest radiograph May 23, 2023. FINDINGS: Mild elevation of the right hemidiaphragm is unchanged. Lungs are clear. There is no pneumothorax or pleural effusion. Cardiac size is normal. Mediastinal contours are normal. There is no evidence for pulmonary edema. IMPRESSION: No acute cardiopulmonary findings. No change in appearance of the chest. ACT 112: Negative or not required by law. Electronically signed by: Vincent Joya M.D. 11/22/2023 9:40 AM Discharge Plan Visit Data Chief Complaint: Illness Stated Complaint: ILLNESS ED Provider: Ko Lee Discharge Problem: COVID-19, Shortness of breath, Generalized weakness Patient Disposition: Admitted As Inpatient Discharge Instructions Interventions: ED Discharge Assessment Last Done: 11/22/23 16:42
[2023-11-22] MEDS ORDERED: ALBUTEROL HFA 8 GM INHALER INH ONE (09:16)
[2023-11-22] MEDS ORDERED: ACETAMINOPHEN 1,000 MG/100 ML VIAL IV STA (09:16)
[2023-11-22] MEDS ORDERED: SODIUM CHLORIDE 0.9% 1,000 ML IV ONE (09:16)
[2023-11-22] MEDS ORDERED: guaiFENesin 600 MG TABCR PO STA (09:16)
[2023-11-22] MEDS ORDERED: SODIUM CHLORIDE 0.65% NA SOLN 45 ML (OCEAN) ONE (09:16)
[2023-11-22 09:38] LABS: Basophils # (auto) 0.04 K/uL (0.00-0.20); Basophils % (auto) 0.4 %; Eosinophils # (auto) 0.04 K/uL (0.00-0.50); Eosinophils % (auto) 0.4 %; Hematocrit (blood only) 47.3 % (42.0-52.0); Hemoglobin 15.9 g/dl (14.0-18.0); Immature Granulocytes # (auto) 0.04 K/uL (0.01-0.20); Immature Granulocytes % (auto) 0.4 %; Lymphocytes % (auto) 17.3 %; Mean Corpuscular Hemoglobin 30.2 pg (25.0-34.0); Mean Corpuscular Hgb Conc 33.6 g/dL (32.0-36.0); Mean Corpuscular Volume 89.9 fL (80.0-100.0); Monocytes # (auto) 0.58 K/uL (0.11-0.59); Monocytes % (auto) 5.9 %; Neutrophils % (auto) 75.6 %; Platelet Count 169 K/uL (130-400); RDW Coefficient of Variation 12.9 % (11.5-14.5); RDW Standard Deviation 42.5 fL (36.4-46.3); Red Blood Count 5.26 M/uL (4.70-6.10)
--- NOTE | 2023-11-22 09:42 | XRay Report ---
XR chest 1V portable CLINICAL HISTORY: Chest pain, nonspecific COMPARISON STUDY: Chest CT November 24, 2020. Chest radiograph May 23, 2023. FINDINGS: Mild elevation of the right hemidiaphragm is unchanged. Lungs are clear. There is no pneumo thorax or pleural effusion. Cardiac size is normal. Mediastinal contours are normal. There is no evid ence for pulmonary edema. IMPRESSION: No acute cardiopulmonary findings. No change in appearance of the chest. ACT 112: Negative or not required by law. Electronically signed by: Vincent Joya M.D. 11/22/2023 9:40 AM
[2023-11-22 09:56] LABS: Alanine Aminotransferase 14 U/L (7-52); Albumin Globulin Ratio 1.4 (0.9-2); Albumin Level 4.3 gm/dl (3.4-5.0); Alkaline Phosphatase 74 U/L (34-104); Anion Gap 6 (3-11); Aspartate Aminotransferase 17 U/L (13-39); BUN Creatinine Ratio 24.5 (10-20); Blood Urea Nitrogen 27 mg/dl (6-23); Calcium 9.2 mg/dl (8.6-10.3); Carbon Dioxide 28 mmol/L (21-32); Chloride 105 mmol/L (98-107); Creatine Kinase 92 U/L (30-223); Est GFR (African American) 71.1 ml/min; Est GFR (Non-African American) 61.3 ml/min; Glucose 91 mg/dl (70-99(Fasting)); Lipase 22 U/L (11-82); Phosphorus 2.5 mg/dl (2.5-4.9); Potassium 4.5 mmol/L (3.5-5.1); Sodium 139 mmol/L (136-145); Total Protein 7.3 gm/dl (6.0-8.3)
[2023-11-22 10:01] LABS: Troponin I High Sensitivity 13.6 pg/ml (0-20)
[2023-11-22 10:08] LABS: Influenza A virus by PCR Negative (Neg); Influenza B virus by PCR Negative (Neg); RSV by PCR Negative (Neg)
[2023-11-22 10:13] LABS: SARS CoV2 RNA(COVID-19) Ceph POSITIVE (Negative)
--- OUTSIDE RECORDS SUMMARY | 2023-11-22 11:40 | External Medical Summary | Continuity of Care Document ---
Author Name Unknown Organization [address] Address [address] [place], [place] [address] [place], [place] [id number] Care Team Providers Care Workflow Developer Name Role Phone Sung Brown Primary Care Physician [phone] Encounter [facility] [id number] Date(s): 11/13/23 - 11/13/[address] Will [address], [address] [place] [address] [phone] Encounter Diagnosis BPH (benign prostatic hyperplasia)(Discharge Diagnosis) - 11/13/23 Spinal stenosis(Discharge Diagnosis) - 11/13/23 Hypothyroidism(Discharge Diagnosis) - 11/13/23 Fatigue(Discharge Diagnosis) - 11/13/23 Dysphagia(Discharge Diagnosis) - 11/13/23 Discharge Disposition: Home or Self Care Attending Physician: MD Brown Michael P Referring Physician: MD Brown Michael P Allergies, Adverse Reactions, Alerts Substance Reaction Severity Status amoxicillin-clavulanate Diarrhea Severe Acti ve lisinopril Unknown Active Dust sinus congestion Active Mold sinus congestion Active pneumococcal 23-valent vaccine (obsolete) Unknown Active Assessment and Plan Extracted from: Title:Office Visit Note Author:MD Kevin, Ayo linares P Date:11/13/23 1.BPH (benign prostatic hy perplasia) Ongoing, symptoms not necessarily improved with medication. Givenongoing concerns of dizziness, I do think it is reasonable to discontinue this. Discontinue doxazosin for now. Will follow-up at her next appointment. 2.Spinal stenosis Ongoing, continues to work with orthopedics. Will continue to follow along. Agree with holding on gabapentin given dizziness/fatigue. 3.Hypothyroidism Suspect stable. Continue with levothyroxine 137mcg daily. Repeat TSH. 4.Fatigue Ongoing fatigue, most likelymultifactorial. Do not suspect dementia as per our discussion above. Will screen for additional secondary causes with blood work including CMP, CBC,vitamin B12, vitamin D,TSH. Follow-up pending blood test results. 5.Dysphagia Ongoing, unclear etiology. Discussed options. Referral to [facility] gastroenterology placed. Follow-up pending results. I have spent46 minutes in face to face interaction regarding review of ongoing medical conditions, discussion and counseling regarding diagnostic testing, discussion and counseling regarding treatment recommendations, discussion and counseling regarding management recommendations and non face to face time for chart review and documentation. Immunizations Given and Recorded Vaccine Date Status Refusal Reason influenza virus vaccine, inactivated 09/25/23 Give n influenza virus vaccine, inactivated 1 08/29/22 Gi ines SARS-CoV-2 (COVID-19) mRNA-1273 vaccine 10/31/21 R ecorded SARS-CoV-2 (COVID-19) mRNA-1273 vaccine 03/03/21 R ecorded SARS-CoV-2 (COVID-19) mRNA-1273 vaccine 02/03/21 R ecorded 1Result Comment: Yudi Claudio, [facility] Medications Dulcolax Stool Softener 100 mg oral capsule Start: 09/29/23 16:15:00 EST, 1 cap, PO, Daily, PRN: as needed for constipation Start Date: 09/29/23 Status: Ordered DULoxetine 60 mg oral delayed release capsule Start: 02/13/23 13:15:00 EDT, 1 cap, PO, Daily, Disp# 90 cap, Refills: 3, Pharmacy: [id number] Start Date: 02/13/23 Stop Date: 02/08/24 Status: Ordered famotidine 40 mg oral tablet Start: 06/13/23 13:10:00 EDT, See Instructions, Disp# 90 tab, Refills: 2, Take 1 tablet by mouth once daily, Pharmacy: [id number] Start Date: 06/13/23 Status: Ordered levothyroxine 137 mcg (0.137 mg) oral tablet Start: 05/15/23 13:56:00 EDT, 1 tab, PO, Daily, Disp# 90 tab, Refills: 1, Pharmacy: [id number] Start Date: 05/15/23 Stop Date: 11/11/23 Status: Ordered meclizine 12.5 mg oral tablet Start: 09/29/23 16:13:00 EST, 20 each, TAKE 1 TABLET BY MOUTH THREE TIMES DAILY NEEDED FOR DIZZINESS Start Date: 09/29/23 Status: Ordered Motrin Start: 11/13/23 13:08:00 EST, 600 mg =, PO, prn not to exceed 3200 mg/day Start Date: 11/13/23 Status: Ordered multivitamin Start: 10/22/18 11:28:00 EST, 1 tab, PO, Daily Start Date: 10/22/18 Status: Ordered [place] Start: 10/22/18 11:27:00 EST, [place], See Instructions, 1000mg po daily Start Date: 10/22/18 Status: Ordered Tylenol 500 mg oral tablet Start: 11/13/23 13:08:00 EST, 1 tab, PO, q6h, PRN: as needed for fever Start Date: 11/13/23 Status: Ordered Vitamin D3 2000 intl units oral tablet Start: 10/22/18 11:28:00 EST, 1 tab, PO, Daily Start Date: 10/22/18 Status: Ordered Problem List Condition Confirmation Course Effective Dates Status H ealth Status Informant BPH (benign prostatic hyperplasia) Confirmed Active Diarrhea Confirmed Active Diplopia Confirmed Active Right hip pain Confirmed Active Hypothyroidism Confirmed Active Sacroiliitis Confirmed Active Leg length discrepancy Confirmed Active Right lumbar radiculopathy Confirmed Active Lumbosacral radiculopathy Confirmed Active Mood disorder Confirmed Active Myasthenia gravis without exacerbation (disorder) Confirmed Active Leg pain Confirmed Active Leg weakness Confirmed Active Spinal stenosis Confirmed Active Lumbar stenosis Confirmed Active Diagnosis Diagnosis Type Effective Dates Health Status Clinical Service Informant Spinal stenosis Discharge Diagnosis 11/13/23 Hypothyroidism Discharge Diagnosis 11/13/23 Fatigue Discharge Diagnosis 11/13/23 BPH (benign prostatic hyperplasia) Discharge Diagnosis 11/13/23 Dysphagia Discharge Diagnosis 11/13/23 Procedures Procedure Date Related Diagnosis Body Site Status Injection 1 11/25/22 Completed Hydrogen breath test 2 03/15/19 Co mpleted Upper GI endoscopy 3, 4 01/27/19 C ompleted Colonoscopy 5 07/03/16 Completed CE - Cataract extraction - Bilateral Completed Hernia repair Completed Surgery - Nasal Completed Tonsillectomy and adenoidectomy Completed 1Right paramedian L4-L5 interlaminar epidural steroid injection under fluoroscopic guidance. Diagnosis lumbar stenosis with a right L5 radiculopathy. 2Negative for small bowel bacterial overgrowth 3Pathology results: Small bowel biopsy: 1) Focal villous blunting and focal crypt hyperplasia are seen. 2) Increased intraepithelial lymphocytes are not seen. 3) Giardia lamblia organisms are not seen. 4) Please see comment. 4F/U as needed. 5Non-bleeding internal hemorrhoids. Diverticulosis in the sigmoid colon. Repeat in 5 years. Vital Signs Most recent to oldest [Reference Range]: 1 Temperature [36.5-37.9 DegC] 36.2 DegC *LOW* (11/13/23 1:09 PM) Heart Rate 78 bpm (11/13/23 1:09 PM) Respiratory Rate 16 br/min (11/13/23 1:09 PM) Blood Pressure 100/62mmHg (11/13/23 1:09 PM) Cuff Pulse Pressure 38 mmHg (11/13/23 1:09 PM) Social History Social History Type Response Smoking Status Never smoked cigaret tarik Sex Male Medicine Outpt Note * MD Kevin, Sung Johnston: PERFORM Event Display: Medicine Outpt Note Authored Date: [id number] Chief Complaint 3 month follow up dizziness- and side effects of medications History of Present Illness Kiara ([place]/Reg) Marielena is an 81 year old male who presents for follow up of his chronic medical conditions. He established care with me on 04/19/22. He is a former patient of Dr. Pablo. He was last seen by me on 05/15/23. At our last appointment, he had ongoing symptoms related to BPH. We made an adjustment and initiated doxazosin 1mg nightly. In addition, he had concerns related to shortness of breath at night. We proceeded with TTE which was generally unremarkable. He continues to have some challenges regarding dizziness as well as falling asleepmore easily. He reports thathe will often sit in his recliner and fall asleep while watching TV more easily. Ongoing fatiguethat has remained relatively the same. He does have trouble swallowing. For example, he has trouble with thin noodles. He is able to drinkwith fluids. He previously had a workup which included an EGDin 2018 which was unremarkable. Symptoms haveprogressed over the past 3 years. He is somewhat concerned aboutproceeding with an EGD giventhe anesthesia. He would like to speak further with gastroenterology. He is worried about dementia. He jumped into a wrong car, figured it out, got into his 's car. He reports that he forgot where he was going. He ultimately got lost but then found where he needed to go. This really shook him up. He doesn't think his family has any concerns about memory. Problem List: #Spinal Stenosis: with associated lower leg weakness. Previous workup concern for myasthenia gravisdue to associated sxs of fatigue and intermittent double vision. Evaluated by [facility] clinic at [facility]. MRI w/ multilevel stenosis of back. He is followed by Dr. Mcmahon, last seen11/13/22with plan for L3-L4 injection. He is currently taking NSAID PRN for pain. Treated with short coursecorticosteroids (05/23/22) and increased APAP 1000mg TID standing. #Concern for restless leg syndrome: Currently managed with ropinirole 1mg QHS. #Hypothyroidism: currently managed with levothyroxine 137 mcg daily; TSH wnl (10/08) #Hyperlipidemia: previously on medication, though not currently #Obstructive sleep apnea: Not currently on CPAP, difficulty with tolerating a mask #Restrictive lung disease: previously followed by pulmonary through [facility] with right lung restriction; as such has avoided any potential sedation #Mood disorder: switched from sertraline to duloxetine (10/17/22) due to decompensated symptoms, uptitrated to 60mg daily #Difficulty swallowing: he was evaluated by Dr. Wolff the past which included EGDwithout anysignificant findings. #BPH: started on tamsulosin (05/23/22) due to significant nocturia Review of Systems As per HPI Physical Exam Vitals & Measurements T:36.2C HR:78(Monitored) RR:16 BP:100/62 SpO2:95% General: No Acute Distress. Speaking comfortably. Does not appear anxious. Neurologic: Alert and Oriented x 3, able to interact. Psychiatric: Pleasant, normal affect. Respiratory: Good inspiratory effort, no use of accessory muscles. No increased work of breathing. Able to complete full sentences. HEENT: Bulbar conjunctivae clear. No discharge from eyes. No nasal discharge. Lips not swollen.No visible neck masses. Skin: No rash on visible, exposed areas. Assessment/Plan 1.BPH (benign prostatic hyperplasia) Ongoing, symptoms not necessarily improved with medication. Givenongoing concerns of dizziness,I do think it is reasonable to discontinue this. Discontinue doxazosin for now. Will follow-up at her next appointment. 2.Spinal stenosis Ongoing, continues to work with orthopedics. Will continue to follow along. Agree with holding on gabapentin given dizziness/fatigue. 3.Hypothyroidism Suspect stable. Continue with levothyroxine 137mcg daily. Repeat TSH. 4.Fatigue Ongoing fatigue, most likelymultifactorial. Do not suspect dementia as per our discussion above. Will screen for additional secondary causes with blood work including CMP, CBC,vitamin B12, vitamin D,TSH. Follow-up pending blood test results. 5.Dysphagia Ongoing, unclear etiology. Discussed options. Referral to [facility] gastroenterology placed. Follow-up pending results. I have spent46 minutes in face to face interaction regarding review of ongoing medical conditions, discussion and counseling regarding diagnostic testing, discussion and counseling regarding treatment recommendations, discussion and counseling regarding management recommendations and non face to face time for chart review and documentation. Problem List/Past Medical History Ongoing BPH (benign prostatic hyperplasia) Diarrhea Diplopia Hypothyroidism Leg length discrepancy Leg pain Leg weakness Lumbar stenosis Lumbosacral radiculopathy Mood disorder Myasthenia gravis without exacerbation (disorder) Right hip pain Right lumbar radiculopathy Sacroiliitis Spinal stenosis Procedure/Surgical History Injection (11/25/2022)Hydrogen breath test (03/15/2019)Upper GI endoscopy (01/27/2019)Colonoscopy (07/03/2016)Surgery - NasalTonsillectomy and adenoidectomyCE - Cataract extraction - BilateralHernia repair Medications acetaminophen(Tylenol 500 mg oral tablet), 500 mg= 1 tab, PO, q6h, PRN cholecalciferol(Vitamin D3 2000 intl units oral tablet), 2000 Int_Unit= 1 tab, PO, Daily docusate(Dulcolax Stool Softener 100 mg oral capsule), 100 mg= 1 cap, PO, Daily, PRN DULoxetine(DULoxetine 60 mg oral delayed release capsule), 60 mg= 1 cap, PO, Daily, 3 refills famotidine(famotidine 40 mg oral tablet), See Instructions ibuprofen(Motrin), 600 mg, PO levothyroxine(levothyroxine 137 mcg (0.137 mg) oral tablet), 137 mcg= 1 tab, PO, Daily, 1 refills meclizine(meclizine 12.5 mg oral tablet) multivitamin, 1 tab, PO, Daily unknown medication([place]), See Instructions Allergies amoxicillin-clavulanate(Severe)Diarrhea Dustsinus congestion Moldsinus congestion lisinoprilUnknown pneumococcal 23-valent vaccine (obsolete)Unknown Social History Smoking Status Never smoked cigarettes Tobacco Use:Never smoker Family History Cancer: Mother and Father. Glaucoma: Mother. Hypertension: Brother. Macular disease: Mother. Respiratory disease: Mother. Health Status Family Member(s) Immunizations Vaccine Date Status influenza virus vaccine, inactivated 09/25/2023 Given influenza virus vaccine, inactivated 08/29/2022 Given Comments : Yudi Claudio CMA SARS-CoV-2 (COVID-19) mRNA-1273 vaccine 10/31/2021 Recorded SARS-CoV-2 (COVID-19) mRNA-1273 vaccine 03/03/2021 Recorded SARS-CoV-2 (COVID-19) mRNA-1273 vaccine 02/03/2021 Recorded Recommendations Health Maintenance Pending(in the next year) OverDue Falls Plan of Care due09/25/23and every 1year Due Adult COVID-19 Vaccination due11/13/23Unknown Frequency Adult Social Determinants of Health Screening due11/13/23Unknown Frequency Adult Tdap/Td Vaccine due11/13/23Unknown Frequency Lipid Screening due11/13/23Unknown Frequency Medicare Annual Wellness Visit due11/13/23and every 1year Shingles Vaccine due11/13/23One-time only Due In Future Adult Influenza Vaccine not due until05/17/24and every 1year Body Mass Index not due until09/18/24and every Satisfied(in the past 1 year) Satisfied Adult Influenza Vaccine on09/25/23.Satisfied by LANCE Goss Carli Body Mass Index on09/18/23.Satisfied by LANCE Hernandez Angela M Electronic Signature on File Electronically Reviewed/Signed by: Sung Brown MD Author Signature Dt/Tm:11/13/2023 01:55 PM Division of Internal Medicine MPM Patient Care team information Care Team Personnel Name: MD Kevin, Sung Johnston Position: Physician - Internal Med Member Role: Primary Care Provider Address: Address: [address] [place] [address] Care Team Related Persons Name: NEDA COTA Address: home No Address Provided
--- OUTSIDE RECORDS SUMMARY | 2023-11-22 11:41 | External Medical Summary | Continuity of Care Document ---
Author Name Unknown Organization [address] Address [address] [place] [id number] Care Team Providers Care Family Consumer Science Fcs Teacher Name Role Phone Sung Brown Primary Care Physician [phone] [id number]/25/[facility] - 09/25/[address] [place] [address] [phone] Encounter Diagnosis Need for influenza vaccination(Discharge Diagnosis) - 09/25/23 Discharge Disposition: Home or Self Care Attending Physician: MD Brown Michael P Referring Physician: MD Brown Michael P Allergies, Adverse Reactions, Alerts Substance Reaction Severity Status Dust sinus congestion Active Mold sinus congestion Active Immunizations Given and Recorded Vaccine Date Status Refusal Reason influenza virus vaccine, inactivated 09/25/23 Give n influenza virus vaccine, inactivated 1 08/29/22 Gi ines SARS-CoV-2 (COVID-19) mRNA-1273 vaccine 10/31/21 R ecorded SARS-CoV-2 (COVID-19) mRNA-1273 vaccine 03/03/21 R ecorded SARS-CoV-2 (COVID-19) mRNA-1273 vaccine 02/03/21 R ecorded 1Result Comment: Yudi Claudio, [facility] Medications diclofenac 1% topical gel Start: 12/26/22 11:12:00 EST, 1 appl, topical, bid, Disp# 100 g, PRN: pain, Pharmacy: [facility] Start Date: 12/26/22 Stop Date: 01/09/23 Status: Ordered doxazosin 1 mg oral tablet Start: 07/17/23 13:46:00 EDT, See Instructions, Disp# 30 tab, Refills: 2, Take 1 tablet by mouth once daily, Pharmacy: [id number] Start Date: 07/17/23 Status: Ordered DULoxetine 60 mg oral delayed release capsule Start: 02/13/23 13:15:00 EDT, 1 cap, PO, Daily, Disp# 90 cap, Refills: 3, Pharmacy: [facility] Start Date: 02/13/23 Stop Date: 02/08/24 Status: Ordered famotidine 40 mg oral tablet Start: 06/13/23 13:10:00 EDT, See Instructions, Disp# 90 tab, Refills: 2, Take 1 tablet by mouth once daily, Pharmacy: [facility] Start Date: 06/13/23 Status: Ordered levothyroxine 137 mcg (0.137 mg) oral tablet Start: 05/15/23 13:56:00 EDT, 1 tab, PO, Daily, Disp# 90 tab, Refills: 1, Pharmacy: [facility] Start Date: 05/15/23 Stop Date: 11/11/23 Status: Ordered multivitamin Start: 10/22/18 11:28:00 EST, 1 tab, PO, Daily Start Date: 10/22/18 Status: Ordered [place] Oil Start: 10/22/18 11:27:00 EST, [place], See Instructions, 1000mg po daily Start Date: 10/22/18 Status: Ordered traMADol 50 mg oral tablet Start: 11/11/22 16:30:00 EST, 1 tab, PO, bid, Disp# 10 tab, PRN: as needed for pain, Pharmacy: [facility] Start Date: 11/11/22 Status: Ordered Vitamin D3 2000 intl units oral tablet Start: 10/22/18 11:28:00 EST, 1 tab, PO, Daily Start Date: 10/22/18 Status: Ordered Problem List Condition Confirmation Course Effective Dates Status H ealth Status Informant BPH (benign prostatic hyperplasia) Confirmed Active Diarrhea Confirmed Active Diplopia Confirmed Active Right hip pain Confirmed Active Hypothyroidism Confirmed Active Sacroiliitis Confirmed Active Right lumbar radiculopathy Confirmed Active Lumbosacral radiculopathy Confirmed Active Mood disorder Confirmed Active Myasthenia gravis without exacerbation (disorder) Confirmed Active Leg pain Confirmed Active Leg weakness Confirmed Active Spinal stenosis Confirmed Active Lumbar stenosis Confirmed Active Diagnosis Diagnosis Type Effective Dates Health Status Clinical Service Informant Need for influenza vaccination Discharge Diagnosis 09/25/23 Non-Specified Procedures Procedure Date Related Diagnosis Body Site [...] the sigmoid colon. Repeat in 5 years. Social History Social History Type Response Smoking Status Never smoked cigaret tarik Sex Male Patient Care team information Care Team Personnel Name: MD Kevin, Sung Johnston Position: Physician - Internal Med Member Role: Primary Care Provider Address: Address: [address] [place] [id number] [place] Care Team Related Persons Name: NEDA COTA Address: home No Address Provided
--- OUTSIDE RECORDS SUMMARY | 2023-11-22 11:41 | External Medical Summary | Continuity of Care Document ---
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 Finance Professor Name Role Phone Kevin Sung Vickie Primary Care Physician [phone] Encounter [facility] [id number] Date(s): 07/25/23 - 07/25/23 [facility] [place] [id number] [address] [place] [id number] Encounter Diagnosis Lumbosacral radiculopathy(Discharge Diagnosis) - 07/25/23 Lumbar stenosis(Discharge Diagnosis) - 07/25/23 Discharge Disposition: Home or Self Care Attending Physician: MD Mcmahon Gregory G Allergies, Adverse Reactions, Alerts Substance Reaction Severity Status Dust sinus congestion Active Mold sinus congestion Active Assessment and Plan Extracted from: Title:Follow Up Visit Author:MD Mcmahon Gregory G Date:07/25/23 1.Lumbar stenosis Stable 2.Lumbosacral radiculopathy No significant flares continue current regimentand have him follow-up with us on a as needed or as needed basis Immunizations Given and Recorded Vaccine Date Status Refusal Reason influenza virus vaccine, inactivated 1 08/29/22 Gi ines SARS-CoV-2 (COVID-19) mRNA-1273 vaccine 10/31/21 R ecorded SARS-CoV-2 (COVID-19) mRNA-1273 vaccine 03/03/21 R ecorded SARS-CoV-2 (COVID-19) mRNA-1273 vaccine 02/03/21 R ecorded 1Result Comment: Yudi Claudio, [facility] Medications diclofenac 1% topical gel Start: 12/26/22 11:12:00 EST, 1 appl, topical, bid, Disp# 100 g, PRN: pain, Pharmacy: [facility] Start Date: 12/26/22 Stop Date: 01/09/23 Status: Ordered doxazosin 1 mg oral tablet Start: 07/17/23 13:46:00 EDT, See Instructions, Disp# 30 tab, Refills: 2, Take 1 tablet by mouth once daily, Pharmacy: [facility] Start Date: 07/17/23 Status: Ordered DULoxetine 60 mg oral delayed release capsule Start: 02/13/23 13:15:00 EDT, 1 cap, PO, Daily, Disp# 90 cap, Refills: 3, Pharmacy: [facility] Start Date: 02/13/23 Stop Date: 02/08/24 Status: Ordered famotidine 40 mg oral tablet Start: 06/13/23 13:10:00 EDT, See Instructions, Disp# 90 tab, Refills: 2, Take 1 tablet by mouth once daily, Pharmacy: [facility] Start Date: 06/13/23 Status: Ordered levothyroxine 137 mcg (0.137 mg) oral tablet Start: 05/15/23 13:56:00 EDT, 1 tab, PO, Daily, Disp# 90 tab, Refills: 1, Pharmacy: [facility] Start Date: 05/15/23 Stop Date: 11/11/23 Status: Ordered multivitamin Start: 10/22/18 11:28:00 EST, 1 tab, PO, Daily Start Date: 10/22/18 Status: Ordered [place] [employer] Start: 10/22/18 11:27:00 EST, [place] [employer], See Instructions, 1000mg po daily Start Date: 10/22/18 Status: Ordered traMADol 50 mg oral tablet Start: 11/11/22 16:30:00 EST, 1 tab, PO, bid, Disp# 10 tab, PRN: as needed for pain, Pharmacy: [facility] Start Date: 11/11/22 Status: Ordered Vitamin D3 2000 intl units oral tablet Start: 10/22/18 11:28:00 EST, 1 tab, PO, Daily Start Date: 10/22/18 Status: Ordered Mental Status 07/25/23 Barriers to Learning one year None evide nt Mandatory Health Literacy Documentation Yes Health Literacy Communication Barriers N ever Primary Language Estonian Problem List Condition Confirmation Course Effective Dates Status H ealth Status Informant BPH (benign prostatic hyperplasia) Confirmed Active Diarrhea Confirmed Active Diplopia Confirmed Active Right hip pain Confirmed Active Hypothyroidism Confirmed Active Sacroiliitis Confirmed Active Lumbosacral radiculopathy Confirmed Active Mood disorder Confirmed Active Leg pain Confirmed Active Leg weakness Confirmed Active Spinal stenosis Confirmed Active Lumbar stenosis Confirmed Active Diagnosis Diagnosis Type Effective Dates Health Status Clinical Service Informant Lumbosacral radiculopathy Discharge Diagnosis 07/25/23 Lumbar stenosis Discharge Diagnosis 07/25/23 Procedures Procedure Date Related Diagnosis Body Site [...] Status Never smoked cigaret tarik Sex Male Ortho Outpt Note * MD Lisandro, Maxim Espitia: PERFORM Event Display: Ortho Outpt Note Authored Date: [id number] Chief Complaint Followup. Pain Primary Care Provider MD Kevin, Sung Johnston Subjective Patient is an 82-year-old male who returns today for follow-up. For the most part he reports doing pretty well. He still gets some right hip painat times. He does report that with that he felt the ultrasound-guided injection was beneficial to his hip. He quantifies pain today as a 2 out of 10 currently 5 out of 10 at the worst 1 out of 10 at the least. He denies any significant radicular issues down the legs with limitations because of the back with walking more related to the hip Objective Physical Exam Pleasant male seated comfortably in no apparent distress. Musculoskeletal examination his lumbar paraspinals were palpated he had some mild sciatic notch sensitivity on the right sidehe had no focal weakness negative seated straight leg raises. 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
--- OUTSIDE RECORDS SUMMARY | 2023-11-22 11:41 | External Medical Summary | Continuity of Care Document ---
Author Name Unknown Organization [place] [address] T[address] Johnston Address [address] [place], [place] [id number] Care Team Providers Care Veterinary Technology Instructor Name Role Phone Sung Brown Primary Care Physician [phone] Encounter [facility] [id number] Date(s): 05/30/23 - 05/30/23 [facility] [address], [address] [place] [address] [phone] Discharge Disposition: Home or Self Care Attending [...] 02/03/21 R ecorded 1Result Comment: Yudi Claudio, [facility] Medications diclofenac 1% topical gel Start: 12/26/22 11:12:00 EST, 1 appl, topical, bid, Disp# 100 g, PRN: pain, Pharmacy: [facility] Start Date: 12/26/22 Stop Date: 01/09/23 Status: Ordered doxazosin 1 mg oral tablet Start: 05/15/23 13:49:00 EDT, 1 tab, PO, Daily, Disp# 30 tab, Refills: 1, Pharmacy: [facility] Start Date: 05/15/23 Stop Date: 07/14/23 Status: Ordered DULoxetine 60 mg oral delayed release capsule Start: 02/13/23 13:15:00 EDT, 1 cap, PO, Daily, Disp# 90 cap, Refills: 3, Pharmacy: [facility] Start Date: 02/13/23 Stop Date: 02/08/24 Status: Ordered famotidine 40 mg oral tablet Start: 12/26/22 11:16:00 EST, 1 tab, PO, Daily, Disp# 90 tab, Refills: 1, Pharmacy: [facility] Start Date: 12/26/22 Status: Ordered levothyroxine 137 mcg (0.137 mg) oral tablet Start: 05/15/23 13:56:00 EDT, 1 tab, PO, Daily, Disp# 90 tab, Refills: 1, Pharmacy: [facility] Start Date: 05/15/23 Stop Date: 11/11/23 Status: Ordered multivitamin Start: 10/22/18 11:28:00 EST, 1 tab, PO, Daily Start Date: 10/22/18 Status: Ordered [place] [employer] Start: 10/22/18 11:27:00 EST, [place] [employer], See Instructions, 1000mg po daily Start Date: 10/22/18 Status: Ordered traMADol 50 mg oral tablet Start: 11/11/22 16:30:00 EST, 1 tab, PO, bid, Disp# 10 tab, PRN: as needed for pain, Pharmacy: [facility] Start Date: 11/11/22 Status: Ordered Vitamin [...] stenosis Confirmed Active Lumbar stenosis Confirmed Active Procedures Procedure Date Related Diagnosis Body Site [...] the sigmoid colon. Repeat in 5 years. Results Radiology Reports * Exam Date Time Procedure Performing Provider Status 05/30/23 3:14 PM Echo TransTHORacic TTE Complete Adele Jean; Final Notes: (Echo TransTHORacic TTE Complete) Reason For Exam: Shortness of breath Echo TransTHORacic TTE Complete Report Signatures Finalized by Dr. Wilfredo Gomez MD on 05/30/2023 04:43 PM [place] Act 112: No-No further action needed Summary 1. Small, underfilled left ventricle with normal systolic function with no regional wall motion abnormalities. 2. Ejection fraction as calculated by Biplane Simpsons method is 60%. 3. Mild left ventricular hypertrophy. 4. Grade I diastolic dysfunction of the left ventricle (impaired relaxation pattern) with normal LA Pressures. 5. No evidence of MIRELLA. 6. Normal right ventricular size and function. 7. Normal biatrial size. 8. No significant valvular abnormalities. 9. Normal estimated pulmonary artery systolic pressures. 10. No prior studies for comparison. Patient Info Name: KIARA COTA Age: 82 years : 1940 Gender: Male Ht: 178 cm Wt: 73 kg BSA: 1.89 m2 HR: 82 bpm BP: 136 / 72 mmHg Heart Rhythm: Sinus Rhythm Technical Quality: Fair Exam Date: 05/30/2023 2:37 PM Exam Location: [facility] Patient Status: Outpatient Staff Ordering Physician: Sung Brown Pizza Delivery: Adele Jean RDCS, T Attending Physician: Sung Brown Study Info CPT 56281 - Indications R0602 - Shortness of breath Procedure(s) * A complete two-dimensional, color flow and Doppler transthoracic echocardiogram was performed. Exam Type: Cardiac Basic Left Ventricle Small, underfilled left ventricle with normal systolic function with no regional wall motion abnormalities. Ejection fraction as calculated by Biplane Simpsons method is 60%. Mild left ventricular hypertrophy. Grade I diastolic dysfunction of the left ventricle (impaired relaxation pattern) with normal LA Pressures. No evidence of MIRELLA. Right Ventricle Normal right ventricular size and function. TAPSE is normal, 2.0 cm. Left Atrium Normal left atrial size. Right Atrium Normal right atrial size. Aortic Valve Calcified, tricuspid aortic valve without stenosis or insufficiency. Pulmonic Valve Trace pulmonary regurgitation. Estimated pulmonary arterial mean pressure is 12 mmHg. Mitral Valve Calcified anterior mitral valve leaflet tip. Trace to mitral valve regurgitation. Tricuspid Valve Mild tricuspid valve regurgitation. Normal estimated pulmonary artery pressures, estimated PASP is 22 mmHg. Pericardium/Pleural No pericardial effusion. Inferior Vena Cava Inferior vena cava is not well visualized. Assumed RA pressure of 3 mmHg. Aorta The aortic root at the sinus of Valsalva is mildly dilated measuring 3.8 cm with an index of 2.01 cm/m2. The prox ascending aorta is borderline dilated measuring 3.4 cm with an index of 1.80 cm/m2. The aorta arch is normal measuring 2.6 cm. Left Ventricular Outflow Tract Name Value Normal LVOT 2D LVOT Diameter 2.1 cm LVOT Doppler LVOT Peak Velocity 0.91 m/s LVOT Peak Gradient 3 mmHg LVOT Mean Gradient 2 mmHg LVOT VTI 17.35 cm LVOT Stroke Volume 57.96 ml LVOT Stroke Volume Index 0.03 l/m2 LVOT Cardiac Output 4.75 l/min LVOT Cardiac Index 2.51 L/min/m2 Pulmonic Valve Name Value Normal PV 2D RVOT Diameter (2D) 2.8 cm 1.7-2.7 RVOT Doppler RVOT Peak Velocity 0.41 m/s PV Doppler PV Peak Velocity 0.99 m/s PV Regurgitation Doppler WI Peak Velocity 1.49 m/s Mitral Valve Name Value Normal MV Doppler MV PHT 68 ms MV Diastolic Function MV E Peak Velocity 0.65 m/s <=0.50 MV A Peak Velocity 1.04 m/s MV E/A 0.63 <=0.80 MV Decel Time 235 ms MV Annular TDI MV Septal s' Velocity 7.62 cm/s MV Septal e' Velocity 7.45 cm/s >=7.00 MV E/e' (Septal) 8.8 <=8.0 MV Lateral s' Velocity 14.00 cm/s MV Lateral e' Velocity 7.40 cm/s >=10.00 MV E/e' (Lateral) 8.81 <=8.00 MV e' Average 7.43 MV E/e' (Average) 8.78 <=14.00 Tricuspid Valve Name Value Normal TV Regurgitation Doppler TR Peak Velocity 2.20 m/s <=2.80 TR Peak Gradient 14 mmHg Estimated PAP/RSVP RA Pressure 3 mmHg <=5 PA Systolic Pressure 22 mmHg <40 PA Mean Pressure (WI Velocity) 12 mmHg TV Diastolic Function TV E Peak Velocity 0.59 m/s TV A Peak Velocity 0.37 m/s TV E/A 1.63 0.80-2.00 TV Decel Time 169 ms >=120 TV Annular TDI TV Lateral Elva s' Velocity 10.0 cm/s 9.5-18.7 TV Lateral Elva e' Velocity 6.7 cm/s <7.8 TV E/e' 8.92 2.00-6.00 Aorta Name Value Normal Ascending Aorta Sinus of Valsalva Diameter 3.8 cm 3.1-3.7 Sinus of Valsalva Index 2.01 cm/m2 1.50-1.90 Prox Asc Ao Diameter 3.4 cm 2.6-3.4 Prox Asc Ao Diameter Index 1.80 cm/m2 1.30-1.70 Thoracic Aorta Ao Arch Diameter 2.6 cm Desc Ao Peak Velocity 0.73 m/s Desc Ao Peak Gradient 2 mmHg Aortic Valve Name Value Normal AV Doppler AV Peak Velocity 1.06 m/s <2.00 AV Peak Gradient 5 mmHg AV Area (Cont Eq Ozzy) 2.9 cm2 AV Area Index (Cont Eq Ozzy) 1.51 cm2/m2 AV V1/V2 Ratio 0.86 AV Regurgitation 2D LVOT Area 3.3 cm2 Ventricles Name Value Normal LV Dimensions 2D/MM IVS Diastolic Thickness (2D) 1.3 cm 0.6-1.0 LVID Diastole (2D) 3.6 cm 3.6-5.6 LVIW Diastolic Thickness (2D) 1.2 cm 0.6-1.0 LVID Systole (2D) 2.0 cm 2.5-4.0 LVOT Diameter 2.1 cm LV Mass (2D Cubed) 151.67 g 88.00-224.00 LV Mass Index (2D Cubed) 0.01 g/cm2 0.00-0.01 Relative Wall Thickness (2D) 0.64 LV Fractional Shortening/Ejection Fraction 2D/MM LV Fractional Shortening (2D) 45 % 25-43 LV Diastolic Volume (4C MOD) 52 ml LV Diastolic Volume (2C MOD) 56 ml LV Diastolic Volume (BP MOD) 54 ml 62-150 LV Diastolic Volume Index (BP MOD) 28.37 ml/m2 34.00-74.00 LV Systolic Volume (BP MOD) 22 ml 21-61 LV Systolic Volume Index (BP MOD) 11.68 ml/m2 11.00-31.00 LV EF (BP MOD) 60 % 57-68 LV SV (BP MOD) 31.61 ml RV Dimensions 2D/MM RV Basal Diastolic Dimension 2.8 cm 2.5-4.1 TAPSE 2.0 cm >=1.7 Atria Name Value Normal LA Dimensions LA Area (4C) 13.2 cm2 LA Length (4C) 5.6 cm LA Area (2C) 14.1 cm2 LA Length (2C) 5.4 cm LA Volume (4C A-L) 26.51 ml LA Volume (2C A-L) 31.57 ml LA Volume (BP A-L) 30 ml 18-58 LA Volume Index (BP A-L) 15.62 ml/m2 <=34.00 RA Dimensions RA Area (4C) 11.9 cm2 <=18.0 Final Signed by:DO Gomez Jason D Signed (Electronic Signature):05/30/2023 2:37 p Social History Social History Type Response Smoking Status Never smoked cigaret tarik Sex Male US Heart Transthoracic * DO Gomez Jason D: VERIFY, PERFORM, VERIFY Event Display: Report Authored Date: [id number] Report Signatures Finalized by Dr. Wilfredo Gomez MD on 05/30/2023 04:43 PM [place] Act 112: No-No further action needed Summary 1. Small, underfilled left ventricle with normal systolic function with no regional wall motion abnormalities. 2. Ejection fraction as calculated by Biplane Simpsons method is 60%. 3. Mild left ventricular hypertrophy. 4. Grade I diastolic dysfunction of the left ventricle (impaired relaxation pattern) with normal LA Pressures. 5. No evidence of MIRELLA. 6. Normal right ventricular size and function. 7. Normal biatrial size. 8. No significant valvular abnormalities. 9. Normal estimated pulmonary artery systolic pressures. 10. No prior studies for comparison. Patient Info Name: KIARA COTA Age: 82 years : 1940 Gender: Male Ht: 178 cm Wt: 73 kg BSA: 1.89 m2 HR: 82 bpm BP: 136 / 72 mmHg Heart Rhythm: Sinus Rhythm Technical Quality: Fair Exam Date: 05/30/2023 2:37 PM Exam Location: [facility] Patient Status: Outpatient Staff Ordering Physician: Sung Brown Pizza Delivery: Adele Jean RDCS, RVT Attending Physician: Sung Brown Study Info CPT 40815 - Indications R0602 - Shortness of breath Procedure(s) * A complete two-dimensional, color flow and Doppler transthoracic echocardiogram was performed. Exam Type: Cardiac Basic Left Ventricle Small, underfilled left ventricle with normal systolic function with no regional wall motion abnormalities. Ejection fraction as calculated by Biplane Simpsons method is 60%. Mild left ventricular hypertrophy. Grade I diastolic dysfunction of the left ventricle (impaired relaxation pattern) with normal LA Pressures. No evidence of MIRELLA. Right Ventricle Normal right ventricular size and function. TAPSE is normal, 2.0 cm. Left Atrium Normal left atrial size. Right Atrium Normal right atrial size. Aortic Valve Calcified, tricuspid aortic valve without stenosis or insufficiency. Pulmonic Valve Trace pulmonary regurgitation. Estimated pulmonary arterial mean pressure is 12 mmHg. Mitral Valve Calcified anterior mitral valve leaflet tip. Trace to mitral valve regurgitation. Tricuspid Valve Mild tricuspid valve regurgitation. Normal estimated pulmonary artery pressures, estimated PASP is 22 mmHg. Pericardium/Pleural No pericardial effusion. Inferior Vena Cava Inferior vena cava is not well visualized. Assumed RA pressure of 3 mmHg. Aorta The aortic root at the sinus of Valsalva is mildly dilated measuring 3.8 cm with an index of 2.01 cm/m2. The prox ascending aorta is borderline dilated measuring 3.4 cm with an index of 1.80 cm/m2. The aorta arch is normal measuring 2.6 cm. Left Ventricular Outflow Tract Name Value Normal LVOT 2D LVOT Diameter 2.1 cm LVOT Doppler LVOT Peak Velocity 0.91 m/s LVOT Peak Gradient 3 mmHg LVOT Mean Gradient 2 mmHg LVOT VTI 17.35 cm LVOT Stroke Volume 57.96 ml LVOT Stroke Volume Index 0.03 l/m2 LVOT Cardiac Output 4.75 l/min LVOT Cardiac Index 2.51 L/min/m2 Pulmonic Valve Name Value Normal PV 2D RVOT Diameter (2D) 2.8 cm 1.7-2.7 RVOT Doppler RVOT Peak Velocity 0.41 m/s PV Doppler PV Peak Velocity 0.99 m/s PV Regurgitation Doppler WI Peak Velocity 1.49 m/s Mitral Valve Name Value Normal MV Doppler MV PHT 68 ms MV Diastolic Function MV E Peak Velocity 0.65 m/s <=0.50 MV A Peak Velocity 1.04 m/s MV E/A 0.63 <=0.80 MV Decel Time 235 ms MV Annular TDI MV Septal s' Velocity 7.62 cm/s MV Septal e' Velocity 7.45 cm/s >=7.00 MV E/e' (Septal) 8.8 <=8.0 MV Lateral s' Velocity 14.00 cm/s MV Lateral e' Velocity 7.40 cm/s >=10.00 MV E/e' (Lateral) 8.81 <=8.00 MV e' Average 7.43 MV E/e' (Average) 8.78 <=14.00 Tricuspid Valve Name Value Normal TV Regurgitation Doppler TR Peak Velocity 2.20 m/s <=2.80 TR Peak Gradient 14 mmHg Estimated PAP/RSVP RA Pressure 3 mmHg <=5 PA Systolic Pressure 22 mmHg <40 PA Mean Pressure (WI Velocity) 12 mmHg TV Diastolic Function TV E Peak Velocity 0.59 m/s TV A Peak Velocity 0.37 m/s TV E/A 1.63 0.80-2.00 TV Decel Time 169 ms >=120 TV Annular TDI TV Lateral Elva s' Velocity 10.0 cm/s 9.5-18.7 TV Lateral Elva e' Velocity 6.7 cm/s <7.8 TV E/e' 8.92 2.00-6.00 Aorta Name Value Normal Ascending Aorta Sinus of Valsalva Diameter 3.8 cm 3.1-3.7 Sinus of Valsalva Index 2.01 cm/m2 1.50-1.90 Prox Asc Ao Diameter 3.4 cm 2.6-3.4 Prox Asc Ao Diameter Index 1.80 cm/m2 1.30-1.70 Thoracic Aorta Ao Arch Diameter 2.6 cm Desc Ao Peak Velocity 0.73 m/s Desc Ao Peak Gradient 2 mmHg Aortic Valve Name Value Normal AV Doppler AV Peak Velocity 1.06 m/s <2.00 AV Peak Gradient 5 mmHg AV Area (Cont Eq Ozzy) 2.9 cm2 AV Area Index (Cont Eq Ozzy) 1.51 cm2/m2 AV V1/V2 Ratio 0.86 AV Regurgitation 2D LVOT Area 3.3 cm2 Ventricles Name Value Normal LV Dimensions 2D/MM IVS Diastolic Thickness (2D) 1.3 cm 0.6-1.0 LVID Diastole (2D) 3.6 cm 3.6-5.6 LVIW Diastolic Thickness (2D) 1.2 cm 0.6-1.0 LVID Systole (2D) 2.0 cm 2.5-4.0 LVOT Diameter 2.1 cm LV Mass (2D Cubed) 151.67 g 88.00-224.00 LV Mass Index (2D Cubed) 0.01 g/cm2 0.00-0.01 Relative Wall Thickness (2D) 0.64 LV Fractional Shortening/Ejection Fraction 2D/MM LV Fractional Shortening (2D) 45 % 25-43 LV Diastolic Volume (4C MOD) 52 ml LV Diastolic Volume (2C MOD) 56 ml LV Diastolic Volume (BP MOD) 54 ml 62-150 LV Diastolic Volume Index (BP MOD) 28.37 ml/m2 34.00-74.00 LV Systolic Volume (BP MOD) 22 ml 21-61 LV Systolic Volume Index (BP MOD) 11.68 ml/m2 11.00-31.00 LV EF (BP MOD) 60 % 57-68 LV SV (BP MOD) 31.61 ml RV Dimensions 2D/MM RV Basal Diastolic Dimension 2.8 cm 2.5-4.1 TAPSE 2.0 cm >=1.7 Atria Name Value Normal LA Dimensions LA Area (4C) 13.2 cm2 LA Length (4C) 5.6 cm LA Area (2C) 14.1 cm2 LA Length (2C) 5.4 cm LA Volume (4C A-L) 26.51 ml LA Volume (2C A-L) 31.57 ml LA Volume (BP A-L) 30 ml 18-58 LA Volume Index (BP A-L) 15.62 ml/m2 <=34.00 RA Dimensions RA Area (4C) 11.9 cm2 <=18.0 Final Signed by:DO Gomez Jason D Signed (Electronic Signature):05/30/2023 2:37 p Patient Care team information Care Team Personnel Name: MD Kevin, Sung Johnston Position: Physician - Internal Med Member Role: Primary Care Provider Address: Address: [address] Care Team Related Persons Name: NEDA COTA Address: home No Address Provided
--- OUTSIDE RECORDS SUMMARY | 2023-11-22 11:41 | External Medical Summary | Continuity of Care Document ---
Author Name Unknown Organization [place] [id number] Address [address] [place] [id number] Care Team Providers Care Dust Sampler Name Role Phone KevinSung tracey Vickie Primary Care Physician [phone] Encounter [facility] [id number] Date(s): 11/06/23 - 11/06/23 [facility] [place] [id number] Medicine [address] [place] [id number] Encounter Diagnosis Leg length discrepancy(Discharge Diagnosis) - 11/06/23 Sacroiliitis(Discharge Diagnosis) - 11/06/23 Right lumbar radiculopathy(Discharge Diagnosis) - 11/06/23 Discharge Disposition: Home or Self Care Attending Physician: MAE Stoddard Jolene Marie Allergies, Adverse Reactions, Alerts Substance Reaction Severity Status amoxicillin-clavulanate Diarrhea Severe Acti ve lisinopril Unknown Active Dust sinus congestion Active Mold sinus congestion Active pneumococcal 23-valent vaccine (obsolete) Unknown Active Assessment and Plan Extracted from: Title:Orthopaedics Office Visit Note Author:Rocky garcia PA-C, Jolene Marie Date:11/06/23 1.Leg length discrepancy Patient has about 50% relief since the LESI approximately 6 weeks ago. He denied discussed trying a trial of gabapentin. We discussed risk,benefits as well as dosage and side effects. Patient is agreeable and would like to try this. He will start with 100 mg capsule taking 1 pill 3 times a day x 3-day, increase to 2 capsules3 times a day for 3 days if able to tolerate this he will progress to the prescription that is 300 mg capsules taken 1 3 times a day. We discussed if he would like to be taken off of this once he startedto contact the office and we can taper him off of it. We did discuss risk of seizuresif stopped abruptly. He is having findings ofsacroiliitis on the right side. We discussedtreatment for this. Patient would like to have an injection. Patient will be scheduled for right SI joint injection under fluoroscopic guidance with Dr. Mcmahon. Patient'sa level ASA 2 for upcoming procedure. Patient will follow-up 4 to 6 weeks after the injection and to assess response to gabapentin. He was also provided an orderfor an orthotistfor possible heel lift/shoe lift. We also agreed upon a trial of physical therapy for core strengthening and lower extremity strengtheningwith home exercise training. Patient was advised if any questions or concerns to contact the office sooner. Patient and verbalized understanding and are in agreement with plan 2.Sacroiliitis 3.Right lumbar radiculopathy Immunizations Given and Recorded Vaccine Date Status Refusal Reason influenza virus vaccine, inactivated 09/25/23 Give n influenza virus vaccine, inactivated 1 08/29/22 Gi ines SARS-CoV-2 (COVID-19) mRNA-1273 vaccine 10/31/21 R ecorded SARS-CoV-2 (COVID-19) mRNA-1273 vaccine 03/03/21 R ecorded SARS-CoV-2 (COVID-19) mRNA-1273 vaccine 02/03/21 R ecorded 1Result Comment: Yudi Claudio, [facility] Medications doxazosin 1 mg oral tablet Start: 11/05/23 16:11:00 EST, See Instructions, Disp# 30 tab, Refills: 10, Take 1 tablet by mouth once daily, Pharmacy: [id number] Start Date: 11/05/23 Status: Ordered Dulcolax Stool Softener 100 mg oral capsule Start: 09/29/23 16:15:00 EST, 1 cap, PO, Daily, PRN: as needed for constipation Start Date: 09/29/23 Status: Ordered DULoxetine 60 mg oral delayed release capsule Start: 02/13/23 13:15:00 EDT, 1 cap, PO, Daily, Disp# 90 cap, Refills: 3, Pharmacy: [facility] Start Date: 02/13/23 Stop Date: 02/08/24 Status: Ordered famotidine 40 mg oral tablet Start: 06/13/23 13:10:00 EDT, See Instructions, Disp# 90 tab, Refills: 2, Take 1 tablet by mouth once daily, Pharmacy: [facility] Start Date: 06/13/23 Status: Ordered gabapentin 100 mg oral capsule Start: 11/06/23 11:11:00 EST, 1 cap, PO, tid, Disp# 27 cap, Refills: 0, take 1 cap TID x 3 days then increase to 2 cap TID x 3 days then switch to 300mg dose., Pharmacy: [facility] Start Date: 11/06/23 Status: Ordered gabapentin 300 mg oral capsule Start: 11/06/23 11:11:00 EST, 1 cap, PO, tid, Disp# 90 cap, Refills: 2, Pharmacy: [facility] Start Date: 11/06/23 Stop Date: 02/04/24 Status: Ordered levothyroxine 137 mcg (0.137 mg) oral tablet Start: 05/15/23 13:56:00 EDT, 1 tab, PO, Daily, Disp# 90 tab, Refills: 1, Pharmacy: [facility] Start Date: 05/15/23 Stop Date: 11/11/23 Status: Ordered meclizine 12.5 mg oral tablet Start: 09/29/23 16:13:00 EST, 20 each, TAKE 1 TABLET BY MOUTH THREE TIMES DAILY NEEDED FOR DIZZINESS Start Date: 09/29/23 Status: Ordered multivitamin Start: 10/22/18 11:28:00 EST, 1 tab, PO, Daily Start Date: 10/22/18 Status: Ordered Vardaman Oil Start: 10/22/18 11:27:00 EST, Vardaman Oil, See Instructions, 1000mg po daily Start Date: 10/22/18 Status: Ordered Vitamin D3 2000 intl units oral tablet Start: 10/22/18 11:28:00 EST, 1 tab, PO, Daily Start Date: 10/22/18 Status: Ordered Mental Status 11/06/23 Barriers to Learning one year None evide nt Mandatory Health Literacy Documentation Yes Health Literacy Communication Barriers N ever Primary Language Palauan Problem List Condition Confirmation Course Effective Dates [...] Effective Dates Health Status Clinical Service Informant Right lumbar radiculopathy Discharge Diagnosis 11/06/23 Leg length discrepancy Discharge Diagnosis 11/06/23 Sacroiliitis Discharge Diagnosis 11/06/23 Procedures Procedure Date Related Diagnosis Body Site [...] Status Never smoked cigaret tarik Sex Male Outpatient Note * MAE Stoddard, Hoa Talley: PERFORM Event Display: .Outpt Note Authored Date: [id number] Primary Care Provider MD Kevin, Sung Johnston Chief Complaint follow up LESI, weakness in legs 0 History of Present Illness Patient is an 82-year-old male who is a known patient to the office. He has a history of spinal stenosis with right lower extremity radiculopathy. He is following up status post a right L4-L5LESI on 09/30/2023. He states he has about 50% improvement. He states all the numbnessis not gone in the right lower extremity. He states he still has atherewith activities. He also notesthat he is having morelow back pain and points to the buttock area on the right. He states thisseems to be more bothersome with laying in bed and with walking. He denies any fall or injury. He denies anypain in his groin. He does have a history of having a right ultrasound-guided hip in [facility] on 02/04/2023. He states his legs still feel weak. He is utilizing a walker with ambulating.He is taken ibuprofen and Tylenol with some relief however is not long-lasting. He quantifies his pain as 2/10 current, 0/10 best, 6/10 worse. He denies any fever, chills,redness or drainage from the injection site, chest pain or shortness of breath. Review of Systems Please refer to HPI Physical Exam Patient is seated comfortably in exam chair. He is alert and oriented x 3 no acute distress pleasant and conversive. Upon standingprevious injection site was assessed. Skin is clean, dry, andintact. He haspalpable tenderness over L5-S1 bilaterally and sciatic notch pain on the right.Patient was transition onto exam table. Leg lengthdiscrepancy with right leg being shorter. Negative logroll bilaterally. Negative straight leg raisebilaterally. Sensationwas diminishedsubjectively over the right L4 area this is intact over right L5 and S1. Intact on the left lowerextremity L4-L5 and S1. He has positiveGaenslen maneuver on the right negative on the left. He has muscle tightness with hip range of motion positive Janeth on the right negative on the left. Patient was positioned prone. Positive sacral compressionon the right negative on the left. Patient returned to seated position. Strength bilateral lower extremities 4+/5. Gait is slow and an talgic with walker. Assessment/Plan 1.Leg length discrepancy Patient has about 50% relief since the LESI approximately 6 weeks ago. He denied discussed tryinga trial of gabapentin. We discussed risk,benefits as well as dosage and side effects. Patientis agreeable and would like to try this. He will start with 100 mg capsule taking 1 pill 3 times a day x 3-day, increase to 2 capsules3 times a day for 3 days if able to tolerate this he will progress to the prescription that is 300 mg capsules taken 1 3 times a day. We discussed if he would like to be taken off of this once he startedto contact the office and we can taper him off of it. We did discuss risk of seizuresif stopped abruptly. He is having findings ofsacroiliitis on the right side. We discussedtreatment for this. Patient would like to have an injection. Patient will be scheduled for right SI joint injection under fluoroscopic guidance with Dr. Mcmahon. Patient'sa level ASA 2 for upcoming procedure. Patient will follow-up 4 to 6 weeks after the injection and to assess response to gabapentin. He was also provided an orderfor an orthotistfor possible heel lift/shoe lift. We also agreed upon a trial of physical therapy for core strengtheningand lower extremity strengtheningwith home exercise training. Patient was advised if any questions or concerns to contact the office sooner. Patient and verbalized understanding and are inagreement with plan 2.Sacroiliitis 3.Right lumbar radiculopathy Problem List/Past Medical History Ongoing BPH (benign prostatic hyperplasia) Diarrhea Diplopia Hypothyroidism Leg length discrepancy Leg pain Leg weakness Lumbar stenosis Lumbosacral radiculopathy Mood disorder Myasthenia gravis without exacerbation (disorder) Right hip pain Right lumbar radiculopathy Sacroiliitis Spinal stenosis Procedure/Surgical History Injection (11/25/2022)Hydrogen breath test (03/15/2019)Upper GI endoscopy (01/27/2019)Colonoscopy (07/03/2016)Surgery - NasalTonsillectomy and adenoidectomyCE - Cataract extraction - BilateralHernia repair Medications cholecalciferol(Vitamin D3 2000 intl units oral tablet), 2000 Int_Unit= 1 tab, PO, Daily docusate(Dulcolax Stool Softener 100 mg oral capsule), 100 mg= 1 cap, PO, Daily, PRN doxazosin(doxazosin 1 mg oral tablet), See Instructions DULoxetine(DULoxetine 60 mg oral delayed release capsule), 60 mg= 1 cap, PO, Daily, 3 refills famotidine(famotidine 40 mg oral tablet), See Instructions gabapentin(gabapentin 100 mg oral capsule), 100 mg= 1 cap, PO, tid gabapentin(gabapentin 300 mg oral capsule), 300 mg= 1 cap, PO, tid, 2 refills levothyroxine(levothyroxine 137 mcg (0.137 mg) oral tablet), 137 mcg= 1 tab, PO, Daily, 1 refills meclizine(meclizine 12.5 mg oral tablet) multivitamin, 1 tab, PO, Daily unknown medication(Vardaman Oil), See Instructions Allergies amoxicillin-clavulanate(Severe)Diarrhea Dustsinus congestion [...] due09/25/23and every 1year Due Adult COVID-19 Vaccination due11/06/23Unknown Frequency Adult Social Determinants of Health Screening due11/06/23Unknown Frequency Adult Tdap/Td Vaccine due11/06/23Unknown Frequency Lipid Screening due11/06/23Unknown Frequency Medicare Annual Wellness Visit due11/06/23and every 1year Shingles Vaccine due11/06/23One-time only Due In Future Adult Influenza Vaccine not due until05/17/24and every 1year Body Mass Index not due until09/18/24and every Satisfied(in the past 1 year) Satisfied Adult Influenza Vaccine on09/25/23.Satisfied by LANCE Goss Carli Body Mass Index on09/18/23.Satisfied by LANCE Hernandez Angela M Electronic Signature on File Electronically Reviewed/Signed by: Hoa Stoddard PA-C Author Signature Dt/Tm:11/06/2023 11:49AM Division of Sports Medicine Electronically Reviewed/Signed by: Maxim Mcmahon MD Cosigner Signature Dt/Tm: 11/06/2023 12:45 PM [facility]ader of Orthopaedics & Rehabilitation and Physical Medicine & Rehabilitation Patient Care team information Care Team Personnel Name: MD Brown Michael P Position: Physician - Internal Med Member Role: Primary Care Provider Address: Address: [address] [place] [id number] [place] Care Team Related Persons Name: NEDA COTA Address: home No Address Provided
--- OUTSIDE RECORDS SUMMARY | 2023-11-22 11:41 | External Medical Summary | Continuity of Care Document ---
Author Name Unknown Organization [place] [id number] Address [address] [place] [id number] Care Team Providers Care Guideman Name Role Phone Kevin Sung Vickie Primary Care Physician [phone] [id number] Date(s): 09/18/23 - 09/18/23 [facility] [address] [place] [id number] [facility] Medicine [address] [place] [id number] Encounter Diagnosis Lumbar stenosis(Discharge Diagnosis) - 09/18/23 Right lumbar radiculopathy(Discharge Diagnosis) - 09/18/23 Discharge Disposition: Home or Self Care Attending Physician: MAE Stoddard Jolene Marie Allergies, Adverse Reactions, Alerts Substance Reaction Severity Status Dust sinus congestion Active Mold sinus congestion Active Assessment and Plan Extracted from: Title:Orthopaedics Office Visit Note Author:Rocky garcia PA-C, Jolene Marie Date:09/18/23 1.Lumbar stenosis Patient has a history of havinglumbar stenosis and right lower extremity radiculopathy. He did respond favorably to an injection that he hadalmost 10 months ago. He also has a history of having right hip osteoarthritis and had responded favorably to an injectionunder ultrasound guidance on 02/04. At this time I do feel he has 2 issues going on however he is more bothered by the pain and numbness going into the right lower extremity which I feel iscoming from his back. At this time we mutually agreed upon repeating an injection to his back. Patient will be scheduled for arit paramedian L4-L5 interlaminar epidural steroid injection under fluoroscopic guidance. Patient is a level ASA 1 for upcoming procedure. Patientwas advisedto avoid NSAIDsand aspirin 3 days prior to the injection. He will be reassessed in 4 weeks after the injection to be reassessed. We discussed he maybenefit from ultrasound-guided injection of the right hip. Patient was advised if symptoms change or any concerns or questions to contact the office sooner. Patientand verbalized understanding and are in agreement with plan. 2.Right lumbar radiculopathy Immunizations Given and Recorded Vaccine Date Status Refusal Reason influenza virus vaccine, inactivated 1 08/29/22 Gi ines SARS-CoV-2 (COVID-19) mRNA-1273 vaccine 10/31/21 R ecorded SARS-CoV-2 (COVID-19) mRNA-1273 vaccine 03/03/21 R ecorded SARS-CoV-2 (COVID-19) mRNA-1273 vaccine 02/03/21 R ecorded 1Result Comment: Yudi Claudio CMA Medications diclofenac 1% topical gel Start: 12/26/22 11:12:00 EST, 1 appl, topical, bid, Disp# 100 g, PRN: pain, Pharmacy: [facility] Start Date: 12/26/22 Stop Date: 01/09/23 Status: Ordered doxazosin 1 mg oral tablet Start: 07/17/23 13:46:00 EDT, See Instructions, Disp# 30 tab, Refills: 2, Take 1 tablet by mouth once daily, Pharmacy: [facility] Start Date: 07/17/23 Status: Ordered DULoxetine 60 mg oral delayed release capsule Start: 02/13/23 13:15:00 EDT, 1 cap, PO, Daily, Disp# 90 cap, Refills: 3, Pharmacy: [facility] Start Date: 02/13/23 Stop Date: 02/08/24 Status: Ordered famotidine 40 mg oral tablet Start: 06/13/23 13:10:00 EDT, See Instructions, Disp# 90 tab, Refills: 2, Take 1 tablet by mouth once daily, Pharmacy: [facility] Start Date: 06/13/23 Status: Ordered levothyroxine 137 mcg (0.137 mg) oral tablet Start: 05/15/23 13:56:00 EDT, 1 tab, PO, Daily, Disp# 90 tab, Refills: 1, Pharmacy: [facility] Start Date: 05/15/23 Stop Date: 11/11/23 Status: Ordered multivitamin Start: 10/22/18 11:28:00 EST, 1 tab, PO, Daily Start Date: 10/22/18 Status: Ordered [place] [employer] Start: 10/22/18 11:27:00 EST, [place] [employer], See Instructions, 1000mg po daily Start Date: 10/22/18 Status: Ordered traMADol 50 mg oral tablet Start: 11/11/22 16:30:00 EST, 1 tab, PO, bid, Disp# 10 tab, PRN: as needed for pain, Pharmacy: [facility] Start Date: 11/11/22 Status: Ordered Vitamin D3 2000 intl units oral tablet Start: 10/22/18 11:28:00 EST, 1 tab, PO, Daily Start Date: 10/22/18 Status: Ordered Mental Status 09/18/23 Barriers to Learning one year None evide nt Mandatory Health Literacy Documentation Yes Health Literacy Communication Barriers N ever Primary Language Botswanan Problem List Condition Confirmation Course Effective Dates [...] Service Informant Right lumbar radiculopathy Discharge Diagnosis 09/18/23 Lumbar stenosis Discharge Diagnosis 09/18/23 Procedures Procedure Date Related Diagnosis Body Site [...] Most recent to oldest [Reference Range]: 1 Height 183 cm (09/18/23 9:53 AM) Patient Weight 75.4 kg (09/18/23 9:53 AM) Body Mass Index 22.51 kg/m2 (09/18/23 9:53 AM) Social History Social History Type Response Smoking Status Never smoked cigaret tarik Sex Male Outpatient Note * MAE Stoddard, Hoa Talley: PERFORM Event Display: .Outpt Note Authored Date: Primary Care Provider MD Kevin, Sung Johnston Chief Complaint Low back and hip pain as well as leg pain. Pain History of Present Illness Patient is an 82-year-old male who is accompanied by his . He is a known patient Dr. Mcmahon. He has a history of having lumbar stenosiswith rightlower extremity radiculopathy. He has a history of having a right L4- L5LESI in nd had a 50% relief in his symptoms. He stateshealso has a history of having righthip arthritisand had arightultrasound-guided injection on02/04 which greatly helped his pain. He is here for reassessment. He states he is having back painand numbness that is going down his leg he states it goesinto the thigh and in the inner aspect of his calf. He statesthis seems to be provoked with walkingand if he sitting uprightfor period of time. He does note that he feels like the leg is weaker with ambulating. He is utilizing a roller walker. He denies any falls or injuries. He reports reclining in his chair seems to improve his symptoms. He does not report much groin pain with ambulating. He states he is takeni buprofen on occasion but typically will take acetaminophen which does give him minimal relief. Hestateshe is interested in getting a back injectionor hip injection which ever is needed. He quantifies his pain as 7/10 current, 2/10 Best, 7/10 worse. He denies any fever, chills, sweats,chest pain or shortness of breath. Review of Systems Refer to HPI Physical Exam Vitals & Measurements HT:183cm WT:75.400kg(Dosing) WT:75.4kg BMI:22.51 Is seated comfortably in exam chair. He is alert and oriented x3 no acute distress pleasant and conversive. Upon standing back was inspected skin is normal in color and temperature negative for erythema or edema. He hasno palpable tenderness alonglumbar paraspinals, L4-L5 or S1. Negative for sciatic notch pain. Patient was transition onto exam table. He has right leg is shorter than the left. He has positive Rocker sign bilaterally. Internal rotation is limitedandpain isreportedat end range. He is able to tolerate external rotation. He has a positive straight leg raise on the right negative on the left. Patient returned to seated position. Sensation is subj ectively diminished over L4on the right and is intact at L5-S1 on the right. Sensation is intact overL4-L5 and S1 on the left. Gait is slow and antalgic with rollator walker. Assessment/Plan 1.Lumbar stenosis Patient has a history of havinglumbar stenosis and right lower extremity radiculopathy. He did respond favorably to an injection that he hadalmost 10 months ago. He also has a history of having right hip osteoarthritis and had responded favorably to an injectionunder ultrasound guidance on 02/04. At this time I do feel he has 2 issues going on however he is more bothered by the pain and numbness going into the right lower extremity which I feel iscoming from his back. At this time we mutually agreed upon repeating an injection to his back. Patient will be scheduled for aright paramedian L4-L5 interlaminar epidural steroid injection under fluoroscopic guidance. Patient is a level ASA 1 for upcoming procedure. Patientwas advisedto avoid NSAIDsand aspirin 3 days prior to the injection. He will be reassessed in 4 weeks after the injection to be reassessed. We discussed he maybenefit from ultrasound- guided injection of the right hip. Patient was advisedif symptoms change or any concerns or questions to contact the office sooner. Patientand ve rbalized understanding and are in agreement with plan. 2.Right lumbar radiculopathy Problem List/Past Medical History Ongoing BPH (benign prostatic hyperplasia) Diarrhea Diplopia Hypothyroidism Leg pain Leg weakness Lumbar stenosis Lumbosacral radiculopathy Mood disorder Myasthenia gravis without exacerbation (disorder) Right hip pain Right lumbar radiculopathy Sacroiliitis Spinal stenosis Procedure/Surgical History Injection (11/25/2022)Hydrogen breath test (03/15/2019)Upper GI endoscopy (01/27/2019)Colonoscopy (07/03/2016)Surgery - NasalTonsillectomy and adenoidectomyCE - Cataract extraction - BilateralHernia repair Medications cholecalciferol(Vitamin D3 2000 intl units oral tablet), 2000 Int_Unit= 1 tab, PO, Daily diclofenac topical(diclofenac 1% topical gel), 1 appl, topical, bid, PRN doxazosin(doxazosin 1 mg oral tablet), See Instructions DULoxetine(DULoxetine 60 mg oral delayed release capsule), 60 mg= 1 cap, PO, Daily, 3 refills famotidine(famotidine 40 mg oral tablet), See Instructions levothyroxine(levothyroxine 137 mcg (0.137 mg) oral tablet), 137 mcg= 1 tab, PO, Daily, 1 refills multivitamin, 1 tab, PO, Daily traMADol(traMADol 50 mg oral tablet), 50 mg= 1 tab, PO, bid, PRN unknown medication([place] [employer]), See Instructions Allergies Dustsinus congestion Moldsinus congestion Social History Smoking Status Never smoked cigarettes Tobacco Use:Never smoker Family History Cancer: Mother and Father. Glaucoma: Mother. Hypertension: Brother. Macular disease: Mother. Respiratory disease: Mother. Health Status Family Member(s) Immunizations Vaccine Date Status influenza virus vaccine, inactivated 08/29/2022 Given Comments : Yudi Claudio CMA SARS-CoV-2 (COVID-19) mRNA-1273 vaccine 10/31/2021 Recorded SARS-CoV-2 (COVID-19) mRNA-1273 vaccine 03/03/2021 Recorded SARS-CoV-2 (COVID-19) mRNA-1273 vaccine 02/03/2021 Recorded Recommendations Health Maintenance Pending(in the next year) OverDue Adult Influenza Vaccine due05/17/23and every 1year Due Adult COVID-19 Vaccination due09/18/23Unknown Frequency Adult Tdap/Td Vaccine due09/18/23Unknown Frequency Lipid Screening due09/18/23Unknown Frequency Medicare Annual Wellness Visit due09/18/23and every 1year Pneumococcal Vaccine Older Adults due09/18/23One-time only Shingles Vaccine due09/18/23One-time only Due In Future Falls Plan of Care not due until09/25/23and every 1year Body Mass Index not due until09/17/24and every 1year Satisfied(in the past 1 year) Satisfied Body Mass Index on09/18/23.Satisfied by LANCE Hernandez Angela M Electronic Signature on File Electronically Reviewed/Signed by: Hoa Stoddard PA-C Author Signature Dt/Tm:09/18/2023 10:23AM Division of Sports Medicine Electronically Reviewed/Signed by: Maxim Mcmahon MD Cosigner Signature Dt/Tm: 09/18/2023 11:48 AM Business Continuity Consultant of Orthopaedics & Rehabilitation and Physical Medicine & Rehabilitation Patient Care team information Care Team Personnel Name: MD Kevin, Sung Jhonston Position: Physician - Internal Med Member Role: Primary Care Provider Address: Address: [address] [place] [address] Care Team Related Persons Name: NEDA COTA Address: home No Address Provided
--- NOTE | 2023-11-22 15:48 | History & Physical Report ---
Date of Service November 22, 2023 Assessment & Plan (1) COVID-19: Plan: Dry cough, intermittent fever, SOB starting the evening of 11/21 COVID-positive on arrival is also positive for COVID Nonhypoxic on arrival; SpO2 at 96% at time of admission Isolation precautions in place Guaifenesin 600mg q12h as needed for cough Supplemental oxygen as needed to maintain SpO2 >94% Acetaminophen as needed for pain/fever A.m. CBC, BMP (2) Weakness: Plan: Generalized weakness and bodyaches beginning the morning of 11/22 PT/OT consulted (3) Chronic back pain: Plan: Chronic; stable Patient was previously trialing a course of prednisone for back pain; hold Continue gabapentin (4) Hypothyroidism: Plan: Continue levothyroxine (5) GERD (gastroesophageal reflux disease): Plan: Continue famotidine (6) Depression: Plan: Continue duloxetine Plan Disposition: Obs - Admit to [facility] telemetry Full code Regular diet VTE PPx: Lovenox 40 mg SQ q24h History of Present Illness Primary Care Provider: Sung Brown MD Ronny is an 82-year-old male with PMH of GERD and hypothyroidism. He presented via EMS for SOB, body aches, fever, and sore throat that began the evening of 11/21. COVID-positive on arrival. is also sick with COVID at home. Dry cough started the night of 11/21, then the patient woke up around 0600 with patient reports generalized leg weakness, low-grade fever, and body aches. He does not use supplemental oxygen therapy at home. He has a pulse ox at home, and reports that he checked it today and it was in the low 90s. He uses a cane and walker at home for ambulation. He reports that he is up-to-date on his COVID vaccinations and boosters. He also reports that he has had COVID in the past; 2 years ago. He denies smoking, alcohol use, or tobacco use, and recreational drug use. He was recently started on a course of prednisone for his back, but has not finished it yet. He did not take his morning medications today. Vital stable at time of admission; 96% on RA. ED course: Acetaminophen 1000 mg IV Guaifenesin 600 mg p.o. Albuterol 2 puffs inhalation NSS 1000 mL IV ROS: Patient endorses low-grade fever, sore throat, body aches, generalized weakness, dry cough, chills, sweating, and urinary incontinence (ongoing). Patient denies chest pain, SOB, pleuritic CP, abdominal pain, N/V/D, burning with urination, dysuria, or numbness and tingling going down the arms or legs. Allergies Allergy/AdvReac Type Severity Reaction Status Date / Time No Known Allergies Allergy Verified 11/25/22 13:25 Home Medications Medication Instructions Recorded Confirmed Type cholecalciferol (vitamin D3) 50 2,000 unit PO QAM 01/20/19 11/25/22 History mcg (2,000 unit) capsule (Vitamin D3) levothyroxine 137 mcg tablet 137 mcg PO QAM 01/20/19 11/22/23 History multivitamin 1 tab PO QAM 01/20/19 11/25/22 History azelastine 205.5 mcg (0.15 %) 1 spray intranasal HS 09/26/20 11/22/23 History nasal spray famotidine 40 mg tablet (Pepcid) 40 mg PO HS 08/12/22 11/22/23 History salmon oil 1,000 mg-omega-3 fatty 2 cap PO QAM 09/23/22 11/25/22 History acids 210 mg capsule albuterol sulfate 90 mcg/actuation 2 puff inhalation Q6H PRN cough, 09/26/22 11/22/23 Rx aerosol inhaler (Ventolin HFA) wheeze, shortness of breath #1 inhaler diphenhydramine HCl 25 mg tablet 25 mg PO HS PRN allergies 11/19/22 11/25/22 History duloxetine 20 mg capsule,delayed 60 mg PO HS 11/19/22 11/22/23 History release meclizine 12.5 mg tablet 12.5 mg PO TID PRN dizziness #20 05/23/23 11/22/23 Rx tabs doxazosin 1 mg tablet 1 mg PO DAILY 11/22/23 11/22/23 History gabapentin 300 mg capsule 300 mg PO TID 11/22/23 11/22/23 History prednisone 10 mg tablet 10 mg PO UD 11/22/23 11/22/23 History Past Med/Surg History Medical History (Updated 11/22/23 @ 18:57 by Leo Hu PA-C) Depression GERD (gastroesophageal reflux disease) Hypothyroidism Chronic back pain Pancytopenia Rhabdomyolysis 09/2022?? patient unsure, but was treated at [facility] inpatient for Influenza A. Restless leg syndrome BPH w urinary obs/LUTS History of Mohs micrographic surgery for skin cancer Hx of squamous cell carcinoma of the skin Hx of basal cell carcinoma Pneumothorax partially collapsed right lung -> incidentally found on scans at [facility] and treated with [facility] ~Spring 2020. patient does state he still has sob occasionally, he does monitor his oxygen levels at home and they have been "fine", 94-95% on RA. does not use oxygen. Chronic fatigue unknown cause History of COVID-19 x2 (October 2020 - treated through the emergency room & spring - asymptomatic) no current problems. Chronic sore throat year around -- unknown reason. following with PCP (possibly could be spinal stenosis) Cervical spinal stenosis Idiopathic polyneuropathy Spinal stenosis of lumbar region Impaired gait Vitamin D deficiency Osteoarthritis Spinal stenosis Abnormal gag reflex RESOLVED Weight loss RESOLVED Hearing deficit Anxiety Myasthenia gravis WAS DIAGNOSED INCORRECTLY> DID NOT HAVE THIS Sleep apnea unable to use cpap machine. Surgical History S/P epidural steroid injection LESI Hx of vasectomy History of right inguinal hernia repair History of colonoscopy History of tooth extraction History of tonsillectomy and adenoidectomy History of endoscopic sinus surgery x2 History of bilateral cataract extraction Family History Mother Lung cancer Father Stroke Tremor Other No family history of adverse response to anesthesia Social History Smoking Status: Never smoker Second Hand Exposure: No; Do You Dip or Chew Tobacco: No; Hx Alcohol Use: No Hx Substance Use: No Preferred Language: Mongolian Communication Ability: Effective Oncology Rep Required: No Beliefs That Will Affect Care: None Current Living Situation: Spouse Feels Safe at Home: Yes Assistive Devices: Cane, Glasses, Hearing Aid - Bilateral and Walker Review of Systems Review of Systems: See HPI above Physical Exam Physical Exam: General: no acute distress; pleasant affect; non-toxic appearing; well-nourished ; cooperative HEENT: normocephalic, atraumatic; no scleral icterus; PERRLA w/ EOMs intact; moist mucus membrane; vision and hearing grossly intact Neck: supple; no JVD; no lymphadenopathy; trachea midline Skin: warm, dry without signs of tenting; no cyanosis; no rashes, bruising, lesions, or erythema noted CV: chest wall NTP; RRR; S1/S2 normal; no murmurs/rubs/gallops; pulses intact and symmetric at radial, DP, and PT Lungs: no acute respiratory distress; symmetrical chest wall expansion; clear breath sounds across all lung rodriguez w/o adventitious sounds; no wheezing ABD: Soft, NTP; BS present; no rebound/guarding; no ascites; no distention; negative CVA tenderness MSK: no tics or fasciculations; no edema noted in the LEs b/l Neuro: A&Ox3; normal mood and affect; fluent speech; CN2-12 intact; no focal deficits; sensation grossly intact Results & Data Results & Data Vital Signs (Past 12 Hours) Vital Signs Temp Pulse Resp BP Pulse Ox O2 Del Method 11/22/23 13:13 107 H 11/22/23 11:33 85 19 135/77 98 11/22/23 09:19 97 Room Air 11/22/23 09:11 95 H 11/22/23 09:10 36.6 C 97 H 18 155/94 H 97 Room Air Laboratory Results Abnormal lab results 11/22/23 11/22/23 11/22/23 Range/Units 09:21 18:24 Unknown Neut # (Auto) 7.40 H (1.40-6.50) K/uL BUN 27 H (6-23) mg/dl BUN/Creatinine Ratio 24.5 H (10-20) POC Glucose 102 H (70-99) mg/dl SARS-CoV-2 (PCR) POSITIVE A* (Negative) Diagnostic Findings Chest X-Ray 11/22/23 09:15 XR chest 1V portable CLINICAL HISTORY: Chest pain, nonspecific COMPARISON STUDY: Chest CT November 24, 2020. Chest radiograph May 23, 2023. FINDINGS: Mild elevation of the right hemidiaphragm is unchanged. Lungs are clear. There is no pneumothorax or pleural effusion. Cardiac size is normal. Mediastinal contours are normal. There is no evidence for pulmonary edema. IMPRESSION: No acute cardiopulmonary findings. No change in appearance of the chest. ACT 112: Negative or not required by law. Electronically signed by: Vincent Joya M.D. 11/22/2023 9:40 AM Code Status & VTE Plan Code Status Full code VTE Prophylaxis Plan VTE Prophylaxis will be ordered: Yes PG Care Time/CCT Total # of Minutes Spent Total Time Spent with Patient: Total time spent is greater than 50% in coordination of care (as documented) at patient's floor/unit and/or counseling patient: [place] [address] INT INP/OBS CARE 40MIN Patient Type New History Detailed Exam Detailed Medical Decision Making Low Complexity Diagnoses COVID-19 U07.1 Weakness R53.1 Chronic back pain M54.9; G89.29 Hypothyroidism E03.9 GERD (gastroesophageal reflux disease) K21.9 Depression F32.9
[2023-11-22] MEDS ORDERED: ALBUTEROL HFA 8 GM INHALER INH PRN (16:30)
[2023-11-22] MEDS ORDERED: MECLIZINE 12.5 MG TAB PO PRN (16:30)
[2023-11-22] MEDS ORDERED: ONDANSETRON INJ 2 MG/ML 2 ML VIAL IV PRN (16:30)
[2023-11-22] MEDS ORDERED: guaiFENesin 600 MG TABCR PO PRN (16:30)
[2023-11-22] MEDS ORDERED: ACETAMINOPHEN 325 MG TAB PO PRN (16:30)
[2023-11-22] MEDS: LEVOTHYROXINE SODIUM 137 MCG TABLET PO SCH (18:25)
[2023-11-22] MEDS: ENOXAPARIN INJ 40 MG/0.4 ML SYR SQ SCH (18:39)
[2023-11-22] MEDS: DOXAZOSIN MESYLATE 1 MG TAB PO SCH (18:39)
[2023-11-22] MEDS: DULoxetine HCL 60 MG CAP PO SCH (21:30)
[2023-11-22] MEDS: GABAPENTIN 300 MG CAP PO SCH (21:30)
[2023-11-22] MEDS: FAMOTIDINE 40 MG TABLET PO SCH (21:30)
[2023-11-23 04:10] LABS: Basophils # (auto) 0.03 K/uL (0.00-0.20); Basophils % (auto) 0.5 %; Eosinophils # (auto) 0.02 K/uL (0.00-0.50); Eosinophils % (auto) 0.3 %; Hematocrit (blood only) 38.8 % (42.0-52.0); Immature Granulocytes # (auto) 0.02 K/uL (0.01-0.20); Immature Granulocytes % (auto) 0.3 %; Lymphocytes # (auto) 1.66 K/uL (1.20-3.40); Lymphocytes % (auto) 27.9 %; Mean Corpuscular Hgb Conc 33.5 g/dL (32.0-36.0); Mean Corpuscular Volume 89.6 fL (80.0-100.0); Monocytes # (auto) 0.87 K/uL (0.11-0.59); Monocytes % (auto) 14.6 %; Neutrophils # (auto) 3.36 K/uL (1.40-6.50); Neutrophils % (auto) 56.4 %; Platelet Count 122 K/uL (130-400); RDW Coefficient of Variation 12.8 % (11.5-14.5); RDW Standard Deviation 42.2 fL (36.4-46.3); Red Blood Count 4.33 M/uL (4.70-6.10); White Blood Count 5.96 K/ul (4.8-10.8)
[2023-11-23 04:25] LABS: BUN Creatinine Ratio 31.6 (10-20); Calcium 8.2 mg/dl (8.6-10.3); Creatinine Clr Calc Pharmacy 70.3 ml/min; Est GFR (African American) 97.1 ml/min; Est GFR (Non-African American) 83.8 ml/min; Potassium 3.7 mmol/L (3.5-5.1)
[2023-11-23] MEDS: LEVOTHYROXINE SODIUM 137 MCG TABLET PO SCH (06:46)
[2023-11-23] MEDS: DOXAZOSIN MESYLATE 1 MG TAB PO SCH (08:49)
[2023-11-23] MEDS: GABAPENTIN 300 MG CAP PO SCH ×3 (08:49→20:28)
--- NOTE | 2023-11-23 14:20 | Hospitalist Progress Note ---
Date of Service November 23, 2023 Assessment & Plan (1) COVID-19: Plan: Symptoms started 11/21/23. COVID+ on testing at [facility]. is also positive for COVID. No hypoxia, but he has b/l rales on exam today, and repeat cxr this afternoon with ?right basilar infiltrate. Given his restrictive lung disease and ?neuromuscular etiology of such he is at higher risk of disease progression. Will start Remdesivir, first dose now, for total of up to 5 days. Start dexamethasone 6mg IV daily. Cont airborne isolation. Make Guaifenesin 600mg q12h scheduled rather than prn. Flutter valve + IS. Supplemental oxygen as needed to maintain SpO2 >94%. Low platelets - mild - likely due to his COVID illness. Check a CRP in am. (2) Weakness: Plan: Generalized weakness - 2nd COVID illness PT/OT consulted (3) Chronic back pain: Plan: Chronic; stable Patient was previously trialing a course of prednisone for back pain Dexamethasone for #1 will help his back as well Continue gabapentin (4) Hypothyroidism: Plan: Continue levothyroxine last TSH was 09/2022 repeat in am (5) GERD (gastroesophageal reflux disease): Plan: Continue famotidine (6) Depression: Plan: Continue duloxetine (7) Thrombocytopenia: Plan: likely 2nd to #1 repeat CBC am for stability Plan VTE PPx: Lovenox 40 mg SQ q24h I updated the pt's by phone this evening Admission and Anticipated Discharge Date Admission Date: November 22, 2023 Subjective pt's main complaints - fatigue/weakness and cough surprisingly eating well cough is somewhat productive denies dyspnea has seen pulmonary in the past - those records suggest he has restrictive lung disease - perhaps neuromuscular in etiology??? no h/o COPD to his recollection denies chest pain tele wnl by report Review of Systems Review of Systems: gen - no fevers or chills cv - no orthopnea pulm - no wheezing GI - no N/V or diarrhea Physical Exam Physical Exam: gen - coughing, but NAD mouth - MMM neck - no JVD heart - irregular, s1 s2, no murmur lungs - b/l basilar rales; when he coughs there is a brassy, wheezy, bronchial quality abd - soft NT ND BS+ ext - no edema, pulses 2+ b/l Results & Data Results & Data Vital Signs (Past 12 Hours) Vital Signs Pulse Pulse Resp BP Pulse Ox O2 Del Method 11/23/23 07:22 79 11/23/23 03:05 70 17 121/73 94 Room Air Laboratory Results Laboratory Results - last 24 hr 11/22/23 11/23/23 18:24 03:34 WBC 5.96 RBC 4.33 L Hgb 13.0 L D Hct 38.8 L MCV 89.6 MCH 30.0 MCHC 33.5 RDW Std Deviation 42.2 RDW Coeff of Anita 12.8 Plt Count 122 L MPV 11.0 Immature Gran % (Auto) 0.3 Neut % (Auto) 56.4 Lymph % (Auto) 27.9 [place] % (Auto) 14.6 Eos % (Auto) 0.3 Baso % (Auto) 0.5 Neut # (Auto) 3.36 Lymph # (Auto) 1.66 [place] # (Auto) 0.87 H Eos # (Auto) 0.02 Baso # (Auto) 0.03 Immature Gran # (Auto) 0.02 Sodium 135 L Potassium 3.7 Chloride 106 Carbon Dioxide 22 Anion Gap 7 BUN 24 H Creatinine 0.76 D Est Cr Clr Drug Dosing 70.3 Est GFR ( Amer) 97.1 Est GFR (Non-Af Amer) 83.8 BUN/Creatinine Ratio 31.6 H Glucose 92 POC Glucose 102 H Calcium 8.2 L PG Care Time/CCT Total # of Minutes Spent Total Time Spent with Patient: Total time spent is greater than 50% in coordination of care (as documented) at patient's floor/unit and/or counseling patient: Coding Level of Care Code 57082 SUB INP/OBS CARE 2/35MIN Diagnoses COVID-19 U07.1 Weakness R53.1 Chronic back pain M54.9; G89.29 Hypothyroidism E03.9 GERD (gastroesophageal reflux disease) K21.9 Depression F32.9 Thrombocytopenia D69.6
[2023-11-23] MEDS: guaiFENesin 600 MG TABCR PO SCH (14:33)
--- NOTE | 2023-11-23 14:51 | XRay Report ---
XR chest 1V portable CLINICAL HISTORY: b/l basilar rales, COVID+, pneumonia? COMPARISON STUDY: Chest CT November 2020. Chest radiograph November 22, 2023. FINDINGS: Lung volumes are mildly diminished. No pneumothorax or pleural effusion is present. There i s no consolidation to suggest pneumonia. Linear right lower lung density represent atelectasis. No ev idence for pulmonary edema. IMPRESSION: Mildly diminished lung volumes with right basilar opacity suggestive of atelectasis. No consolidation. ACT 112: Negative or not required by law. Electronically signed by: Vincent Joya M.D. 11/23/2023 2:49 PM
[2023-11-23] MEDS ORDERED: REMDESIVIR 200 MG in SODIUM CHLORIDE 0.9% 210 ML IV STA (17:35)
[2023-11-23] MEDS: dexAMETHasone 6 MG in SYRINGE 0 ML IV SCH (18:25)
[2023-11-23] MEDS: ENOXAPARIN INJ 40 MG/0.4 ML SYR SQ SCH (18:25)
[2023-11-23] MEDS: FAMOTIDINE 40 MG TABLET PO SCH (20:29)
[2023-11-23] MEDS: DULoxetine HCL 60 MG CAP PO SCH (20:30)
--- NOTE | 2023-11-23 22:36 | Electrocardiogram Report ---
Test Reason : Blood Pressure : / mmHG Vent. Rate : 091 BPM Atrial Rate : 000 BPM P-R Int : 240 ms QRS Dur : 060 ms QT Int : 336 ms P-R-T Axes : 000 -05 065 degrees QTc Int : 413 ms Poor data quality, interpretation may be adversely affected Probable Sinus rhythm with 1st degree A-V block with frequent , and consecutive Premature supraventri cular complexes When compared with ECG of 23-MAY-2023 10:09, Premature supraventricular complexes are now Present Confirmed by Toan Delaney ([id number]) on 11/23/2023 10:35:54 PM Referred By: REFERRED SELF Confirmed By:Toan Delaney
--- NOTE | 2023-11-23 22:40 | Electrocardiogram Report ---
Test Reason : Blood Pressure : / mmHG Vent. Rate : 094 BPM Atrial Rate : 108 BPM P-R Int : 000 ms QRS Dur : 070 ms QT Int : 350 ms P-R-T Axes : 061 004 070 degrees QTc Int : 437 ms Probable Sinus rhythm with 1st degree A-V block with frequent , and consecutive Premature supraventri cular complexes Abnormal ECG When compared with ECG of 22-NOV-2023 09:13, No significant change Confirmed by Toan Delaney ([id number]) on 11/23/2023 10:39:30 PM Referred By: REFERRED SELF Confirmed By:Toan Delaney
[2023-11-24] MEDS: guaiFENesin 600 MG TABCR PO SCH ×2 (02:25→15:39)
[2023-11-24 06:11] LABS: Hematocrit (blood only) 40.5 % (42.0-52.0); Hemoglobin 13.6 g/dl (14.0-18.0); Mean Corpuscular Hemoglobin 30.4 pg (25.0-34.0); Mean Corpuscular Hgb Conc 33.6 g/dL (32.0-36.0); Mean Corpuscular Volume 90.6 fL (80.0-100.0); Mean Platelet Volume 11.2 fL (9.4-12.4); Platelet Count 112 K/uL (130-400); RDW Coefficient of Variation 12.6 % (11.5-14.5); RDW Standard Deviation 41.6 fL (36.4-46.3); Red Blood Count 4.47 M/uL (4.70-6.10); White Blood Count 5.55 K/ul (4.8-10.8)
[2023-11-24 06:31] LABS: BUN Creatinine Ratio 22.9 (10-20); C Reactive Protein 6.87 mg/dl (0-0.5); Calcium 8.7 mg/dl (8.6-10.3); Creatinine Clr Calc Pharmacy 50.9 ml/min; Est GFR (African American) 75.2 ml/min; Est GFR (Non-African American) 64.9 ml/min; Potassium 4.8 mmol/L (3.5-5.1)
--- NOTE | 2023-11-24 08:15 | Electrocardiogram Report ---
Test Reason : Blood Pressure : / mmHG Vent. Rate : 085 BPM Atrial Rate : 105 BPM P-R Int : 000 ms QRS Dur : 066 ms QT Int : 362 ms P-R-T Axes : 050 002 066 degrees QTc Int : 430 ms Sinus tachycardia with 2nd degree A-V block (Mobitz I) Abnormal ECG When compared with ECG of 22-NOV-2023 13:32, No significant change was found (prior tracing likely Mobitz I also) Confirmed by Vic Nickerson ([id number] on 11/24/2023 8:14:55 AM Referred By: REFERRED SELF Confirmed By:Vic Nickerson
[2023-11-24] MEDS: LEVOTHYROXINE SODIUM 137 MCG TABLET PO SCH (08:49)
[2023-11-24] MEDS: DOXAZOSIN MESYLATE 1 MG TAB PO SCH (08:50)
[2023-11-24] MEDS: GABAPENTIN 300 MG CAP PO SCH ×2 (08:50→15:39)
--- NOTE | 2023-11-24 10:10 | Hospitalist Progress Note ---
Date of Service November 24, 2023 Assessment & Plan (1) COVID-19: Plan: Came in for dry cough, intermittent fever, and SOB on 11/21; COVID-positive on arrival Non-hypoxic; SpO2 95% on RA on 11/24/2023 CRP elevated at 6.87 He reports considerable improvement on 11/24 with only symptoms being dry cough and hoarseness WBC 9.80--> 5.[address] Guaifenesin 600mg q12h as needed for cough Continue dexamethasone 6 mg IV daily Continue remdesivir x 5 days Supplemental oxygen as needed to maintain SpO2 >94% Acetaminophen as needed for pain/fever A.m. CBC, BMP (2) Weakness: Plan: Generalized weakness and bodyaches beginning the morning of 11/22 PT/OT consulted (3) Chronic back pain: Plan: Chronic; stable Patient was previously trialing a course of prednisone for back pain; hold Continue gabapentin (4) Hypothyroidism: Plan: Continue levothyroxine (5) GERD (gastroesophageal reflux disease): Plan: Continue famotidine (6) Depression: Plan: Continue duloxetine Plan Disposition: Obs - Admit to [facility] telemetry Full code Regular diet VTE PPx: Lovenox 40 mg SQ q24h Admission and Anticipated Discharge Date Admission Date: November 22, 2023 Subjective Patient reports he feels considerably better today and would like to go home. Per patient, cleared by PT/OT for discharge with walker ROS: He endorses hoarseness, dry cough, and mild difficulty swallowing. He denies fever, chills, night sweats, ambulatory dysfunction, headache, dizziness, lightheadedness, SOB, chest pain, pleuritic CP, abdominal pain, N/V/D, or numbness or tingling in UE/LEs bilaterally Review of Systems Review of Systems: See HPI above Physical Exam Physical Exam: General: no acute distress; pleasant affect; non-toxic appearing; well- nourished; cooperative HEENT: normocephalic, atraumatic; no scleral icterus; moist mucus membrane; vision and hearing grossly intact Neck: supple; no lymphadenopathy; trachea midline Skin: warm, dry without signs of tenting; no cyanosis; no rashes, bruising, lesions, or erythema noted CV: chest wall NTP; RRR; S1/S2 normal; no murmurs/rubs/gallops; pulses intact and symmetric at radial, DP, and PT Lungs: no acute respiratory distress; symmetrical chest wall expansion; clear breath sounds across all lung rodriguez w/o adventitious sounds; no wheezing ABD: Soft, NTP; BS present; no rebound/guarding; no distention MSK: no tics or fasciculations; no edema noted in the LEs b/l, nonerythematous Neuro: A&Ox3; normal mood and affect; fluent speech; no focal deficits; sensation grossly intact in LE B/L Results & Data Results & Data Vital Signs (Past 12 Hours) Vital Signs Pulse Pulse Resp BP Pulse Ox O2 Del Method 11/24/23 00:00 79 18 128/69 95 Room Air 11/23/23 23:20 91 H Laboratory Results Abnormal lab results 11/24/23 Range/Units 05:19 RBC 4.47 L (4.70-6.10) M/uL Hgb 13.6 L (14.0-18.0) g/dl Hct 40.5 L (42.0-52.0) % Plt Count 112 L (130-400) K/uL BUN 24 H (6-23) mg/dl BUN/Creatinine Ratio 22.9 H (10-20) Glucose 112 H (70-99(Fasting)) mg/dl C-Reactive Protein 6.87 H (0-0.5) mg/dl TSH 0.024 L (0.300-4.500) uIu/ml Diagnostic Findings Chest X-Ray 11/23/23 14:19 XR chest 1V portable CLINICAL HISTORY: b/l basilar rales, COVID+, pneumonia? COMPARISON STUDY: Chest CT November 2020. Chest radiograph November 22, 2023. FINDINGS: Lung volumes are mildly diminished. No pneumothorax or pleural effusion is present. There is no consolidation to suggest pneumonia. Linear right lower lung density represent atelectasis. No evidence for pulmonary edema. IMPRESSION: Mildly diminished lung volumes with right basilar opacity suggestive of atelectasis. No consolidation. ACT 112: Negative or not required by law. Electronically signed by: Vincent Joya M.D. 11/23/2023 2:49 PM PG Care Time/CCT Total # of Minutes Spent Total Time Spent with Patient: Total time spent is greater than 50% in coordination of care (as documented) at patient's floor/unit and/or counseling patient: Coding [place] [address] SUB INP/OBS CARE 12/11MIN Patient Type Established History Comprehensive Exam Comprehensive Medical Decision Making Low Complexity Diagnoses COVID-19 U07.1 Weakness R53.1 Chronic back pain M54.9; G89.29 Hypothyroidism E03.9 GERD (gastroesophageal reflux disease) K21.9 Depression F32.9
[2023-11-24 11:14] LABS: Thyroid Stimulating Hormone 0.024 uIu/ml (0.300-4.500)
[2023-11-24] MEDS ORDERED: Nursing to Pharmacy Communication SCH (15:15)
[2023-11-24] MEDS: dexAMETHasone 6 MG in SYRINGE 0 ML IV SCH (15:39)
[2023-11-24] MEDS ORDERED: REMDESIVIR 100 MG in SODIUM CHLORIDE 0.9% 230 ML IV SCH (20:00)
--- NOTE | 2023-11-24 20:38 | Discharge Summary ---
Date of Service November 24, 2023 Admission HPI Per Admitting Provider Ronny is an 82-year-old male with PMH of GERD and hypothyroidism. He presented via EMS for SOB, body aches, fever, and sore throat that began the evening of 11/21. COVID-positive on arrival. is also sick with COVID at home. Dry cough started the night of 11/21, then the patient woke up around 0600 with patient reports generalized leg weakness, low-grade fever, and body aches. He does not use supplemental oxygen therapy at home. He has a pulse ox at home, and reports that he checked it today and it was in the low 90s. He uses a cane and walker at home for ambulation. He reports that he is up-to-date on his COVID vaccinations and boosters. He also reports that he has had COVID in the past; 2 years ago. He denies smoking, alcohol use, or tobacco use, and recreational drug use. He was recently started on a course of prednisone for his back, but has not finished it yet. He did not take his morning medications today. Vital stable at time of admission; 96% on RA. ED course: Acetaminophen 1000 mg IV Guaifenesin 600 mg p.o. Albuterol 2 puffs inhalation NSS 1000 mL IV ROS: Patient endorses low-grade fever, sore throat, body aches, generalized weakness, dry cough, chills, sweating, and urinary incontinence (ongoing). Patient denies chest pain, SOB, pleuritic CP, abdominal pain, N/V/D, burning with urination, dysuria, or numbness and tingling going down the arms or legs. Discharge Exam gen - coughing, but NAD mouth - MMM neck - no JVD heart - irregular, s1 s2, no murmur lungs - b/l basilar rales; when he coughs there is a brassy, wheezy, bronchial quality abd - soft NT ND BS+ ext - no edema, pulses 2+ b/l Discharge Data Allergies Allergy/AdvReac Type Severity Reaction Status Date / Time No Known Allergies Allergy Verified 11/25/22 13:25 Consultations 11/22/23 15:19 ED Decision to Admit Stat Hospital Course (1) COVID-19: Symptoms started 11/21/23. COVID+ on testing at [facility]. is also positive for COVID. No hypoxia, but he has b/l rales on exam today, and repeat cxr this afternoon with ?right basilar infiltrate. Given his restrictive lung disease and ?neuromuscular etiology of such he is at higher risk of disease progression. Will start Remdesivir, first dose now, for total of up to 5 days. Start dexamethasone 6mg IV daily. Cont airborne isolation. Make Guaifenesin 600mg q12h scheduled rather than prn. Flutter valve + IS. Supplemental oxygen as needed to maintain SpO2 >94%. Low platelets - mild - likely due to his COVID illness. Check a CRP in am. (2) Weakness: Generalized weakness - 2nd COVID illness PT/OT consulted (3) Chronic back pain: Chronic; stable Patient was previously trialing a course of prednisone for back pain Dexamethasone for #1 will help his back as well Continue gabapentin (4) Hypothyroidism: Continue levothyroxine last TSH was 09/2022 repeat in am (5) GERD (gastroesophageal reflux disease): Continue famotidine (6) Depression: Continue duloxetine (7) Thrombocytopenia: likely 2nd to #1 repeat CBC am for stability Plan VTE PPx: Lovenox 40 mg SQ q24h I updated the pt's by phone this evening Discharge Plan Discharge Items Patient Disposition: Home - Self-Care Reason For Visit: COVID Illness Discharge Diagnosis: COVID-19 infection Activity: As commented below Activity Comment: gradually increase activities over the next 7-10 days as tolerated Non-emergency contact: Primary Care Provider Call non-emergency contact if: you have any medication questions and your symptoms worsen Follow-up/Referrals: Sung Brown MD [Primary Care Provider] - (within 7-10 days please follow-up with your family doctor ) Diet: Regular Addtl Attending Provider Instructions: Mr Peguero, You were hospitalized due to COVID-19 infection. You developed weakness, cough, fatigue, etc due to your COVID illness. Symptoms improved during your brief hospitalization. Chest x-ray x 2 did not show definitive pneumonia. Your vital signs and oxygen levels were normal while here. Labs were normal except for a mildly decreased platelet count which is a common finding with COVID infection. It is self-limiting and usually the platelet count returns to normal within about a week. The level at which it is currently is still in a very acceptable range. PT/OT saw you in consult and you did very well with them. They felt your stre ngth was satisfactory enough to return home. Recommendations - 1. dexamethasone (steroid) taper - start 11/25/23, take with food. It is a 7-day taper. This is for your respiratory symptoms. The dexamethasone may also help your back pain. 2. please discontinue the prednisone that was previously prescribed. 3. for cough/congestion may use [id number] mucinex up to 1200mg twice daily as desired/as needed. 4. also for cough or wheezing please use your albuterol inhaler - 2 puffs every 4-6 hours for cough/wheeze/shortness of breath. 5. please use the spacer device with your inhaler - see handout. 6. use the flutter valve for the next few days as you recover. Try to work on this device every few hours while awake. 7. isolation period - please plan to isolate (stay at home) until AT LEAST 7 days have elapsed from the FIRST day of your symptoms. If you reach the 7th day and you have had no fever, you are feeling better, and your respiratory symptoms are better you can discontinue isolation. If you don't meet these "criteria" plan to isolate longer until you have satisfied those requirements. 8. Follow-up - see your family doctor within 7-10 days. Return to [facility] if - * you develop fevers over 101 degrees * you have worsening shortness of breath or chest pain * you have extreme weakness * any other concerns It was our pleasure to care for you! Pending Studies at Discharge: No Stand-Alone Forms: My [facility], Smoking Cessation Medications and DC Order Prescriptions: New dexamethasone 2 mg tablet 2 mg PO DIRECTED Qty: 12 0RF Rx Instructions: start 11/25/23, take w/ food: 3 tabs PO QD x 2 days; 2 tabs PO QD x 2 days; 1 tab PO QD x 2 days Continued azelastine 0.15 % (205.5 mcg) spray,non-aerosol 1 spray intranasal HS Rx Instructions: administer into each nostril multivitamin Tablet 1 tab PO QAM levothyroxine 137 mcg Tablet 137 mcg PO QAM cholecalciferol (vitamin D3) [Vitamin D3] 2,000 unit Capsule 2,000 unit PO QAM famotidine [Pepcid] 40 mg Tablet 40 mg PO HS meclizine 12.5 mg tablet 12.5 mg PO TID PRN (Reason: dizziness) Qty: 20 0RF salmon oil-omega-3 fatty acids 1,000-210 mg Capsule 2 cap PO QAM albuterol sulfate [Ventolin HFA] 90 mcg/actuation Hfa Aerosol Inhaler 2 puff inhalation Q6H PRN (Reason: cough, wheeze, shortness of breath) Qty: 1 0RF Rx Instructions: use with plastic spacer device provided by [facility] diphenhydramine HCl 25 mg Tablet 25 mg PO HS PRN (Reason: allergies) duloxetine 20 mg Capsule,Delayed Release(Dr/Ec) 60 mg PO HS doxazosin 1 mg tablet 1 mg PO DAILY gabapentin 300 mg capsule 300 mg PO TID Discontinued prednisone 10 mg tablet 10 mg PO UD Rx Instructions: TAKE 6 TABLETS BY MOUTH ONCE DAILY FOR 1 DAY DECREASE BY 1 TABLET EVERY DAY FOR 6 DAYS THEN STOP Discharge Orders: Discharge Order (Routine); Ordered 11/24/23 Ordered By: Ede Timmons/Other Patient Handouts: Using an Inhaler with a Spacer Admission Data Admit Date/Time: 11/24/23 12:37 Attending Provider: Ede Smith Admit Provider: Ronan Foster Primary Care Provider: Sung Brown Other Providers: Ronan Foster Other Interventions: Discharge Summary Assessment (RN) Last Done: 11/24/23 15:54 Coding Diagnoses COVID-19 U07.1 Weakness R53.1 Chronic back pain M54.9; G89.29 Hypothyroidism E03.9 GERD (gastroesophageal reflux disease) K21.9 Depression F32.9 Thrombocytopenia D69.6
== END 2023-11-24 15:54 | disposition home or self-care (01) ==
LOC: EDINP 09:00 → ED 09:00 → SUATTDRO 16:02 → EDINP 11-24 16:42

== ENCOUNTER 2025-03-16 00:26 | Inpatient (IN) ==
--- NOTE | 2025-03-16 01:21 | Emergency Department Note ---
Impression & Plan Acute bronchitis due to Rhinovirus, Acute dyspnea, Weakness Admit to the [facility] ED Provider Note NAME: KIARA COTA AGE: 84 SEX: Male INFORMANT: Patient and his and daughter ED PROVIDER(S): Citlaly Ventura DO CHIEF COMPLAINT: weakness and fever PLAN: Disposition: Admit to the [facility] MEDICAL DECISION MAKING: this is an 84-year-old male patient who had progressing weakness and fever today. The explains that he was so weak that he could not get up and go to the bathroom. She noted increasing shortness of breath. He underwent a swallowing test approximately 6 months ago which showed he had an epiglottis that did not close completely and he was at risk for aspiration. He has had a cough for the past 1 week. EMS administered a breathing treatment and route he gave Tylenol for the fever. He is feeling somewhat better. Laboratory studies revealed positive rhinovirus on the bio fire test. Leukocytosis with a white count of 15.4. Glucose was elevated at 142. Lactate and procalcitonin were negative. BNP was slightly elevated at 177. Urinalysis was positive for 1+ ketones. On physical exam, I was concerned about the possibility of aspiration pneumonia as the patient had rhonchi in his right lung base and a productive cough. He was treated with IV Unasyn. 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 Vital Signs: reviewed and remarkable for fever Additional History obtained from: The patient's and daughter Chronic Medical/Social Conditions affecting care: Risk for aspiration Differential Diagnosis: Aspiration pneumonia, bronchitis, URI Diagnostics, independently interpreted by me: ECG: Accelerated junctional rhythm at a [address] segment elevation or signs of ischemia. There is no ectopy. Cardiac Monitoring: Sinus tachycardia at 117 Imaging studies: Portable chest x-ray: As per [facility] HPI: 84 year old Male arrives for evaluation of extreme weakness and fever. The patient has had a cough for the past week and has had increasing shortness of breath. The explains that he was so weak tonight that he was unable to get up to go to the bathroom. He was noted to have a fever and a very wet cough. PAST MEDICAL HISTORY: See Below, PAST SURGICAL HISTORY: See Below, SOCIAL HISTORY: See Below, HOME MEDICATIONS: See list ALLERGIES: None VITALS: See Below PHYSICAL EXAMINATION: HEENT: Head - normocephalic and atraumatic. Pupils are equal, round, and reactive to light. Extraocular eye muscles are intact, and sclera are anicteric. Nose - moist nasal mucosa without discharge. Mouth - moist buccal mucosa. Oropharynx is nonerythematous and there is no tonsillar exudate or edema noted. Neck: Supple; no JVD or Heart: Tachycardic rate and regular rhythm. There is a normal S1 and S2 with no murmurs, clicks, or gallops appreciated. Lungs: Rhonchi heard at both lung bases but greater on the right than the left. Diminished breath sounds throughout Abdomen: Soft, completely nontender, nondistended, with good bowel sounds. There are no palpable pulsatile masses or hepatosplenomegaly. There is no guarding, rigidity, or rebound noted. Extremities: No evidence of cyanosis, clubbing, or edema. There are easily palpable peripheral pulses. Skin: Pale, warm and dry with poor turgor and no rashes. Emergency Department treatment: personnel monitor, IV normal saline bolus, Tylenol, IV Unasyn Emergency Department course: The patient was evaluated in room C-7. A complete history and physical was performed including a septic protocol. Upper respiratory bio fire testing was obtained. An order was placed for continuous cardiac monitoring. The patient was in a junctional tachycardia at a rate of 117. A twelve-lead EKG was obtained. Patient was given a dose of Tylenol for his fever. He was bolused with 500 cc of saline as he appeared quite dehydrated. Portable chest x-ray was performed as there was concern for aspiration pneumonia. The patient was given a dose of IV Unasyn. Patient remained hemodynamically stable although he remained quite weak. I discussed the case with the [facility] Hospitalist and they will evaluate for further inpatient care. 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 patient unsure, but was treated at [facility] inpatient for Influenza A. Restless leg syndrome BPH w urinary obs/LUTS History of Mohs micrographic surgery for skin cancer Hx of squamous cell carcinoma of the skin Hx of basal cell carcinoma Pneumothorax partially collapsed right lung -> [facility]ally [facility] and [facility] with [facility] ~Spring 2020. patient does state he still has sob occasionally, he does monitor his oxygen levels at home and they have been "fine", 94-95% on RA. does not use oxygen. Chronic fatigue unknown cause History of COVID-19 x2 (October 2020 - treated through the emergency room & spring - asymptomatic) no current problems. Chronic sore throat year around -- unknown reason. following with PCP (possibly could be spinal stenosis) Cervical spinal stenosis Idiopathic polyneuropathy Spinal stenosis of lumbar region Impaired gait Vitamin D deficiency Osteoarthritis Spinal stenosis Abnormal gag reflex RESOLVED Hearing deficit Anxiety Sleep apnea unable to use cpap machine. Surgical History S/P epidural steroid injection LESI Hx of vasectomy History of right inguinal hernia repair History of colonoscopy History of tooth extraction History of tonsillectomy and adenoidectomy History of endoscopic sinus surgery x2 History of bilateral cataract extraction Family History Mother Lung cancer Father Stroke Tremor Other No family history of adverse response to anesthesia Social History Smoking Status: Never smoker Second Hand Exposure: No; Do You Dip or Chew Tobacco: No; Tobacco Cessation Education Requested by Patient: No Hx Alcohol Use: No Hx Substance Use: No Preferred Language: Uzbek Communication Ability: Effective [employer] Required: No Beliefs That Will Affect Care: None Current Living Situation: Spouse Current Living Situation Comment: Lives at home Other Information That Helps Us Care for You: No Feels Safe at Home: Yes Safety Concerns: Feels Safe At This Time Assistive Devices: None Allergies Allergies Allergy/AdvReac Type Severity Reaction Status Date / Time No Known Allergies Allergy Verified 03/16/25 01:04 Home Meds Home Medications Medication Instructions Recorded Confirmed cholecalciferol (vitamin D3) 50 2,000 unit PO QAM 01/20/19 03/16/25 mcg (2,000 unit) capsule (Vitamin D3) famotidine 40 mg tablet (Pepcid) 40 mg PO DAILY 08/12/22 03/16/25 gabapentin 300 mg capsule 300 mg PO TID 11/22/23 03/16/25 duloxetine 60 mg capsule,delayed 60 mg PO DAILY 11/15/24 03/16/25 release tamsulosin 0.4 mg capsule 0.4 mg PO DAILY 11/15/24 03/16/25 ipratropium bromide 42 mcg (0.06 2 spray intranasal QID PRN Cold 03/16/25 03/16/25 %) nasal spray Symptoms levothyroxine 100 mcg tablet 100 mcg PO DAILY 03/16/25 03/16/25 vibegron 75 mg tablet (Gemtesa) 75 mg PO DAILY 03/16/25 03/16/25 Results & Data (ED) Vital Signs Vital Signs - 24 hr 03/16/25 00:33 03/16/25 00:35 03/16/25 00:40 Temperature 37.0 C 39.1 C H Temperature Source Oral Rectal Pulse Rate 116 H 114 H Pulse Rate [Apical] 101 H Pulse Rate from SpO2 Sensor Pulse Rhythm Respiratory Rate 26 H 18 Respiratory Effort / Characteristics Non-Labored Non-Labored Respiratory Depth Normal Normal Respiratory Pattern Regular Regular Blood Pressure 185/94 H Blood Pressure [Right Arm] 148/84 H Blood Pressure Mean 124 Blood Pressure Mean [Right Arm] 105 Pulse Oximetry 92 92 Oxygen Delivery Method Room Air Room Air Oxygen Flow Rate Sepsis Recent Fever Within 48 Hours Yes Sepsis New/Unexplained Change in Mental Status N/A Sepsis Action Taken by Nursing Physician Notified Oxygen Flow Rate - Titration Pulse Oximetry Post Tiitration 03/16/25 01:04 03/16/25 01:04 03/16/25 01:12 Temperature Temperature Source Pulse Rate 98 H Pulse Rate [Apical] Pulse Rate from SpO2 Sensor Pulse Rhythm Regular Respiratory Rate 24 Respiratory Effort / Characteristics Spontaneous Labored Respiratory Depth Respiratory Pattern Blood Pressure Blood Pressure [Right Arm] Blood Pressure Mean Blood Pressure Mean [Right Arm] Pulse Oximetry 92 92 Oxygen Delivery Method Nasal Cannula Room Air Room Air Oxygen Flow Rate 0 Sepsis Recent Fever Within 48 Hours Sepsis New/Unexplained Change in Mental Status Sepsis Action Taken by Nursing Oxygen Flow Rate - Titration 2 Pulse Oximetry Post Tiitration 94 03/16/25 01:27 03/16/25 01:33 03/16/25 02:40 Temperature Temperature Source Pulse Rate 97 H Pulse Rate [Apical] 101 H 92 H Pulse Rate from SpO2 Sensor Pulse Rhythm Respiratory Rate 18 22 Respiratory Effort / Characteristics Non-Labored Non-Labored Respiratory Depth Normal Normal Respiratory Pattern Regular Regular Blood Pressure Blood Pressure [Right Arm] 132/88 120/90 Blood Pressure Mean Blood Pressure Mean [Right Arm] 102 100 Pulse Oximetry 94 94 Oxygen Delivery Method Nasal Cannula Nasal Cannula Oxygen Flow Rate 2 2 Sepsis Recent Fever Within 48 Hours Sepsis New/Unexplained Change in Mental Status Sepsis Action Taken by Nursing Oxygen Flow Rate - Titration Pulse Oximetry Post Tiitration 03/16/25 03:12 Temperature Temperature Source Pulse Rate 91 H Pulse Rate [Apical] Pulse Rate from SpO2 Sensor 91 H Pulse Rhythm Respiratory Rate 23 Respiratory Effort / Characteristics Respiratory Depth Respiratory Pattern Blood Pressure Blood Pressure [Right Arm] Blood Pressure Mean Blood Pressure Mean [Right Arm] Pulse Oximetry 93 Oxygen Delivery Method Nasal Cannula Oxygen Flow Rate 2 Sepsis Recent Fever Within 48 Hours Sepsis New/Unexplained Change in Mental Status Sepsis Action Taken by Nursing Oxygen Flow Rate - Titration Pulse Oximetry Post Tiitration Laboratory Data 03/16/25 00:34 03/16/25 00:34 Lab Results 03/16/25 03/16/25 Range/Units 00:34 01:47 WBC 15.49 H (4.8-10.8) K/ul RBC 4.65 L (4.70-6.10) M/uL Hgb 14.5 (14.0-18.0) g/dl Hct 41.6 L (42.0-52.0) % MCV 89.5 (80.0-100.0) fL MCH 31.2 (25.0-34.0) pg MCHC 34.9 (32.0-36.0) g/dL RDW Std Deviation 42.9 (36.4-46.3) fL RDW Coeff of Anita 13.2 (11.5-14.5) % Plt Count 148 (130-400) K/uL MPV 11.0 (9.4-12.4) fL Immature Gran % (Auto) 0.4 % Neut % (Auto) 81.7 % Lymph % (Auto) 12.3 % [place] % (Auto) 5.3 % Eos % (Auto) 0.2 % Baso % (Auto) 0.1 % Neut # (Auto) 12.65 H (1.40-6.50) K/uL Lymph # (Auto) 1.91 (1.20-3.40) K/uL [place] # (Auto) 0.82 H (0.11-0.59) K/uL Eos # (Auto) 0.03 (0.00-0.50) K/uL Baso # (Auto) 0.02 (0.00-0.20) K/uL Immature Gran # (Auto) 0.06 (0.01-0.20) K/uL Sodium 136 (136-145) mmol/L Potassium 4.0 (3.5-5.1) mmol/L Chloride 108 H (98-107) mmol/L Carbon Dioxide 21 (21-32) mmol/L Anion Gap 7 (3-11) BUN 17 (6-23) mg/dl Creatinine 0.87 (0.6-1.4) mg/dl Est Cr Clr Drug Dosing 62.9 ml/min eGFR 84.03 BUN/Creatinine Ratio 19.5 (10-20) Glucose 142 H (70-99(Fasting)) mg/dl Lactate 0.9 (0.4-2.0) mmol/L Calcium 8.6 (8.6-10.3) mg/dl Phosphorus 2.1 L (2.5-4.9) mg/dl Magnesium 1.7 (1.7-2.4) mg/dl Total Bilirubin 0.8 (0.2-1.0) mg/dl Direct Bilirubin 0.2 (0-0.2) mg/dl AST 14 (13-39) U/L ALT 9 (7-52) U/L Alkaline Phosphatase 65 (34-104) U/L Troponin I High Sens 13.2 (0-20) pg/ml B-Natriuretic Peptide 177 H (0-100) pg/ml Total Protein 6.7 (6.0-8.3) gm/dl Albumin 3.9 (3.4-5.0) gm/dl Procalcitonin 0.03 (0-0.5) ng/ml Urine Color Yellow Urine Appearance Clear (Clear) Urine pH 6.0 (4.5-7.5) Ur Specific [place] 1.018 (1.000-1.030) Urine Protein Negative (Negative) Urine Glucose (UA) Negative (Negative) Urine Ketones 1+ H (Negative) Urine Blood Negative (Negative) Urine Nitrite Negative (Negative) Urine Bilirubin Negative (Negative) Urine Urobilinogen Negative (Negative) Ur Leukocyte Esterase Negative (Negative) Adenovirus (PCR) Not Detected (NotDetected) B. pertussis DNA (PCR) Not Detected (NotDetected) B.parapertussis DNA PCR Not Detected (NotDetected) C. pneumoniae DNA (PCR) Not Detected (NotDetected) Coronavirus OC43 (PCR) Not Detected (NotDetected) Coronavirus HKU1 (PCR) Not Detected (NotDetected) Coronavirus 229E (PCR) Not Detected (NotDetected) SARS-CoV-2 (PCR) Not Detected (NotDetected) Coronavirus NL63 (PCR) Not Detected (NotDetected) Human Metapneumovir PCR Not Detected (NotDetected) Influenza Type A (PCR) Not Detected (NotDetected) Influenza Type B (PCR) Not Detected (NotDetected) M. pneumoniae (PCR) Not Detected (NotDetected) Parainfluenza 1 (PCR) Not Detected (NotDetected) Parainfluenza 2 (PCR) Not Detected (NotDetected) Parainfluenza 3 (PCR) Not Detected (NotDetected) Parainfluenza 4 (PCR) Not Detected (NotDetected) RSV (PCR) Not Detected (NotDetected) Entero/Rhino (PCR) DETECTED A (NotDetected) Administered Medications Duloxetine HCl (Duloxetine Hcl 60 Mg Cap) 60 mg PO DAILY LUPE Stop: 04/15/25 08:59 Last Admin: 03/16/25 08:21 Dose: 60 mg Documented By: SHRUTI Enoxaparin Sodium (Enoxaparin Inj 40 Mg/0.4 Ml Syr) 40 mg SQ Q24H LUPE Stop: 04/15/25 08:59 Last Admin: 03/16/25 08:18 Dose: 40 mg Documented By: SHRUTI Famotidine (Famotidine 40 Mg Tablet) 40 mg PO DAILY LUPE Stop: 04/15/25 08:59 Last Admin: 03/16/25 08:21 Dose: 40 mg Documented By: SHRUTI Gabapentin (Gabapentin 300 Mg Cap) 300 mg PO TID LUPE Stop: 04/15/25 08:59 Last Admin: 03/16/25 13:46 Dose: 300 mg Documented By: Admin: 03/16/25 08:20 Dose: 300 mg Documented By: SHRUTI Guaifenesin (Guaifenesin 600 Mg Tabcr) 600 mg PO Q12 LUPE Stop: 04/15/25 08:59 Last Admin: 03/16/25 08:20 Dose: 600 mg Documented By: SHRUTI Levothyroxine Sodium (Levothyroxine Sodium 100 Mcg Tablet) 100 mcg PO DAILYBB LPUE Stop: 04/15/25 06:29 Last Admin: 03/16/25 05:42 Dose: 100 mcg Documented By: FELICITY Tamsulosin HCl (Tamsulosin Hcl 0.4 Mg Cap) 0.4 mg PO DAILY LUPE Stop: 04/15/25 08:59 Last Admin: 03/16/25 08:20 Dose: 0.4 mg Documented By: SHRUTI Vibegron (Vibegron 75 Mg Tab) 75 mg PO DAILY LUPE Stop: 04/15/25 08:59 Last Admin: 03/16/25 08:20 Dose: 75 mg Documented By: SHRUTI Discontinued Medications Acetaminophen (Acetaminophen 500 Mg Tab) 1,000 mg PO NOW STA Stop: 03/16/25 01:53 Last Admin: 03/16/25 01:57 Dose: 1,000 mg Documented By: OTILIA Ampicillin Sodium/Sulbactam Sodium (Unasyn) 3,000 mg in 100 mls @ 200 mls/hr IV NOW STA Stop: 03/16/25 02:21 Last Infusion: 03/16/25 03:10 Dose: Infused Documented By: Admin: 03/16/25 01:57 Dose: 200 mls/hr Documented By: OTILIA Sodium Chloride (Nss) 500 mls @ 999 mls/hr IV .Q31M ONE Stop: 03/16/25 02:28 Last Infusion: 03/16/25 03:45 Dose: Infused Documented By: Admin: 03/16/25 03:10 Dose: 999 mls/hr Documented By: OTILIA Discharge Plan Visit Data Chief Complaint: Shortness of Breath/Dyspnea Stated Complaint: breathing difficulty, weakness ED Provider: Citlaly Ventura Discharge Problem: Acute bronchitis due to Rhinovirus, Acute dyspnea, Weakness Patient Disposition: Admitted As Inpatient Discharge Instructions Interventions: ED Discharge Assessment Last Done: 03/16/25 03:44
[2025-03-16 01:27] LABS: Appearance Urine Clear (Clear); Bilirubin Urine Negative (Negative); Blood Urine Negative (Negative); Color Urine Yellow; Glucose Urine UA Negative (Negative); Ketones Urine 1+ (Negative); Leukocyte Esterase Urine Negative (Negative); Nitrite Urine Negative (Negative); Protein Urine Negative (Negative); Specific Gravity Urine 1.018 (1.000-1.030); Urobilinogen Urine Negative (Negative)
[2025-03-16 01:30] LABS: Basophils # (auto) 0.02 K/uL (0.00-0.20); Basophils % (auto) 0.1 %; Eosinophils # (auto) 0.03 K/uL (0.00-0.50); Eosinophils % (auto) 0.2 %; Hematocrit (blood only) 41.6 % (42.0-52.0); Hemoglobin 14.5 g/dl (14.0-18.0); Immature Granulocytes # (auto) 0.06 K/uL (0.01-0.20); Immature Granulocytes % (auto) 0.4 %; Lymphocytes # (auto) 1.91 K/uL (1.20-3.40); Lymphocytes % (auto) 12.3 %; Mean Corpuscular Hemoglobin 31.2 pg (25.0-34.0); Mean Corpuscular Hgb Conc 34.9 g/dL (32.0-36.0); Mean Corpuscular Volume 89.5 fL (80.0-100.0); Monocytes # (auto) 0.82 K/uL (0.11-0.59); Monocytes % (auto) 5.3 %; Neutrophils # (auto) 12.65 K/uL (1.40-6.50); Neutrophils % (auto) 81.7 %; Platelet Count 148 K/uL (130-400); RDW Coefficient of Variation 13.2 % (11.5-14.5); RDW Standard Deviation 42.9 fL (36.4-46.3); Red Blood Count 4.65 M/uL (4.70-6.10); White Blood Count 15.49 K/ul (4.8-10.8)
[2025-03-16 01:34] LABS: Albumin Level 3.9 gm/dl (3.4-5.0); Bilirubin Direct 0.2 mg/dl (0-0.2); Bilirubin,Total 0.8 mg/dl (0.2-1.0); Calcium 8.6 mg/dl (8.6-10.3); Magnesium 1.7 mg/dl (1.7-2.4)
[2025-03-16 01:40] LABS: BUN Creatinine Ratio 19.5 (10-20); Creatinine Clr Calc Pharmacy 62.9 ml/min; Total Protein 6.7 gm/dl (6.0-8.3)
[2025-03-16 01:44] LABS: Troponin I High Sensitivity 13.2 pg/ml (0-20)
[2025-03-16] MEDS: ACETAMINOPHEN 500 MG TAB PO STA (01:57)
[2025-03-16] MEDS: AMPICILLIN/SULBACTAM SOD 3,000 MG/100 ML BAG IV STA (01:57)
[2025-03-16 03:05] LABS: Adenovirus PCR Not Detected (NotDetected); Bordetella parapertussis PCR Not Detected (NotDetected); Bordetella pertussis PCR Not Detected (NotDetected); Chlamydia pneumoniae PCR Not Detected (NotDetected); Coronavirus 229E PCR Not Detected (NotDetected); Coronavirus CoV-2 (COVID19)PCR Not Detected (NotDetected); Coronavirus HKU1 PCR Not Detected (NotDetected); Coronavirus NL63 PCR Not Detected (NotDetected); Coronavirus OC43PCR Not Detected (NotDetected); Human Metapneumovirus PCR Not Detected (NotDetected); Influenza A PCR Not Detected (NotDetected); Influenza B PCR Not Detected (NotDetected); Mycoplasma pneumoniae PCR Not Detected (NotDetected); Parainfluenza Virus 1 PCR Not Detected (NotDetected); Parainfluenza Virus 2 PCR Not Detected (NotDetected); Parainfluenza Virus 3 PCR Not Detected (NotDetected); Parainfluenza Virus 4 PCR Not Detected (NotDetected); Respiratory Syncytial VirusPCR Not Detected (NotDetected); Rhinovirus/Enterovirus PCR DETECTED (NotDetected)
[2025-03-16] MEDS: SODIUM CHLORIDE 0.9% 500 ML IV ONE (03:10)
--- NOTE | 2025-03-16 03:14 | XRay Report ---
EXAM: XR chest 1V portable CLINICAL HISTORY: Sepsis. TECHNIQUE: An X-ray image of the chest is obtained in AP projection. COMPARISON: 11/23/2023 CR. FINDINGS: Pulmonary Parenchyma: Decrease right lung volume with elevated right diaphragm. (stable). Atlectasis in the right middle lung zone with a thick transverse fissure. No evidence of consolidation, collapse, or focal opacities. No pulmonary nodules are identified. No evidence of pleural effusion or pleural thickening. Heart and Mediastinum: Heart size and shape are normal. No mediastinal widening or masses. No hilar or mediastinal lymphadenopathy. Bony Thorax: Degenerative changes of visualized skeleton. Bony thorax appears intact without fractures or deformities. Soft Tissues: Soft tissues overlying the chest wall are unremarkable. IMPRESSION: 1. Decrease right lung volume with elevated right diaphragm. (stable). 2. Atlectasis in the right middle lung zone with a thick transverse fissure. 3. No interval changes. Electronically signed by Babar Cutler 03-16-2025 02:36 AM
--- NOTE | 2025-03-16 03:22 | History & Physical Report ---
Date of Service March 16, 2025 Assessment & Plan (1) Rhinovirus infection: (2) GERD (gastroesophageal reflux disease): (3) Depression: (4) BPH loc w urin obs/LUTS: Plan 84yo male presenting with cough, fever, SOB. Found to have entero/rhinovirus infection. Hypoxic prior to arrival, doing well on NC at present #Rhinovirus infection - patient with weakness, cough, fever, SOB, hypoxic on room air upon arrival. Likely secondary to rhinovirus infection. CXR does not suggest bacterial PNA -Admit to medical -Continue supplemental O2 -Tylenol PRN -Mucinex BID -Zofran PRN -Albuterol PRN -Flutter valve and incentive spirometry #Weakness - likely secondary to acute illness -Check Mg and PO4, replete as needed -Maintain Fall Precautions -PT/OT evaluations #Depression -Continue Duloxetine 60mg po daily #Hypothyroidism -Continue Synthroid 100mcg po daily History of Present Illness Chief Complaint: weakness, cough and SOB Primary Care Provider: Sung Brown MD Ronny Peguero is an 84yo male presenting with cough, SOB and fever. Patient has had symptoms ongoing for the last several days. His cough brown been productive for yellow sputum. He has had fever as well. Today patient had significant generalized weakness and was unable to get up and ambulate in his home. Patient typically uses a walker and reports that it took him over 9 times to get up to ambulate to the bathroom. He had one episode of diarrhea and some nausea as well. Otherwise denies chest pain, palpitations, abdominal pain, urinary symptoms Patient placed on supplemental O2 by EMS prior to arrival Presently saturating 93% on 3L Allergies Allergy/AdvReac Type Severity Reaction Status Date / Time No Known Allergies Allergy Verified 03/16/25 01:04 Home Medications Medication Instructions Recorded Confirmed Type cholecalciferol (vitamin D3) 50 2,000 unit PO QAM 01/20/19 03/16/25 History mcg (2,000 unit) capsule (Vitamin D3) famotidine 40 mg tablet (Pepcid) 40 mg PO DAILY 08/12/22 03/16/25 History gabapentin 300 mg capsule 300 mg PO TID 11/22/23 03/16/25 History duloxetine 60 mg capsule,delayed 60 mg PO DAILY 11/15/24 03/16/25 History release tamsulosin 0.4 mg capsule 0.4 mg PO DAILY 11/15/24 03/16/25 History ipratropium bromide 42 mcg (0.06 2 spray intranasal QID PRN Cold 03/16/25 03/16/25 History %) nasal spray Symptoms levothyroxine 100 mcg tablet 100 mcg PO DAILY 03/16/25 03/16/25 History vibegron 75 mg tablet (Gemtesa) 75 mg PO DAILY 03/16/25 03/16/25 History Past Med/Surg History Problem List (Updated 03/16/25 @ 03:42 by Afua Joyner DO) Rhinovirus infection BPH loc w urin obs/LUTS Urinary symptom or sign 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 patient unsure, but was treated at [facility] inpatient for Influenza A. Restless leg syndrome BPH w urinary obs/LUTS History of Mohs micrographic surgery for skin cancer Hx of squamous cell carcinoma of the skin Hx of basal cell carcinoma Pneumothorax partially collapsed right lung -> incidentally found on scans at [facility] and treated with [facility] ~Spring 2020. patient does state he still has sob occasion ally, he does monitor his oxygen levels at home and they have been "fine", 94-95% on RA. does not use oxygen. Chronic fatigue unknown cause History of COVID-19 x2 (October 2020 - treated through the emergency room & spring - asymptomatic) no current problems. Chronic sore throat year around -- unknown reason. following with PCP (possibly could be spinal stenosis) Cervical spinal stenosis Idiopathic polyneuropathy Spinal stenosis of lumbar region Impaired gait Vitamin D deficiency Osteoarthritis Spinal stenosis Abnormal gag reflex RESOLVED Hearing deficit Anxiety Sleep apnea unable to use cpap machine. Surgical History S/P epidural steroid injection LESI Hx of vasectomy History of right inguinal hernia repair History of colonoscopy History of tooth extraction History of tonsillectomy and adenoidectomy History of endoscopic sinus surgery x2 History of bilateral cataract extraction Family History Mother Lung cancer Father Stroke Tremor Other No family history of adverse response to anesthesia Social History Smoking Status: Never smoker Second Hand Exposure: No; Do You Dip or Chew Tobacco: No; Hx Alcohol Use: No Hx Substance Use: No Preferred Language: Japanese Communication Ability: Effective Mri Ct Tech Required: No Beliefs That Will Affect Care: None Current Living Situation: Spouse Current Living Situation Comment: Lives at home Feels Safe at Home: Yes Assistive Devices: Walker Review of Systems Review of Systems: All systems reviewed & are unremarkable except as noted in HPI & below Physical Exam Physical Exam: General: patient resting comfortably, NAD, non-toxic in appearance, AA&O x 4 Skin: warm, dry, intact, no rashes or lesions HEENT: NC/AT, PERRL, EOMI, anicteric sclera, conjunctiva without injection, external ear normal to inspection and nontender, nares patent, moist mucus membranes, dentition intact, no oropharyngeal lesions, neck supple, trachea midline, no LAD, no thyromegaly, no JVD Heart: +S1/S2, regular, no m/r/g Lungs: equal air entry bilaterally, no rales/rhonchi/wheezes Abd: +BS, soft, NT/ND, no masses/organomegaly/ascites Ext: warm, 2+ pulses in UE/LE bilaterally, no clubbing/cyanosis or edema Neuro: nonfocal, patient AA&O x 4, speech intact, no facial droop, moving all extremities on command with equal strength 5/5 Results & Data Results & Data Vital Signs (Past 12 Hours) Vital Signs Temp Pulse Pulse Resp BP BP Pulse Ox 03/16/25 02:40 92 H 22 120/90 94 03/16/25 01:33 97 H 03/16/25 01:27 101 H 18 132/88 94 03/16/25 01:12 98 H 24 92 03/16/25 01:04 92 03/16/25 01:04 03/16/25 00:40 39.1 C H 101 H 18 148/84 H 92 03/16/25 00:35 114 H 03/16/25 00:33 37.0 C 116 H 26 H 185/94 H 92 O2 Del Method O2 Flow Rate 03/16/25 02:40 Nasal Cannula 2 03/16/25 01:33 03/16/25 01:27 Nasal Cannula 2 03/16/25 01:12 Room Air 03/16/25 01:04 Room Air 0 03/16/25 01:04 Nasal Cannula 03/16/25 00:40 Room Air 03/16/25 00:35 03/16/25 00:33 Room Air Laboratory Results Laboratory Results WBC 15.49 K/ul (4.8-10.8) H 03/16/25 00:34 RBC 4.65 M/uL (4.70-6.10) L 03/16/25 00:34 Hgb 14.5 g/dl (14.0-18.0) 03/16/25 00:34 Hct 41.6 % (42.0-52.0) L 03/16/25 00:34 MCV 89.5 fL (80.0-100.0) 03/16/25 00:34 MCH 31.2 pg (25.0-34.0) 03/16/25 00:34 MCHC 34.9 g/dL (32.0-36.0) 03/16/25 00:34 RDW Std Deviation 42.9 fL (36.4-46.3) 03/16/25 00:34 RDW Coeff of Anita 13.2 % (11.5-14.5) 03/16/25 00:34 Plt Count 148 K/uL (130-400) 03/16/25 00:34 MPV 11.0 fL (9.4-12.4) 03/16/25 00:34 Immature Gran % (Auto) 0.4 % 03/16/25 00:34 Neut % (Auto) 81.7 % 03/16/25 00:34 Lymph % (Auto) 12.3 % 03/16/25 00:34 [place] % (Auto) 5.3 % 03/16/25 00:34 Eos % (Auto) 0.2 % 03/16/25 00:34 Baso % (Auto) 0.1 % 03/16/25 00:34 Neut # (Auto) 12.65 K/uL (1.40-6.50) H 03/16/25 00:34 Lymph # (Auto) 1.91 K/uL (1.20-3.40) 03/16/25 00:34 [place] # (Auto) 0.82 K/uL (0.11-0.59) H 03/16/25 00:34 Eos # (Auto) 0.03 K/uL (0.00-0.50) 03/16/25 00:34 Baso # (Auto) 0.02 K/uL (0.00-0.20) 03/16/25 00:34 Immature Gran # (Auto) 0.06 K/uL (0.01-0.20) 03/16/25 00:34 Sodium 136 mmol/L (136-145) 03/16/25 00:34 Potassium 4.0 mmol/L (3.5-5.1) 03/16/25 00:34 Chloride 108 mmol/L (98-107) H 03/16/25 00:34 Carbon Dioxide 21 mmol/L (21-32) 03/16/25 00:34 Anion Gap 7 (3-11) 03/16/25 00:34 BUN 17 mg/dl (6-23) 03/16/25 00:34 Creatinine 0.87 mg/dl (0.6-1.4) 03/16/25 00:34 Est Cr Clr Drug Dosing 62.9 ml/min 03/16/25 00:34 eGFR 84.03 03/16/25 00:34 BUN/Creatinine Ratio 19.5 (10-20) 03/16/25 00:34 Glucose 142 mg/dl (70-99(Fasting)) H 03/16/25 00:34 Lactate 0.9 mmol/L (0.4-2.0) 03/16/25 01:47 Calcium 8.6 mg/dl (8.6-10.3) 03/16/25 00:34 Magnesium 1.7 mg/dl (1.7-2.4) 03/16/25 00:34 Total Bilirubin 0.8 mg/dl (0.2-1.0) 03/16/25 00:34 Direct Bilirubin 0.2 mg/dl (0-0.2) 03/16/25 00:34 AST 14 U/L (13-39) 03/16/25 00:34 ALT 9 U/L (7-52) 03/16/25 00:34 Alkaline Phosphatase 65 U/L (34-104) 03/16/25 00:34 Troponin I High Sens 13.2 pg/ml (0-20) 03/16/25 00: B-Natriuretic Peptide 177 pg/ml (0-100) H 03/16/25 00:34 Total Protein 6.7 gm/dl (6.0-8.3) 03/16/25 00:34 Albumin 3.9 gm/dl (3.4-5.0) 03/16/25 00:34 Procalcitonin 0.03 ng/ml (0-0.5) 03/16/25 00:34 Urine Color Yellow 03/16/25 00:34 Urine Appearance Clear (Clear) 03/16/25 00: Urine pH 6.0 (4.5-7.5) 03/16/25 00:34 Ur Specific [place] 1.018 (1.000-1.030) 03/16/25 00:34 Urine Protein Negative (Negative) 03/16/25 00:34 Urine Glucose (UA) Negative (Negative) 03/16/25 00: Urine Ketones 1+ (Negative) H 03/16/25 00:34 Urine Blood Negative (Negative) 03/16/25 00:34 Urine Nitrite Negative (Negative) 03/16/25 00: Urine Bilirubin Negative (Negative) 03/16/25 00: Urine Urobilinogen Negative (Negative) 03/16/25 00: Ur Leukocyte Esterase Negative (Negative) 03/16/25 00:34 Adenovirus (PCR) Not Detected (NotDetected) 03/16/25 00:34 B. pertussis DNA (PCR) Not Detected (NotDetected) 03/16/25 00:34 B.parapertussis DNA PCR Not Detected (NotDetected) 03/16/25 00:34 C. pneumoniae DNA (PCR) Not Detected (NotDetected) 03/16/25 00:34 Coronavirus OC43 (PCR) Not Detected (NotDetected) 03/16/25 00:34 Coronavirus HKU1 (PCR) Not Detected (NotDetected) 03/16/25 00:34 Coronavirus 229E (PCR) Not Detected (NotDetected) 03/16/25 00:34 SARS-CoV-2 (PCR) Not Detected (NotDetected) 03/16/25 00:34 Coronavirus NL63 (PCR) Not Detected (NotDetected) 03/16/25 00:34 Human Metapneumovir PCR Not Detected (NotDetected) 03/16/25 00:34 Influenza Type A (PCR) Not Detected (NotDetected) 03/16/25 00:34 Influenza Type B (PCR) Not Detected (NotDetected) 03/16/25 00:34 M. pneumoniae (PCR) Not Detected (NotDetected) 03/16/25 00:34 Parainfluenza 1 (PCR) Not Detected (NotDetected) 03/16/25 00:34 Parainfluenza 2 (PCR) Not Detected (NotDetected) 03/16/25 00:34 Parainfluenza 3 (PCR) Not Detected (NotDetected) 03/16/25 00:34 Parainfluenza 4 (PCR) Not Detected (NotDetected) 03/16/25 00:34 RSV (PCR) Not Detected (NotDetected) 03/16/25 00:34 Entero/Rhino (PCR) DETECTED (NotDetected) A 03/16/25 00:34 Impressions Chest X-Ray 03/16/25 01:12 EXAM: XR chest 1V portable CLINICAL HISTORY: Sepsis. TECHNIQUE: An X-ray image of the chest is obtained in AP projection. COMPARISON: 11/23/2023 CR. FINDINGS: Pulmonary Parenchyma: Decrease right lung volume with elevated right diaphragm. (stable). Atlectasis in the right middle lung zone with a thick transverse fissure. No evidence of consolidation, collapse, or focal opacities. No pulmonary nodules are identified. No evidence of pleural effusion or pleural thickening. Heart and Mediastinum: Heart size and shape are normal. No mediastinal widening or masses. No hilar or mediastinal lymphadenopathy. Bony Thorax: Degenerative changes of visualized skeleton. Bony thorax appears intact without fractures or deformities. Soft Tissues: Soft tissues overlying the chest wall are unremarkable. IMPRESSION: 1. Decrease right lung volume with elevated right diaphragm. (stable). 2. Atlectasis in the right middle lung zone with a thick transverse fissure. 3. No interval changes. Electronically signed by Babar Cutler 03-16-2025 02:36 AM Code Status & VTE Plan VTE Prophylaxis Plan VTE Prophylaxis will be ordered: Yes PG Care Time/CCT Total # of Minutes Spent Total Time Spent with Patient: Total time spent is greater than 50% in coordination of care (as documented) at patient's floor/unit and/or counseling patient: Coding Level of Care Code 51877 INT INP/OBS CARE 3/75MIN Diagnoses Rhinovirus infection B34.8 GERD (gastroesophageal reflux disease) K21.9 Depression F32.9 BPH loc w urin obs/LUTS N40.1
[2025-03-16] MEDS ORDERED: IPRATROPIUM BROMIDE NASAL SPRAY 0.06% 15ML PRN (03:56)
[2025-03-16] MEDS ORDERED: ACETAMINOPHEN 325 MG TAB PO PRN (03:56)
[2025-03-16] MEDS ORDERED: ALBUTEROL 0.5% NEB SOLN 2.5 MG/0.5 ML VIAL NEB PRN (03:56)
[2025-03-16] MEDS ORDERED: ONDANSETRON INJ 2 MG/ML 2 ML VIAL IV PRN (03:56)
[2025-03-16 04:47] LABS: Phosphorus 2.1 mg/dl (2.5-4.9)
[2025-03-16] MEDS: LEVOTHYROXINE SODIUM 100 MCG TABLET PO SCH (05:42)
--- OUTSIDE RECORDS SUMMARY | 2025-03-16 06:16 | External Medical Summary | Continuity of Care Document ---
Author Name Unknown Organization [address] Address [address] [place], [place] [address] [place], [place] [id number] Care Team Providers Care Superintendent Service Name Role Phone Sung Brown Primary Care Physician [phone] [id number] Date(s): 02/17/25 - 02/17/[address], [address] [place] [address] [phone] Encounter Diagnosis Sinusitis(Discharge Diagnosis) - 02/17/25 Discharge Disposition: Home or Self Care Attending Physician: MD Brown Michael P Referring Physician: MD Brown Michael P Encounter Type: Clinic Allergies, Adverse Reactions, Alerts Substance Criticality Severity Reaction Reaction Severity Status amoxicillin-clavul anate Unable to assess criticality Severe Diarrhea Active lisinopril Unknown Active Dust sinus congestion Act jose Mold sinus congestion Act jose Assessment and Plan Extracted from: Title:Office Visit Note Author:MD Kevin, Ayo ael P Date:02/17/25 1. Sinusitis Ongoing, continues to have symptoms. Will treat for chronic sinusitis picture with doxycycline 100mg BID for 10 day course. Continue with OTC intranasal corticosteroid treatment. Reach out if symptoms fail to improve or worsen. I have spent 31 minutes in face to face interaction regarding review of ongoing medical conditions, discussion and counseling regarding diagnostic testing, discussion and counseling regarding treatment recommendations, discussion and counseling regarding management recommendations and non face to face time for chart review and documentation. Immunizations Given and Recorded Vaccine Date Status Refusal Reason influenza virus vaccine, inactivated 08/12/24 Barron rded influenza virus vaccine, inactivated 09/25/23 Give n influenza virus vaccine, inactivated 1 08/29/22 Gi ines SARS-CoV-2 (COVID-19) mRNA-vacc - [id number] 08/12/24 Recorded pneumococcal 20-valent conjugate vaccine 06/30/24 Recorded SARS-CoV-2 (COVID-19) mRNA-1273 vaccine 10/31/21 R ecorded SARS-CoV-2 (COVID-19) mRNA-1273 vaccine 03/03/21 R ecorded SARS-CoV-2 (COVID-19) mRNA-1273 vaccine 02/03/21 R ecorded 1Result Comment: Yudi Claudio, [facility] Medications doxycycline hyclate 100 mg oral capsule Start: 02/17/25 1:56:00 PM EDT, 1 cap, PO, bid, Disp# 20 cap, Pharmacy: [facility] Start Date: 02/17/25 Stop Date: 02/27/25 Status: Ordered Quantity: 20.0 Unit: cap Repeat number: 1 Dulcolax Stool Softener 100 mg oral capsule Start: 09/29/23 4:15:00 PM EST, 1 cap, PO, Daily, PRN: as needed for constipation Start Date: 09/29/23 Status: Ordered Repeat number: 1 DULoxetine 60 mg oral delayed release capsule Start: 02/07/25 3:35:00 PM EDT, 1 cap, PO, Daily, Disp# 90 each, Refills: 2, Pharmacy: [facility] Start Date: 02/07/25 Status: Ordered Quantity: 90.0 Unit: each Repeat number: 1 famotidine 40 mg oral tablet Start: 11/29/24 3:31:00 PM EST, 1 tab, PO, Daily, Disp# 90 tab, Refills: 2, Pharmacy: [facility] Start Date: 11/29/24 Status: Ordered Quantity: 90.0 Unit: tab Repeat number: 1 gabapentin 300 mg oral capsule Start: 11/29/24 3:32:00 PM EST, 1 cap, PO, tid, Disp# 90 cap, Refills: 2, Pharmacy: [facility] Start Date: 11/29/24 Status: Ordered Quantity: 90.0 Unit: cap Repeat number: 1 levothyroxine 100 mcg (0.1 mg) oral tablet Start: 06/10/24 7:33:00 AM EDT, 1 tab, PO, Daily, Disp# 90 tab, Refills: 0, Pharmacy: [facility] Start Date: 06/10/24 Stop Date: 09/08/24 Status: Ordered Quantity: 90.0 Unit: tab Repeat number: 1 meclizine 12.5 mg oral tablet Start: 09/29/23 4:13:00 PM EST, 20 each, TAKE 1 TABLET BY MOUTH THREE TIMES DAILY NEEDED FOR DIZZINESS Start Date: 09/29/23 Status: Ordered Repeat number: 1 Motrin Start: 11/13/23 1:08:00 PM EST, 600 mg =, PO, prn not to exceed 3200 mg/day Start Date: 11/13/23 Status: Ordered Repeat number: 1 tamsulosin 0.4 mg oral capsule Start: 12/07/24 3:31:00 PM EST, 1 cap, PO, Daily, Disp# 60 cap, Refills: 4, Pharmacy: [facility] Start Date: 12/07/24 Stop Date: 10/03/25 Status: Ordered Quantity: 60.0 Unit: cap Repeat number: 5 Tylenol 500 mg oral tablet Start: 11/13/23 1:08:00 PM EST, 1 tab, PO, q6h, PRN: as needed for fever Start Date: 11/13/23 Status: Ordered Repeat number: 1 vibegron 75 mg oral tablet Start: 11/22/24 3:37:00 PM EST, 1 tab, PO, Daily, Disp# 30 tab, Refills: 5, Pharmacy: [facility] Start Date: 11/22/24 Status: Ordered Quantity: 30.0 Unit: tab Repeat number: 6 Mental Status 02/17/25 Barriers to Learning one year None evide nt Mandatory Health Literacy Documentation Yes Health Literacy Communication Barriers N ever Primary Language Turkish Problem List Condition Confirmation Course Effective Dates Status H ealth Status Informant Benign prostatic hyperplasia with lower urinary tract symptoms Confirmed 11/18/24 Active Constipation Confirmed Active Diarrhea Confirmed Active Diplopia Confirmed Active Other disorders of lung Confirmed 11/18/24 Active Dysphagia Confirmed Active Right hip pain Confirmed Active Hyperlipidemia, unspecified 1 Confirmed 11/18/24 Active Hypothyroidism Confirmed 11/18/24 Active Sacroiliitis Confirmed Active Leg length discrepancy Confirmed Active Anorexia Confirmed Active Right lumbar radiculopathy Confirmed Active Lumbosacral radiculopathy Confirmed Active Mood disorder Confirmed Active Unspecified mood [affective] disorder Confirmed 11/18/24 Active Other symptoms and signs involving the musculoskeletal system Confirmed 08/12/24 Active Myasthenia gravis without exacerbation (disorder) Confirmed Active Nocturia Confirmed 11/18/24 Active Obstructive sleep apnea Confirmed 11/18/24 Active Oropharyngeal dysphagia Confirmed Active Leg pain Confirmed Active Leg weakness Confirmed Active Spinal stenosis Confirmed 11/18/24 Active Lumbar stenosis Confirmed Active 1Added per Varnishing Unit Operator Review-JW-11/23/24 Diagnosis Diagnosis Type Effective Dates Health Status Clini gilda Service Informant Sinusitis Discharge Diagnosis 02/17/25 Non-Specified Procedures Procedure Date Related Diagnosis Body [...] Most recent to oldest [Reference Range]: 1 Patient Weight 77.3 kg (02/17/25 1:36 PM) Temperature [36.5-37.9 DegC] 37.0 DegC (02/17/25 1:36 PM) Blood Pressure 120/86mmHg (02/17/25 1:38 PM) Social History Social History Type Response Smoking Status Never smoked cigaret tarik Sex Male Sex Representation Male (finding) Medicine Outpt Note * MD Kevin, Sung Johnston: PERFORM Event Display: Medicine Outpt Note Authored Date: [id number] Chief Complaint 3 month f/u. sinus congestion and drainage History of Present Illness Ronny (Nj/Reg) Marielena is an 84 year old male who presents for follow up of his chronic medical conditions. He established care with me on 04/19/22. He is a former patient of Dr. Pablo. He was last seen by me on 11/13/23. Ongoing nasal congestion. This has been going on for months. Did have some improvement when wetrialed OTC intranasal corticosteroid at last visit. Did have increased sedation with second generation oral antihistamine so discontinued this. Unfortunately, symptoms have persisted. Notes increased nasal congestion, productive cough. No fevers. Ongoing discomfort in his legs bilaterally, relatively unchanged though has noted improvement in mobility. Continues to use a walker for ambulatory assistance. Looking to continue to build on thisover the spring/summer months. Problem List: #Spinal Stenosis: with associated lower leg weakness. Previous workup concern for myasthenia gravisdue to associated sxs of fatigue and intermittent double vision. Evaluated by neuromuscular clinic at [facility]. MRI w/ multilevel stenosis of back. He is followed by Dr. Mcmahon, last seen 11/13/22with plan for L3-L4 injection. He is currently taking NSAID PRN for pain. Treated with short coursecorticosteroids (05/23/22) and increased APAP 1000mg TID standing. #Concern for restless leg syndrome: Currently managed with ropinirole 1mg QHS. #Hypothyroidism: currently managed with levothyroxine 100 mcg daily #Hyperlipidemia: previously on medication, though not currently #Obstructive sleep apnea: Not currently on CPAP, difficulty with tolerating a mask #Restrictive lung disease: previously followed by pulmonary through [facility] with right lung restriction; as such has avoided any potential sedation #Mood disorder: switched from sertraline to duloxetine (10/17/22) due to decompensated symptoms, uptitrated to 60mg daily #Difficulty swallowing: he was evaluated by Dr. Whittaker in the past which included EGD without any significant findings. #BPH: started on tamsulosin (05/23/22) due to significant nocturia Review of Systems As per HPI Physical Exam Vitals & Measurements T: 37.0 °C BP: 120/86 SpO2: 96% WT: 77.300 kg (Dosing) WT: 77.3 kg PHQ2 Data (Data Documented on:02/17/2025 13:31) Emotional health assessment POSITIVE PHQ-9 modified for adolescents not completed General: No Acute Distress. Speaking comfortably. Does not appear anxious. Neurologic: Alert and Oriented x 3, able to interact. Psychiatric: Pleasant, normal affect. Respiratory: Good inspiratory effort, no use of accessory muscles. No increased work of breathing. Able to complete full sentences. HEENT: Bulbar conjunctivae clear. No discharge from eyes. No nasal discharge. Lips not swollen. No visible neck masses. Skin: No rash on visible, exposed areas. Assessment/Plan 1. Sinusitis Ongoing, continues to have symptoms. Will treat for chronic sinusitis picture with doxycycline 100mg BID for 10 day course. Continue with OTC intranasal corticosteroid treatment. Reach out if symptoms fail to improve or worsen. I have spent 31 minutes in face to face interaction regarding review of ongoing medical conditions,discussion and counseling regarding diagnostic testing, discussion and counseling regarding treatment recommendations, discussion and counseling regarding management recommendations and non face to face time for chart review and documentation. Problem List/Past Medical History Ongoing Anorexia Benign prostatic hyperplasia with lower urinary tract symptoms Constipation Diarrhea Diplopia Dysphagia Hyperlipidemia, unspecified Hypothyroidism Leg length discrepancy Leg pain Leg weakness Lumbar stenosis Lumbosacral radiculopathy Mood disorder Myasthenia gravis without exacerbation (disorder) Nocturia Obstructive sleep apnea Oropharyngeal dysphagia Other disorders of lung Other symptoms and signs involving the musculoskeletal system Right hip pain Right lumbar radiculopathy Sacroiliitis Spinal stenosis Unspecified mood [affective] disorder Procedure/Surgical History •Injection| Service Date: 11/25/2022•Hydrogen breath test| Service Date: 03/15/2019•Upper GI endoscopy| Service Date: 01/27/2019•Colonoscopy| Service Date: 07/03/2016•Surgery - Nasal•Tonsillectomy and adenoidectomy•CE - Cataract extraction - Bilateral•Hernia repair Medications acetaminophen(Tylenol 500 mg oral tablet), 500 mg= 1 tab, PO, q6h, PRN docusate(Dulcolax Stool Softener 100 mg oral capsule), 100 mg= 1 cap, PO, Daily, PRN doxycycline(doxycycline hyclate 100 mg oral capsule), 100 mg= 1 cap, PO, bid DULoxetine(DULoxetine 60 mg oral delayed release capsule), 1 cap, PO, Daily famotidine(famotidine 40 mg oral tablet), 1 tab, PO, Daily gabapentin(gabapentin 300 mg oral capsule), 1 cap, PO, tid ibuprofen(Motrin), 600 mg, PO levothyroxine(levothyroxine 100 mcg (0.1 mg) oral tablet), 100 mcg= 1 tab, PO, Daily meclizine(meclizine 12.5 mg oral tablet) tamsulosin(tamsulosin 0.4 mg oral capsule), 0.4 mg= 1 cap, PO, Daily, 4 refills vibegron(vibegron 75 mg oral tablet), 75 mg= 1 tab, PO, Daily, 5 refills Allergies amoxicillin-clavulanate(Severe) Diarrhea Dust sinus congestion Mold sinus congestion lisinopril Unknown Social History Smoking Status Never smoked cigarettes Tobacco Use:Never smoker Intake (IView) Smoking History Cigarette smoker: Never smoked cigarettes Tobacco Product Use: Never used other tobacco products Family History Cancer: Mother and Father. Glaucoma: Mother. Hypertension: Brother. Macular disease: Mother. Respiratory disease: Mother. Health Status Family Member(s) Immunizations Vaccine Date Status influenza virus vaccine, inactivated 08/12/2024 Recorded SARS-CoV-2 (COVID-19) mRNA-vacc - [id number] 08/12/2024 Recorded pneumococcal 20-valent conjugate vaccine 06/30/2024 Recorded influenza virus vaccine, inactivated 09/25/2023 Given influenza virus vaccine, inactivated 08/29/2022 Given Comments : Yudi Claudio CMA SARS-CoV-2 (COVID-19) mRNA-1273 vaccine 10/31/2021 Recorded SARS-CoV-2 (COVID-19) mRNA-1273 vaccine 03/03/2021 Recorded SARS-CoV-2 (COVID-19) mRNA-1273 vaccine 02/03/2021 Recorded Recommendations Health Maintenance Pending (in the next year) [place] Plan of Care due 09/25/23 and every 1 year Due Adult Social Determinants of Health Screening due 02/17/25 Unknown Frequency Adult Tdap/Td Vaccine due 02/17/25 Unknown Frequency Medicare Annual Wellness Visit due 02/17/25 and every 1 year Shingles Vaccine due 02/17/25 One-time only Due In Future Adult Influenza Vaccine not due until 05/17/25 and every 1 year Satisfied (in the past 1 year) Satisfied Adult Influenza Vaccine on 08/12/24. Satisfied by CHERYL Santos Donna Body Mass Index on 11/18/24. Satisfied by LANCE Couch Angela Pneumococcal Vaccine Older Adults on 06/30/24. Satisfied by MD Kevin, Lanny Seasonal COVID 19 Vaccine on 08/12/24. Satisfied by CHERYL Santos Donna Electronic Signature on File Electronically Reviewed/Signed by: Sung Brown MD Author Signature Dt/Tm:02/17/2025 02:08 PM Division of Internal Medicine MPM Patient Care team information Care Team Personnel Name: MD Brown Michael P Position: Physician - Internal Med Member Role: Primary Care Provider Address: [address] [place] [address] Telecom: [phone] Name: Rosio Pedraza Position: Rev Int - Rn Pediatric Psych Member Role: HIS Lifetime Care Team Related Persons Name: NEDA COTA Insurance Providers Guarantor name: RONNY COTA Health Plan Information #: 1 Payer: [employer] Member Number: [id number] Policy Number: NA Group Number: [id number] Health Plan Information #: 2 Payer: [employer] Member Number: [id number] Policy Number: NA Group Number: [id number]"
--- OUTSIDE RECORDS SUMMARY | 2025-03-16 06:16 | External Medical Summary | Continuity of Care Document ---
Author Name Unknown Organization [address] Address [address] [place] [id number] Care Team Providers Care Front End Driver Name Role Phone Sung Brown Primary Care Physician [phone] Encounter [facility] [id number] Date(s): 03/04/25 - 03/04/[address], [address] [place] [address] [phone] Encounter Diagnosis Post-nasal drip(Discharge Diagnosis) - 03/04/25 Discharge Disposition: Home or Self Care Attending Physician: MD Oconnor Jesse Referring Physician: MD Oconnor Jesse Encounter Type: Clinic Allergies, Adverse Reactions, Alerts Substance Criticality Severity Reaction Reaction Severity Status amoxicillin-clavul anate Unable to assess criticality Severe Diarrhea Active lisinopril Unknown Active Mold sinus congestion Act phylicia Dust sinus congestion Act phylicia Immunizations Given and Recorded Vaccine Date Status Refusal Reason influenza virus vaccine, inactivated 08/12/24 Barron rded influenza virus vaccine, inactivated 09/25/23 Give n influenza virus vaccine, inactivated 1 08/29/22 Gi ines SARS-CoV-2 (COVID-19) mRNA-vacc - [id number] 08/12/24 Recorded pneumococcal 20-valent conjugate vaccine 06/30/24 Recorded SARS-CoV-2 (COVID-19) mRNA-1273 vaccine 10/31/21 R ecorded SARS-CoV-2 (COVID-19) mRNA-1273 vaccine 03/03/21 R ecorded SARS-CoV-2 (COVID-19) mRNA-1273 vaccine 02/03/21 R ecorded 1Result Comment: Yudi Claudio, [facility] Medications doxycycline hyclate 100 mg oral capsule Start: 02/17/25 1:56:00 PM EDT, 1 cap, PO, bid, Disp# 20 cap, Pharmacy: [facility] Start Date: 02/17/25 Stop Date: 02/27/25 [...] 90 each, Refills: 2, Pharmacy: [facility] Start Date: 02/07/25 Status: Ordered Quantity: 90.0 Unit: each Repeat number: 1 famotidine 40 mg oral tablet Start: 11/29/24 3:31:00 PM EST, 1 tab, PO, Daily, Disp# 90 tab, Refills: 2, Pharmacy: [facility] Start Date: 11/29/24 Status: Ordered Quantity: 90.0 Unit: tab Repeat number: 1 gabapentin 300 mg oral capsule Start: 02/21/25 12:59:00 PM EDT, 1 cap, PO, tid, Disp# 90 cap, Refills: 6, Pharmacy: [facility] Start Date: 02/21/25 Status: Ordered Quantity: 90.0 Unit: cap Repeat number: 7 ipratropium 42 mcg/inh (0.06%) nasal spray Start: 03/04/25 10:28:00 AM EDT, 2 spray, each nostril, qid, Disp# 1 each, PRN: as needed for cold symptoms, Pharmacy: [facility] Start Date: 03/04/25 Status: Ordered Quantity: 1.0 Unit: each Repeat number: 1 Indications: Postnasal drip; levothyroxine 100 mcg (0.1 mg) oral tablet Start: 06/10/24 7:33:00 AM EDT, 1 tab, PO, Daily, Disp# 90 tab, Refills: 0, Pharmacy: [facility] Start Date: 7/25/24 Stop Date: 09/08/24 Status: Ordered Quantity: 90.0 [...] Daily, Disp# 60 cap, Refills: 4, Pharmacy: [facility] Start Date: 12/07/24 Stop [...] Daily, Disp# 30 tab, Refills: 5, Pharmacy: [facility] Start Date: 11/22/24 Status: Ordered Quantity: 30.0 Unit: tab Repeat number: 6 Mental Status 03/04/25 Barriers to Learning one year None evide nt Mandatory Health Literacy Documentation Yes Health Literacy Communication Barriers N ever Primary Language Mohawk Problem List Condition Confirmation Course Effective Dates [...] Active Lumbar stenosis Confirmed Active 1Added per Gas Furnace Installer Review-JW-11/23/24 Diagnosis Diagnosis Type Effective Dates Health Status Cl inical Service Informant Post-nasal drip Discharge Diagnosis 03/04/25 Non-Specified Procedures Procedure Date Related Diagnosis Body [...] to oldest [Reference Range]: 1 Patient Weight 77.7 kg (03/04/25 9:55 AM) Temperature [36.5-37.9 DegC] 36.7 DegC (03/04/25 9:55 AM) Blood Pressure 116/72mmHg (03/04/25 9:57 AM) Social History Social History Type Response Smoking Status Never smoked cigaret tarik Sex Male Sex Representation Male (finding) Patient Care team information Care Team Personnel Name: MD Brown Michael P Position: Physician - Internal Med Member Role: Primary Care Provider Address: [address] [place] [address] [employer]: [phone] Name: Rosio Pedraza Position: Rev Int - [facility] Psych Member Role: HIS Lifetime Care Team Related Persons Name: NEDA COTA Insurance Providers Guarantor name: KIARA COTA Health Plan Information #: 1 Payer: [employer] P[employer] Member Number: [id number] Policy Number: NA Group Number: [id number] Payer Identifier: [id number] Health Plan Information #: 2 Payer: [employer] [facility] Member Number: [id number] Policy Number: NA Group Number: NA Payer Identifier: [id number]
[2025-03-16] MEDS: ENOXAPARIN INJ 40 MG/0.4 ML SYR SQ SCH (08:18)
[2025-03-16] MEDS: guaiFENesin 600 MG TABCR PO SCH (08:20)
[2025-03-16] MEDS: GABAPENTIN 300 MG CAP PO SCH (08:20)
[2025-03-16] MEDS: VIBEGRON 75 MG TAB PO SCH (08:20)
[2025-03-16] MEDS: TAMSULOSIN HCL 0.4 MG CAP PO SCH (08:20)
[2025-03-16] MEDS: DULoxetine HCL 60 MG CAP PO SCH (08:21)
[2025-03-16] MEDS: FAMOTIDINE 40 MG TABLET PO SCH (08:21)
--- NOTE | 2025-03-16 08:37 | Hospitalist Progress Note ---
Date of Service March 16, 2025 Assessment & Plan (1) Rhinovirus infection: (2) GERD (gastroesophageal reflux disease): (3) Depression: (4) BPH loc w urin obs/LUTS: Plan 84yo male presenting with cough, fever, SOB. Found to have entero/rhinovirus infection. Hypoxic prior to arrival, doing well on NC at present #Rhinovirus infection - patient with weakness, cough, fever, SOB, hypoxic on room air upon arrival. Likely secondary to rhinovirus infection. CXR does not suggest bacterial PNA -Continue supplemental O2 -Tylenol PRN -Mucinex BID -Albuterol PRN -Flutter valve and incentive spirometry, pending echo to eval if any cardiac contribution #Weakness - likely secondary to acute illness/metabolic encephalopathy -improved with ER Resusitation -Maintain Fall Precautions -PT/OT evaluations #Depression -Continue Duloxetine 60mg po daily #Hypothyroidism -Continue Synthroid 100mcg po daily Admission and Anticipated Discharge Date Admission Date: March 16, 2025 Subjective pt is accompanied by in room, feels much better less shortness of breath, less cough Physical Exam Physical Exam: lungs have bilateral coarse breath sounds right side more pronounced than left cardiac is regular with neal Results & Data Results & Data Vital Signs (Past 12 Hours) Vital Signs Temp Pulse Pulse Pulse Resp BP BP 03/16/25 07:39 03/16/25 07:32 97.9 F 80 16 126/77 03/16/25 03:50 03/16/25 03:50 03/16/25 03:50 98.1 F 65 18 127/69 03/16/25 03:33 91 H 21 03/16/25 03:31 142/82 H 03/16/25 03:30 98.1 F 03/16/25 03:30 92 H 18 142/82 H 03/16/25 03:12 91 H 23 03/16/25 02:40 92 H 22 120/90 03/16/25 01:33 97 H 03/16/25 01:27 101 H 18 132/88 03/16/25 01:12 98 H 24 03/16/25 01:04 03/16/25 01:04 03/16/25 00:40 102.4 F H 101 H 18 148/84 H 03/16/25 00:35 114 H 03/16/25 00:33 98.6 F 116 H 26 H 185/94 H Pulse Ox O2 Del Method O2 Flow Rate 03/16/25 07:39 Nasal Cannula 2 03/16/25 07:32 94 Nasal Cannula 2 03/16/25 03:50 Nasal Cannula 2 03/16/25 03:50 Nasal Cannula 2 03/16/25 03:50 96 Nasal Cannula 2 03/16/25 03:33 93 Nasal Cannula 3 03/16/25 03:31 03/16/25 03:30 03/16/25 03:30 93 Nasal Cannula 2 03/16/25 03:12 93 Nasal Cannula 2 03/16/25 02:40 94 Nasal Cannula 2 03/16/25 01:33 03/16/25 01:27 94 Nasal Cannula 2 03/16/25 01:12 92 Room Air 03/16/25 01:04 92 Room Air 0 03/16/25 01:04 Nasal Cannula 03/16/25 00:40 92 Room Air 03/16/25 00:35 03/16/25 00:33 92 Room Air Laboratory Results review cbc-elevated wbc review chemistry PG Care Time/CCT Total # of Minutes Spent Total Time Spent with Patient: Total time spent is greater than 50% in coordination of care (as documented) at patient's floor/unit and/or counseling patient: Coding Level of Care Code 66846 SUB INP/OBS CARE 2/35MIN Diagnoses Rhinovirus infection B34.8 GERD (gastroesophageal reflux disease) K21.9 Depression F32.9 BPH loc w urin obs/LUTS N40.1
[2025-03-17 06:46] LABS: Hematocrit (blood only) 39.7 % (42.0-52.0); Hemoglobin 13.3 g/dl (14.0-18.0); Mean Corpuscular Hemoglobin 30.4 pg (25.0-34.0); Mean Corpuscular Hgb Conc 33.5 g/dL (32.0-36.0); Mean Corpuscular Volume 90.8 fL (80.0-100.0); Mean Platelet Volume 10.5 fL (9.4-12.4); Platelet Count 152 K/uL (130-400); RDW Coefficient of Variation 13.2 % (11.5-14.5); RDW Standard Deviation 44.4 fL (36.4-46.3); Red Blood Count 4.37 M/uL (4.70-6.10); White Blood Count 7.91 K/ul (4.8-10.8)
[2025-03-17 07:10] LABS: BUN Creatinine Ratio 16.5 (10-20); Calcium 8.4 mg/dl (8.6-10.3); Creatinine Clr Calc Pharmacy 53.2 ml/min; Potassium 3.8 mmol/L (3.5-5.1)
--- NOTE | 2025-03-17 09:43 | Electrocardiogram Report ---
Test Reason : Blood Pressure : */* mmHG Vent. Rate : 114 BPM Atrial Rate : * BPM P-R Int : * ms QRS Dur : 70 ms QT Int : 308 ms P-R-T Axes : * -11 63 degrees QTcB Int : 424 ms Accelerated Junctional rhythm Abnormal ECG When compared with ECG of 22-Nov-2023 15:18, Junctional rhythm has replaced Sinus rhythm Confirmed by Luis Angel Koenig ([id number]) on 03/17/2025 9:42:54 AM Referred By: Confirmed By: Luis Angel Koenig
[2025-03-17] MEDS: OPTIRAY 320 100ml IV ONE (09:53)
--- NOTE | 2025-03-17 10:14 | CT Scan Report ---
FACIAL BONE CT WITH IV CONTRAST CLINICAL HISTORY: Right sided swelling of jaw, concern for abscess. COMPARISON STUDY: Head CT September 23, 2022. TECHNIQUE: Axial images of the face were obtained following intravenous injection of 94 cc of Optiray 320 IV. Sagittal and coronal reformats were viewed. A dose lowering technique was utilized adhering to the principles of ALARA. FINDINGS: Visualized portions of the intracranial contents are unremarkable. White matter hypodensity suggests small vessel disease. Maxillary sinuses are clear. There are postoperative findings within the sinuses. There is no evidence for acute sinusitis. Parotid and submandibular glands are normal. E piglottis is normal. No orbital abnormality is identified. Multiple teeth are absent. There are denta l caries and a periapical lucency involving the right mandibular first premolar (ADA #28) no adjacent soft tissue abscess is present. There is subtle asymmetric overlying soft tissue swelling and edema. No facial fluid collections are identified. IMPRESSION: 1. Dental caries and a periapical lucency involving the right first mandibular premolar with no adjac ent soft tissue abscess. Mild associated soft tissue swelling and edema favors cellulitis. 2. No facial fluid collections. ACT 112: Negative or not required by law. Electronically signed by: Vincent Joya M.D. 03/17/2025 10:13 AM
--- NOTE | 2025-03-17 13:57 | XCELERA ---
[id number]
--- NOTE | 2025-03-17 17:19 | Oral/Maxillofacial Consult ---
Date of Consultation March 17, 2025 Assessment & Plan (1) Abscess of pulp of tooth: (2) Pain due to dental caries: (3) Facial abscess: History of Present Illness Reason for Consultation: dental pain and swelling lower right Attending Physician: Young Julian History of Present Illness Problem: Pain,swelling located---lower right # 29 area Finding: There is a carious, fractured and infected tooth at site#:29 and upper # 5 area Plan: Surgical removal of the following tooth/teeth:# 5 and # 29 I reviewed the medical history and vital signs. An oral exam was completed I noted decayed and grossly fractured # 5 and # 29, swelling lower right gum and subperiosteal area lower right. I reviewed that we can sedate Mr. Peguero and take him to the OR tomorrow for the 2 surgical extraction and curettement of the radiolucent lesion at the apex of # 29 The Informed consent was reviewed and the consent form was signed. I gave Mr and Mrs Peguero time to discuss any questions and if I explained the surgery that I will be performing to their understanding. I discussed the case with Dr Julian and we will keep him NPO for surgery tomorrow. Allergies Allergy/AdvReac Type Severity Reaction Status Date / Time No Known Allergies Allergy Verified 03/16/25 01:04 Home Medications Medication Instructions Recorded Confirmed Type cholecalciferol (vitamin D3) 50 2,000 unit PO QAM 01/20/19 03/16/25 History mcg (2,000 unit) capsule (Vitamin D3) famotidine 40 mg tablet (Pepcid) 40 mg PO DAILY 08/12/22 03/16/25 History gabapentin 300 mg capsule 300 mg PO TID 11/22/23 03/16/25 History duloxetine 60 mg capsule,delayed 60 mg PO DAILY 11/15/24 03/16/25 History release tamsulosin 0.4 mg capsule 0.4 mg PO DAILY 11/15/24 03/16/25 History ipratropium bromide 42 mcg (0.06 2 spray intranasal QID PRN Cold 03/16/25 03/16/25 History %) nasal spray Symptoms levothyroxine 100 mcg tablet 100 mcg PO DAILY 03/16/25 03/16/25 History vibegron 75 mg tablet (Gemtesa) 75 mg PO DAILY 03/16/25 03/16/25 History guaifenesin 600 mg tablet, 600 mg PO Q12 #10 tabs 03/17/25 Rx extended release 12 hr (Mucinex) Patient History Medical History (Updated 03/17/25 @ 17:25 by Charli Olson DMD) Weakness Pancytopenia Rhabdomyolysis 09/2022?? patient unsure, but was treated at [facility] inpatient for Influenza A. Restless leg syndrome BPH w urinary obs/LUTS History of Mohs micrographic surgery for skin cancer Hx of squamous cell carcinoma of the skin Hx of basal cell carcinoma Pneumothorax partially collapsed right lung -> incidentally found on scans at [facility] and treated with [facility] ~Spring 2020. patient does state he still has sob occasionally, he does monitor his oxygen levels at home and they have been "fine", 94-95% on RA. does not use oxygen. Chronic fatigue unknown cause History of COVID-19 x2 (October 2020 - treated through the emergency room & spring - asymptomatic) no current problems. Chronic sore throat year around -- unknown reason. following with PCP (possibly could be spinal stenosis) Cervical spinal stenosis Idiopathic polyneuropathy Spinal stenosis of lumbar region Impaired gait Vitamin D deficiency Osteoarthritis Spinal stenosis Abnormal gag reflex RESOLVED Hearing deficit Anxiety Sleep apnea unable to use cpap machine. Surgical History S/P epidural steroid injection LESI Hx of vasectomy History of right inguinal hernia repair History of colonoscopy History of tooth extraction History of tonsillectomy and adenoidectomy History of endoscopic sinus surgery x2 History of bilateral cataract extraction Family History Mother Lung cancer Father Stroke Tremor Other No family history of adverse response to anesthesia Social History Smoking Status: Never smoker Second Hand Exposure: No; Do You Dip or Chew Tobacco: No; Tobacco Cessation Education Requested by Patient: No Hx Alcohol Use: No Hx Substance Use: No Preferred Language: Kyrgyz Communication Ability: Effective 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 Beliefs That Will Affect Care: None Current Living Situation: Spouse Current Living Situation Comment: Lives at home Other Information That Helps Us Care for You: No Feels Safe at Home: Yes Safety Concerns: Feels Safe At This Time Assistive Devices: None Results & Data Vital Signs (Past 12 Hours) Vital Signs Temp Pulse Resp BP Pulse Ox O2 Del Method 03/17/25 14:36 36.5 C 80 16 115/72 94 Room Air 03/17/25 07:27 Room Air 03/17/25 07:14 36.8 C 79 18 120/76 96 Room Air PG Care Time/CCT Total # of Minutes Spent Total Time Spent with Patient: Total time spent is greater than 50% in coordination of care (as documented) at patient's floor/unit and/or counseling patient: Coding Level of Care Code 35736 INT INP/OBS CARE 1/40MIN Diagnoses Abscess of pulp of tooth K04.01 Pain due to dental caries K02.9 Facial abscess L02.01
--- NOTE | 2025-03-17 17:44 | Hospitalist Progress Note ---
Date of Service March 17, 2025 Assessment & Plan (1) Rhinovirus infection: (2) GERD (gastroesophageal reflux disease): (3) Depression: (4) BPH loc w urin obs/LUTS: Plan 84yo male presenting with cough, fever, SOB. Found to have entero/rhinovirus infection. Hypoxic prior to arrival, doing well on NC at present #Rhinovirus infection - patient with weakness, cough, fever, SOB, hypoxic on room air upon arrival. Likely secondary to rhinovirus infection. CXR does not suggest bacterial PNA -Continue supplemental O2 -Tylenol PRN -Mucinex BID -Albuterol PRN -Flutter valve and incentive spirometry, pending echo to eval if any cardiac contribution -Patient appears to be at baseline #oral abscess -Patient will have tooth extracted in AM as this is causing severe pain for the patient. will likely start on antibiotics. #Weakness - likely secondary to acute illness/metabolic encephalopathy -improved with ER Resusitation -Maintain Fall Precautions -PT/OT evaluations #Depression -Continue Duloxetine 60mg po daily #Hypothyroidism -Continue Synthroid 100mcg po daily Admission and Anticipated Discharge Date Admission Date: March 16, 2025 Subjective 84 yo male reports having pain in his right lower gums by his most posteroir molar. He reports it is very tender to touch. Review of Systems Review of Systems: All systems reviewed & are unremarkable except as noted in HPI & below Physical Exam Constitutional: WD/WN, vitals as above ENMT: lower right gum showing some inflammation. Neck: trachea midline, no thyromegaly Results & Data Results & Data Vital Signs (Past 12 Hours) Vital Signs Temp Pulse Resp BP Pulse Ox O2 Del Method 03/17/25 14:36 36.5 C 80 16 115/72 94 Room Air 03/17/25 07:27 Room Air 03/17/25 07:14 36.8 C 79 18 120/76 96 Room Air PG Care Time/CCT Total # of Minutes Spent Total Time Spent with Patient: Total time spent is greater than 50% in coordination of care (as documented) at patient's floor/unit and/or counseling patient: Coding Level of Care Code 44311 SUB INP/OBS CARE 3/50MIN Diagnoses Rhinovirus infection B34.8 GERD (gastroesophageal reflux disease) K21.9 Depression F32.9 BPH loc w urin obs/LUTS N40.1 Time Spent (min) 50
[2025-03-17] MEDS: AMPICILLIN/SULBACTAM SOD 3,000 MG/100 ML BAG IV SCH (18:57)
--- NOTE | 2025-03-17 21:17 | XRay Report ---
EXAM: CHEST RADIOGRAPH PA AND LATERAL VIEWS TECHNIQUE: PA and lateral view radiographs of the chest were obtained. INDICATION: Preoperative evaluation. COMPARISON: Chest radiograph March 16, 2025 FINDINGS: The cardiac silhouette is normal in size. No focal consolidation is identified. Unchanged bibasilar atelectasis. No pleural fluid. No discernible pneumothorax. No displaced acute osseous process identified. Unchanged mild elevation of the right hemidiaphragm interposed colon beneath. IMPRESSION: No radiographic evidence of acute cardiopulmonary process. Electronically signed by Sergio Blair 03-17-2025 9:16 PM
[2025-03-18] MEDS ORDERED: PHENYLEPHRINE 100MCG/ML 5ML SYR ONE (06:44)
[2025-03-18] MEDS ORDERED: PROPOFOL IV EMULSION 10 MG/ML 20 ML VIAL IV ONE (06:44)
[2025-03-18] MEDS ORDERED: SUCCINYLCHOLINE CHLORIDE 20 MG/ML 10 ML VIAL IV ONE (06:44)
[2025-03-18] MEDS ORDERED: fentaNYL citrate PF 100 MCG/2 ML VIAL ONE (06:44)
[2025-03-18] MEDS ORDERED: LIDOCAINE 2% 2 ML VIAL/AMP(20MG/ML) INFIL ONE (06:44)
[2025-03-18] MEDS ORDERED: DEXAMETHASONE SOD INJ 4 MG/ML VIAL ONE (06:44)
[2025-03-18] MEDS ORDERED: ONDANSETRON INJ 2 MG/ML 2 ML VIAL ONE (06:44)
[2025-03-18] MEDS ORDERED: ONDANSETRON INJ 2 MG/ML 2 ML VIAL IV PRN (06:52)
[2025-03-18] MEDS ORDERED: ePHEDrine sulfate 50 MG/ML AMP IV PRN (06:52)
[2025-03-18] MEDS ORDERED: ATROPINE SULFATE 0.1 MG/ML 10ML SYR IV PRN (06:52)
[2025-03-18] MEDS ORDERED: fentaNYL citrate PF 100 MCG/2 ML VIAL IV PRN (06:52)
--- NOTE | 2025-03-18 06:52 | Anesthesiology Consultation ---
Date of Service March 18, 2025 Assessment & Plan (1) Encounter for pre-operative examination: Chart Review Chart Review: Acceptable Risk for Surgery and Patient NOT seen in Pre Admission Testing Consults Requested none History Surgery Operation Date: 03/18/25 07:00 Proposed Procedures p Facial Abscess Incision and Drainage - Charli Olson DMD s Teeth Extraction 5 and 29 - Charli Olson DMD Height/Weight Height: 5 ft 10 in Weight: 77.111 kg Allergies Allergy/AdvReac Type Severity Reaction Status Date / Time No Known Allergies Allergy Verified 03/16/25 01:04 Medications Home Medications Medication Instructions Recorded Confirmed Last Taken cholecalciferol (vitamin D3) 50 2,000 unit PO QAM 01/20/19 03/16/25 11/25/22 mcg (2,000 unit) capsule (Vitamin D3) famotidine 40 mg tablet (Pepcid) 40 mg PO DAILY 08/12/22 03/16/25 09/22/22 gabapentin 300 mg capsule 300 mg PO TID 11/22/23 03/16/25 Unknown duloxetine 60 mg capsule,delayed 60 mg PO DAILY 11/15/24 03/16/25 Unknown release tamsulosin 0.4 mg capsule 0.4 mg PO DAILY 11/15/24 03/16/25 Unknown ipratropium bromide 42 mcg (0.06 2 spray intranasal QID PRN Cold 03/16/25 03/16/25 Unknown %) nasal spray Symptoms levothyroxine 100 mcg tablet 100 mcg PO DAILY 03/16/25 03/16/25 Unknown vibegron 75 mg tablet (Gemtesa) 75 mg PO DAILY 03/16/25 03/16/25 Unknown guaifenesin 600 mg tablet, 600 mg PO Q12 #10 tabs 03/17/25 Unknown extended release 12 hr (Mucinex) Active Medications Generic Name Dose Route Start Last Admin Trade Name Freq PRN Reason Stop Dose Admin Duloxetine HCl 60 mg 03/16/25 09:00 03/17/25 08:02 Duloxetine Hcl 60 Mg Cap PO 04/15/25 08:59 60 mg DAILY LUPE Administration Enoxaparin Sodium 40 mg 03/16/25 09:00 03/17/25 09:02 Enoxaparin Inj 40 Mg/0.4 Ml Syr SQ 04/15/25 08:59 40 mg Q24H LUPE Administration Famotidine 40 mg 03/16/25 09:00 03/17/25 08:03 Famotidine 40 Mg Tablet PO 04/15/25 08:59 40 mg DAILY LUPE Administration Gabapentin 300 mg 03/16/25 09:00 03/17/25 19:57 Gabapentin 300 Mg Cap PO 04/15/25 08:59 300 mg TID LUPE Administration Guaifenesin 600 mg 03/16/25 09:00 03/17/25 19:57 Guaifenesin 600 Mg Tabcr PO 04/15/25 08:59 600 mg Q12 LUPE Administration Ampicillin Sodium/Sulbactam Sodium 3,000 mg in 100 mls @ 200 mls/hr 03/17/25 18:00 03/18/25 05:50 Unasyn IV 03/27/25 17:59 Infused Q6H LUPE Infusion Levothyroxine Sodium 100 mcg 03/16/25 06:30 03/18/25 05:09 Levothyroxine Sodium 100 Mcg Tablet PO 04/15/25 06:29 100 mcg DAILYBB LUPE Administration Tamsulosin HCl 0.4 mg 03/16/25 09:00 03/17/25 08:03 Tamsulosin Hcl 0.4 Mg Cap PO 04/15/25 08:59 0.4 mg DAILY LUPE Administration Vibegron 75 mg 03/16/25 09:00 03/17/25 08:03 Vibegron 75 Mg Tab PO 04/15/25 08:59 75 mg DAILY LUPE Administration NPO Date Last Intake of Fluids: 03/16/25 Time Last Intake of Fluids: 23:59 Date Last Intake of Solids: 03/16/25 Time Last Intake of Solids: 23:59 Past Medical History Medical History Weakness Pancytopenia Rhabdomyolysis 09/2022?? patient unsure, but was treated at [facility] inpatient for Influenza A. Restless leg syndrome BPH w urinary obs/LUTS History of Mohs micrographic surgery for skin cancer Hx of squamous cell carcinoma of the skin Hx of basal cell carcinoma Pneumothorax partially collapsed right lung -> incidentally found on scans at [facility] and treated with [facility] ~Spring 2020. patient does state he still has sob occasionally, he does monitor his oxygen levels at home and they have been "fine", 94-95% on RA. does not use oxygen. Chronic fatigue unknown cause History of COVID-19 x2 (October 2020 - treated through the emergency room & spring - asymptomatic) no current problems. Chronic sore throat year around -- unknown reason. following with PCP (possibly could be spinal stenosis) Cervical spinal stenosis Idiopathic polyneuropathy Spinal stenosis of lumbar region Impaired gait Vitamin D deficiency Osteoarthritis Spinal stenosis Abnormal gag reflex RESOLVED Hearing deficit Anxiety Sleep apnea unable to use cpap machine. Past Family History Family History Mother Lung cancer Father Stroke Tremor Other No family history of adverse response to anesthesia Past Surgical History Surgical History S/P epidural steroid injection LESI Hx of vasectomy History of right inguinal hernia repair History of colonoscopy History of tooth extraction History of tonsillectomy and adenoidectomy History of endoscopic sinus surgery x2 History of bilateral cataract extraction Social History Smoking Status: Never smoker Do You Dip or Chew Tobacco: No Hx Alcohol Use: No Hx Substance Use: No substance use type: does not use Physical Exam Vital Signs Last Vital Signs Temp 36.5 C 03/17/25 19:17 Pulse 80 03/17/25 19:17 Resp 16 03/17/25 14:36 BP 125/71 03/17/25 19:17 Pulse Ox 96 03/17/25 19:17 O2 Del Method Room Air 03/17/25 19:57 O2 Flow Rate 2 03/16/25 07:39 Testing Laboratory Results 03/17/25 06:25 03/17/25 06:25 Urine Color Yellow 03/16/25 00:34 Urine Appearance Clear (Clear) 03/16/25 00:34 Urine pH 6.0 (4.5-7.5) 03/16/25 00:34 Ur Specific Thayer 1.018 (1.000-1.030) 03/16/25 00:34 Urine Protein Negative (Negative) 03/16/25 00:34 Urine Glucose (UA) Negative (Negative) 03/16/25 00:34 Urine Ketones 1+ (Negative) H 03/16/25 00:34 Urine Nitrite Negative (Negative) 03/16/25 00:34 Ur Leukocyte Esterase Negative (Negative) 03/16/25 00:34 03/16/25 01:27 Aerobic Blood Culture - Preliminary Blood No growth in Aerobic bottle after 48 hours. Anaerobic Blood Culture - Preliminary No growth in Anaerobic bottle after 48 hours. 03/16/25 01:20 Aerobic Blood Culture - Preliminary Blood No growth in Aerobic bottle after 48 hours. Anaerobic Blood Culture - Preliminary No growth in Anaerobic bottle after 48 hours. Electrocardiogram Date: 03/16/25 DICTATED BY: Luis Angel Koenig MD, PhD Test Reason : Blood Pressure : */* mmHG Vent. Rate : 114 BPM Atrial Rate : * BPM P-R Int : * ms QRS Dur : 70 ms QT Int : 308 ms P-R-T Axes : * -11 63 degrees QTcB Int : 424 ms Accelerated Junctional rhythm Abnormal ECG When compared with ECG of 22-Nov-2023 15:18, Junctional rhythm has replaced Sinus rhythm Confirmed by Luis Angel Koenig ([id number]) on 03/17/2025 9:42:54 AM Echocardiogram EF 55-60%. Moderate LVH.
[2025-03-18] MEDS ORDERED: ROCURONIUM BROMIDE 10 MG/ML 5 ML VIAL IV ONE (06:56)
[2025-03-18] MEDS ORDERED: SUGAMMADEX SODIUM 200 MG/2 ML VIAL IV ONE (06:56)
--- NOTE | 2025-03-18 07:24 | History & Physical Bridge Note ---
Date of Service March 18, 2025 History & Physical Bridge Note I have examined the patient, reviewed the History & Physical and in the interval since the performance of the History & Physical I have noted the following changes of clinical significance: no changes noted. We will plan the I&D and 2 extractions. The plan is for D/C as per hospital medicine today.
[2025-03-18] MEDS: LACTATED RINGER'S 1,000 ML IV SCH (07:28)
[2025-03-18] MEDS: BUPIVACAINE/EPINEPHRINE 0.5% 1:200,000 1.8 ML CARP ONE (08:15)
[2025-03-18] MEDS: CHLORHEXIDINE GLUCONATE 0.12% 480 ML MT ONE (08:15)
--- NOTE | 2025-03-18 08:51 | Post Operative Brief Note ---
PG Immediate Post Op with CF Date of Surgery March 18, 2025 Pre & Post Diagnosis Operation Date: 03/18/25 07:00 Pre-Op Diagnosis: (1) Abscess of pulp of tooth: (2) Pain due to dental caries: (3) Facial abscess: Post-Op Diagnosis: (1) Abscess of pulp of tooth: (2) Pain due to dental caries: (3) Facial abscess: I identified the patient and participated in the time-out.: Yes Procedure Operation Date: 03/18/25 07:00 Actual Procedures p Right Facial Abscess Incision and Drainage(Right) - Charli Olson DMD s Teeth Extraction of Absessed 5 and 28(Not Applicable) - Charli Olson DMD Surgeon Charli Olson DMD Ripsaw Grader none Estimated Blood Loss 2 Findings Consistent with Post-Op Diagnosis swollen lower right gum and jaw area painful tooth # 5 and 28 Specimens Specimen Description: none per surgeon Anesthesia Type General Complications none Disposition Accompanied Patient To Recovery: Yes
--- NOTE | 2025-03-18 08:53 | Operative Report ---
PG Post Operative Report Pre & Post Diagnosis Operation Date: 03/18/25 07:00 Pre-Op Diagnosis: (1) Abscess of pulp of tooth: (2) Pain due to dental caries: (3) Facial abscess: Post-Op Diagnosis: (1) Abscess of pulp of tooth: (2) Pain due to dental caries: (3) Facial abscess: I identified the patient and participated in the time-out.: Yes Procedure Operation Date: 03/18/25 07:00 Actual Procedures p Right Facial Abscess Incision and Drainage(Right) - Charli Olson DMD s Teeth Extraction of Absessed 5 and 28(Not Applicable) - Charli Olson DMD Surgeon Charli Olson DMD Inserting Operator none Estimated Blood Loss 2 Findings Consistent with Post-Op Diagnosis Specimens none Drains none Anesthesia Type General Complications none Disposition Accompanied Patient To Recovery: Yes Indications pain and swelling jaws and teeth right side Description of Procedure D7210 and D7140 $ 155 +$ 85= $240 CPT 64810---VHW53 K12.2 Actual Procedures p Incision and Drainage Submandibular/subperiosteial Abscess; Removal of Tooth #28, extraction # 5 (Not Applicable) - Charli Olson DMD Once cleared for surgery general anesthesia was achieved, the eyes were protected by the anesthesia dept criteria. A time out was take for patient ID, antibiotics, equipment and position verification once all agreed the procedure began. Local anesthesia using Marcaine with a vasoconstrictor ( 1.8 ml per site) given into right inferior alveolar nerve and upper right # 5 area A throat pack was placed after the oral cavity was irrigated with saline. Once a surgical level of anesthesia was obtained and the local anesthesia was given time for the blocks the surgery was started. I turned my attention to the infection which was located in the floor of the mouth and submental area. The tongue was elevated and there was also swelling associated with tooth # 28 ( see CT scan report) Incision and Drainage Using a 15 blade an incision was made in the swollen mucobuccal fold associated with # 28 Once the incision was made a lot of pus extruded from the site. A curved hemostat was carefully placed into the infected space along the lateral side of the lower jaw and into the subperiosteal space. Some further drainage was now allowed to escape. I palpated the cheek and no further drainage was expressed. The area was irrigated with at least 100 ml of NS solution. I now turned my attention to remove the # 28 tooth. Surgical ext Lower # 28 ---D7210 ( self pay $ 155-please bill patient) The full thick Muco-periosteal flap was made on the facial aspect from # 27-29. The flap was reflected to expose the the subperiosteal space the bone adjacent to # 28. The rongeur was used to remove bone, the tooth was removed with a 301 elevator, the mental nerve was intact, there was a large amount of granulation tissue on the apex and some more pus that was expressed. Surgical Anu placed and the sutured with 2-0 chromic x 2 Simple ext Upper # 5 ---D7140 ( self pay $ 85-please bill patient) Simple extraction of fractured # 5 removed with dental forceps. Surgical Anu placed and the sutured with 2-0 chromic x 2 I attest to the content of the Intraoperative Record and any orders documented therein. Any exceptions are noted below.
[2025-03-18 09:53] VITALS: RESP 16
--- NOTE | 2025-03-18 10:07 | Anesthesiology Progress Note ---
Date of Service March 18, 2025 Anesthesia Post Procedure Vital Signs Vital Signs: Temp Pulse Pulse Resp BP BP Pulse Ox 03/18/25 09:50 70 16 141/78 H 92 03/18/25 08:55 36.2 C L 77 15 134/88 94 03/18/25 08:45 67 17 131/74 90 03/18/25 08:35 71 18 133/81 96 03/18/25 08:27 36.2 C L 86 24 159/95 H 94 03/18/25 07:23 36.7 C 81 16 144/87 H 95 03/17/25 19:57 03/17/25 19:17 36.5 C 80 125/71 96 03/17/25 14:36 36.5 C 80 16 115/72 94 O2 Del Method O2 Flow Rate 03/18/25 09:50 Room Air 03/18/25 08:55 Nasal Cannula 2 03/18/25 08:45 Room Air 03/18/25 08:35 Oxymask 4 03/18/25 08:27 Oxymask 6 03/18/25 07:23 Room Air 03/17/25 19:57 Room Air 03/17/25 19:17 Room Air 03/17/25 14:36 Room Air Pain Intensity Generalized: Pain Intensity: 0 Transfer of Care Handoff Completed per policy Notes Mental Status: alert / awake / arousable and participated in evaluation Patient Amnestic to Procedure: Yes Nausea / Vomiting: adequately controlled Pain: adequately controlled Airway Patency, RR, SpO2: stable & adequate BP & HR: stable & adequate Hydration State: stable & adequate Anesthetic Complications: no major complications apparent and Pt Satisfied with anesthetic care
[2025-03-18 10:54] LABS: Hematocrit (blood only) 39.2 % (42.0-52.0); Hemoglobin 13.2 g/dl (14.0-18.0); Mean Corpuscular Hemoglobin 30.6 pg (25.0-34.0); Mean Corpuscular Hgb Conc 33.7 g/dL (32.0-36.0); Mean Corpuscular Volume 90.7 fL (80.0-100.0); Mean Platelet Volume 11.1 fL (9.4-12.4); Platelet Count 161 K/uL (130-400); RDW Standard Deviation 43.5 fL (36.4-46.3); Red Blood Count 4.32 M/uL (4.70-6.10); White Blood Count 7.11 K/ul (4.8-10.8)
[2025-03-18 11:04] LABS: BUN Creatinine Ratio 20.4 (10-20); Calcium 8.5 mg/dl (8.6-10.3); Creatinine Clr Calc Pharmacy 53.2 ml/min; Potassium 4.2 mmol/L (3.5-5.1)
[2025-03-18 11:22] VITALS: BP 111/68; PULSE 68; TEMP 97.7; O2SAT 93
--- NOTE | 2025-03-18 11:52 | Discharge Summary ---
Discharge Summary Date of Service March 18, 2025 Principal Dx & Hospital Course #1 = Principal Diagnosis (1) Rhinovirus infection: (2) GERD (gastroesophageal reflux disease): (3) Depression: (4) BPH loc w urin obs/LUTS: Plan 84yo male presenting with cough, fever, SOB. Found to have entero/rhinovirus infection. Hypoxic prior to arrival, doing well on NC at present #Rhinovirus infection - patient with weakness, cough, fever, SOB, hypoxic on room air upon arrival. Likely secondary to rhinovirus infection. CXR does not suggest bacterial PNA -Continue supplemental O2 -Tylenol PRN -Mucinex BID -Albuterol PRN -Flutter valve and incentive spirometry. -Patient improved with supportive care and appears to be at baseline; will discharge. #oral abscess s/p tooth extracted as this was causing severe pain for the patient. will likely start on antibiotics. #Weakness - likely secondary to acute illness/metabolic encephalopathy -improved with ER Resusitation -Maintain Fall Precautions -PT/OT evaluations #Depression -Continue Duloxetine 60mg po daily #Hypothyroidism -Continue Synthroid 100mcg po daily Admission HPI Per Admitting Provider Ronny Peguero is an 84yo male presenting with cough, SOB and fever. Patient has had symptoms ongoing for the last several days. His cough brown been productive for yellow sputum. He has had fever as well. Today patient had significant generalized weakness and was unable to get up and ambulate in his home. Patient typically uses a walker and reports that it took him over 9 times to get up to ambulate to the bathroom. He had one episode of diarrhea and some nausea as well. Otherwise denies chest pain, palpitations, abdominal pain, urinary symptoms Patient placed on supplemental O2 by EMS prior to arrival Presently saturating 93% on 3L Discharge Exam Constitutional WD/WN, vitals as above Neck trachea midline, no thyromegaly Discharge Plan Discharge Items Patient Disposition: Home - Self-Care Reason For Visit: COUGH, WEAKNESS Discharge Diagnosis: Cough, weakness Activity: Resume your previous activity Bathing: No limitations Exercise/Sports: As tolerated Non-emergency contact: Primary Care Provider and Surgeon Call non-emergency contact if: you have any medication questions Follow-up/Referrals: Sung Brown MD [Primary Care Provider] - Charli Olson DMD [Physician] - Diet: Regular Diet Texture: Easy to Chew Addtl Attending Provider Instructions: recommend followup with PCP in 1-2 weeks. Recommend followup with Dentist within 10 days. 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 It is very important to keep your mouth clean to prevent infection. * Starting tonight rinse with the Peridex as directed then 2 x a day * it is very important to keep well hydrated, this prevents fever and possible dry socket pain SPECIAL CARE INSTRUCTIONS: *It is not uncommon that between day 2-4 that your swelling will be at its worst this is very normal, do not be alarmed. * Keep ice on the side of your face for the next 24 to 36 hours. This will help keep the swelling down. * A certain amount of bleeding is to be expected. It is often possible to control mild oozing by placing folded gauze over the area and biting down for 30 minutes. If you are unable to control excessive bleeding, call Dr Olson at [phone] * You may experience some discomfort for a few days. If pain or swelling increases, Call Dr Olson * Return to the office for a follow up check up if your having any issues otherwise no follow up is needed * office address--[facility] [address] phone # [phone] Pending Studies at Discharge: No Stand-Alone Forms: [facility] [employer], Smoking Cessation Medications and DC Order Prescriptions: New guaifenesin [Mucinex] 600 mg Tablet Extended Release 12hr 600 mg PO Q12 Qty: 10 0RF Continued duloxetine 60 mg capsule,delayed release(DR/EC) 60 mg PO DAILY tamsulosin 0.4 mg capsule 0.4 mg PO DAILY cholecalciferol (vitamin D3) [Vitamin D3] 2,000 unit Capsule 2,000 unit PO QAM famotidine [Pepcid] 40 mg Tablet 40 mg PO DAILY gabapentin 300 mg capsule 300 mg PO TID levothyroxine 100 mcg tablet 100 mcg PO DAILY ipratropium bromide 42 mcg (0.06 %) spray,non-aerosol 2 spray INTRANASAL QID PRN (Reason: Cold Symptoms) Gemtesa 75 mg tablet 75 mg PO DAILY Discharge Orders: Discharge Order (Routine); Ordered 03/18/25 Ordered By: Young Julian Admission Data Admit Date/Time: 03/16/25 03:21 Attending Provider: Young Julian Admit Provider: Afua Joyner Primary Care Provider: Sung Brown Other Providers: Afua Joyner; Charli Olson Other Interventions: Discharge Summary Assessment (RN) Last Done: 03/18/25 11:48 Hospital Stay Data Consultations 03/16/25 03:07 ED Decision to Admit Stat 03/17/25 09:47 Consult Oromaxillofacial Surgery Routine Procedures Performed Operation Date: 03/18/25 07:00 Actual Procedures p Right Facial Abscess Incision and Drainage(Right) - Charli Olson DMD s Teeth Extraction of Absessed 5 and 28(Not Applicable) - Charli Olson DMD Diagnostic Imagining Performed 03/17/25 08:53 CT facial bones w con Urgent Pending Results Patient Have Any Pending Studies at Discharge: No Discharge Instructions Given to Patient (Per Discharging Provider) recommend followup with PCP in 1-2 weeks. Recommend followup with Dentist within 10 days. Total Time Total Time Spent Total Time Spent (In Minutes): 32 Coding Level of Care Code 00081 INP/OBS DISCH >30 MIN Diagnoses Rhinovirus infection B34.8 GERD (gastroesophageal reflux disease) K21.9 Depression F32.9 BPH loc w urin obs/LUTS N40.1
== END 2025-03-18 13:22 | disposition home or self-care (01) | DRG 853 ==
LOC: ED 00:26 → SUATTDRO 03:21 → 3W 03:21
DX: F32.A Depression, unspecified; L02.01 Cutaneous abscess of face; K04.7 Periapical abscess without sinus; K12.2 Cellulitis and abscess of mouth; G93.41 Metabolic encephalopathy; N40.1 Benign prostatic hyperplasia with lower urinary tract symptoms; E03.9 Hypothyroidism, unspecified; R09.02 Hypoxemia; K21.9 Gastro-esophageal reflux disease without esophagitis; K02.9 Dental caries, unspecified; B34.8 Other viral infections of unspecified site